=== PATIENT | male | born 1950 | race Caucasian/White ===

== ENCOUNTER 2018-09-20 08:58 | Outpatient (REF) | payer MEDICARE, MEDICAID, SELFPAY ==
[2018-09-20 11:01] LABS: BUN 17 mg/dL (7-18); CREATININE 0.85 mg/dL (0.70-1.30); Calcium 9.3 mg/dL (8.5-10.1); Chloride 100 mmol/L (98-107); Glucose 104 mg/dL (70-100); Potassium 3.5 mmol/L (3.5-5.1); Sodium 137 mmol/L (136-145)
== END 2018-09-20 09:18 ==
LOC: NCHCN 08:58
PROVIDERS: PCP Internal Medicine; Visit Provider Internal Medicine
DX: I10 Essential (primary) hypertension (principal); K42.9 Umbilical hernia without obstruction or gangrene
CPT/HCPCS: 80048

== ENCOUNTER 2019-09-10 10:01 | Outpatient (REF) | payer MEDICARE, MEDICAID, SELFPAY ==
[2019-09-10 21:39] LABS: BUN 13 mg/dL (7-18); CREATININE 0.89 mg/dL (0.70-1.30); Calcium 9.2 mg/dL (8.5-10.1); Calculated LDL 117 mg/dL (<100); Chloride 99 mmol/L (98-107); Cholesterol 202 mg/dL (<200); Glucose 122 mg/dL (74-106); HDL Cholesterol 74 mg/dL (40-60); Potassium 3.4 mmol/L (3.5-5.1); Sodium 137 mmol/L (136-145); Triglyceride 58 mg/dL (<150)
== END 2019-09-10 10:21 ==
LOC: NCHCN 10:01
PROVIDERS: PCP Internal Medicine; Visit Provider Internal Medicine
DX: E78.5 Hyperlipidemia, unspecified (principal); I10 Essential (primary) hypertension
CPT/HCPCS: 80048; 80061

== ENCOUNTER 2020-04-21 22:33 | Outpatient (REF) | payer MEDICARE, MEDICAID, SELFPAY ==
[2020-04-21 13:01] LABS: Potassium 3.3 mmol/L (3.5-5.1)
== END 2020-04-21 22:34 | disposition home or self-care (01) ==
LOC: NCHCN 22:33
PROVIDERS: PCP Internal Medicine; Visit Provider Internal Medicine
DX: I10 Essential (primary) hypertension (principal)
CPT/HCPCS: 84132

== ENCOUNTER 2020-05-12 08:37 | Outpatient (REF) | payer MEDICARE, MEDICAID, SELFPAY ==
[2020-05-12 12:11] LABS: Potassium 3.8 mmol/L (3.5-5.1)
== END 2020-05-12 08:38 | disposition home or self-care (01) ==
LOC: NCHCN 08:37
PROVIDERS: PCP Internal Medicine; Visit Provider Internal Medicine
DX: I10 Essential (primary) hypertension (principal)
CPT/HCPCS: 84132

== ENCOUNTER 2020-11-27 02:30 | Outpatient (CLI) | payer MEDICARE, MEDICAID, SELFPAY ==
--- NOTE | 2020-11-27 | DI.RAD_ITS ---
Exam(s) XR LUMBAR SPINE COMPLETE EXAM: XR LUMBAR SPINE COMPLETE CLINICAL HISTORY: RT SCIATICA, PAIN,M54.31. TECHNIQUE: 2D digital imaging was performed of the lumbar spine. Five images were obtained. AP, la teral, right oblique, left oblique and L5-S1 spot views were obtained. COMPARISON: No exams were available for comparison FINDINGS: There are 5 lumbar type vertebral bodies. There is L4 spondylolysis and grade 1 spondylolisthesis of L4 on L5. There is a mild S-type scoliotic curvature of the lower thoracic and lumbar spine. There is disc space narrowing at T12-L1 through L2-L3. Endplate hypertrophic changes are seen at multiple levels of the lumbar spine particularly at L1-L2 and L2-L3. Facet arthropathy is seen in the lower lumbar spine. No acute fracture or subluxation is seen. The bones appear osteopenic. IMPRESSION: Moderately severe degenerative changes in the lumbar spine. DATA REPOSITORY: RADIATION DOSE DELIVERED:
== END 2020-11-27 02:50 ==
PROVIDERS: PCP Family Medicine; Visit Provider Family Medicine
DX: M54.31 Sciatica, right side (principal); M47.816 Spondylosis without myelopathy or radiculopathy, lumbar region; M43.16 Spondylolisthesis, lumbar region
CPT/HCPCS: 72110

== ENCOUNTER 2021-01-08 01:13 | Outpatient (CLI) | payer MEDICARE, MEDICAID, SELFPAY ==
--- NOTE | 2021-01-08 | DI.RAD_ITS ---
Exam(s) XR HIP RT COMPLETE AP PELVIS EXAM: XR HIP RT COMPLETE AP PELVIS CLINICAL HISTORY: RT HIP PAIN, M25.551 TECHNIQUE: COMPARISON: No exams were available for comparison FINDINGS: Three views were obtained. There is moderate loss of the cartilaginous joint space of the right hip and moderate loss of the cartilaginous joint space of left hip is also noted. There are mild acetabu lar marginal osteophytes bilaterally. There is deformity of the superior cortex of the right femoral head with some flattening of the corti shahla surface. Mild subchondral sclerosis and cyst formation of femoral head also noted. IMPRESSION: Moderate DJD both hips. Femoral head deformity noted on the right, the degenerative changes are more severe in the right hip. RADIATION DOSE DELIVERED: Total DLP
== END 2021-01-08 01:33 ==
PROVIDERS: PCP Family Medicine; Visit Provider Nurse Practitioner Family
DX: M25.551 Pain in right hip (principal); M16.0 Bilateral primary osteoarthritis of hip; M21.851 Other specified acquired deformities of right thigh
CPT/HCPCS: 73502

== ENCOUNTER 2021-03-15 23:53 | Observation (INO) | payer OTHER, MEDICAID, SELFPAY ==
[2021-03-16] VITALS (10 sets, daily range): BP systolic 116–163; BP diastolic 54–87; PULSE 69–89; RESP 16–23; TEMP 36.6–37.3; O2SAT 90–97; BMI 26.4
--- NOTE | 2021-03-16 | DI.US_ITS ---
Exam(s) US ABDOMEN LIMITED EXAM: US ABDOMEN LIMITED CLINICAL HISTORY: RUQ pain TECHNIQUE: Ultrasound abdomen performed using standard protocol. COMPARISON: CT CT ABDOMEN PELVIS W from 03/16/2021 FINDINGS: LIVER: There are no hepatic lesions evident nor dilatation of intrahepatic ducts. GALLBLADDER/BILIARY: Gallstones are noted. Also intraluminal sludge. There is gallbladder wall anita a with a stripe sign, consistent with acute cholecystitis. The common hepatic duct isnot dilated, measuring 4mm at the level of ruba hepatis. PANCREAS: There is no evidence of obvious pancreatic mass nor dilatation of the pancreatic duct. Alvarez creatic head was not well seen due to overlying bowel gas. RIGHT KIDNEY:No evidence of solid mass, calculus, nor hydronephrosis. No cortical cysts evident. IMPRESSION: 1. Cholelithiasis and evidence of acute cholecystitis. This corresponds to the finding as seen on t he recent CT scan. 2. Pancreatic head not adequately seen due to overlying bowel gas. This should be restudy with repe at ultrasound when clinically feasible. DATA REPOSITORY:
--- NOTE | 2021-03-16 | RT.EKG_ITS ---
APPROVED REPORT Exam: Resting ECG Reason for Exam: epigastric pain Patient Location: E HR:70 bpm ECG Measurements Heart Rate 70 AXIS MS 178 P 52 QRSd 110 QRS 26 QT 426 T 28 QTc 462 Conclusion Sinus rhythm...normal P axis, V-rate 60- 99
--- NOTE | 2021-03-16 | DI.CT_ITS ---
Exam(s) CT ABDOMEN PELVIS W EXAM: CT ABDOMEN PELVIS W CLINICAL HISTORY: upper abdomen pain. TECHNIQUE: Imaging Protocol: Axial computed tomography images with coronal and sagittal reformatted images were created and reviewed CONTRAST MATERIAL: Intravenous: Omnipaque 100cc Oral: None COMPARISON: No exams were available for comparison FINDINGS: VISUALIZED LUNG BASES: Mild increased markings in the right lung base. No pleural effusions.. ABDOMEN: There is no evidence of generalized ascites. LIVER: There are no focal hepatic lesions evident. Mild dilatation of intrahepatic ducts is evident. GALLBLADDER/BILIARY: Large calculi noted in the gallbladder and the gallbladder wall is edematous con sistent with acute cholecystitis. CBD is not dilated. PANCREAS: Pancreatic head and uncinate process are partially hypodense, possibly related to inflammat ory change, given the other findings in the biliary tree. Pancreatic duct is not dilated. SPLEEN: Spleen is not enlarged. No obvious intrasplenic lesions. Splenic and portal veins are paten t. ADRENALS: There are no significant adrenal masses. KIDNEYS:Tiny cysts in the left kidney. No solid renal masses. No calculi nor hydronephrosis.. ABDOMINAL AORTA: Abdominal aorta is not enlarged. LYMPH NODES:There is no retroperitoneal nor paraaortic adenopathy. ABDOMINAL WALL: No evidence of significant anterior abdominal wall nor inguinal hernia. GI: There is no evidence of bowel obstruction, free air, nor abscess. PELVIS: GI: No evidence of appendicitis.There is diverticulosis of the colon at and below the splenic flexure . Also significant vulvar into the sigmoid. However, there is no evidence of acute diverticulitis. LYMPH NODES: There is no intrapelvic nor inguinal adenopathy. REPRODUCTIVE: Mild prostate enlargement. Seminal vesicles unremarkable. URINARY BLADDER: Not distended. No calculi. OSSEOUS: No lytic osseous lesions. However, there are bilateral pars defects at L4 level with javier listhesis L4 upon L5. There are degenerative changes in the right hip joint space narrowing and subarticular degenerative c ysts in the right femoral head. Similar finding not seen the-left femoral head and a lesser amount o f narrowing is noted in the left hip joint. IMPRESSION: 1. The main acute finding here is acute cholecystitis. There are large gallstones and gallbladder wa ll edema and pericholecystic fluid. The CBD itself is not dilated. 2. Pancreatic head is partially hypodense. This may be related to an element of associated pancreati tis. Cannot totally exclude mass at the level the pancreatic head. Pancreatic duct, however, is not dilated. 3. Left colon and sigmoid diverticulosis but no obvious acute diverticulitis. 4. Osseous findings as above. No lytic osseous lesions evident RADIATION DOSE DELIVERED: 1,229.04mGy.cm Total DLP DATA REPOSITORY: All CT scans at this facility are submitted to the National Radiology Data Registry (NRDR) Dose Index Registry (DIR) with the [employer] (ACR). RADIATION OPTIMIZATION: All CT scans at this facility use at least one of these dose optimization te chniques: automated exposure control; mA and/or kV adjustment per patient size (includes targeted exa ms where dose is matched to clinical indication); or iterative reconstruction.
--- NOTE | 2021-03-16 00:13 | ED.GENADUL_ITS ---
Discharge Plan Disposition Patient Disposition: [facility] INPATIENT Condition: Stable Discharge Details Chief Complaint: Abd Prob Clinical Impression: Acute cholecystitis Primary Care Provider: Ryley Holley ED Provider: Vj Moore Home Meds and New Rx's Prescriptions: No Action triamterene-hydrochlorothiazid 37.5-25 mg capsule 1 cap PO DAILY RF: 0 fluoride (sodium) [SF 5000 Plus] 1.1 % cream 1 applic dental DAILY RF: 0 amlodipine 5 mg tablet 5 mg PO DAILY RF: 0 losartan 25 mg tablet 100 mg PO QAM RF: 0 meloxicam 15 MG tablet 15 mg PO DAILY PRN PRNRF: 0 Medical Decision Making 71 yo male with hx of htn and states has a history of gallstones comes in with upper abdomen pain that is constant for a day. He is not sure if anything makes it consistently better or worse. Denies chest pain, dyspnea, fevers, n/v. Denies urinary symptoms. He is in no distress on exam. He has a nontender umbilical hernia on abdomen exam that he states is chronic and unchanged. He has no thurman's sign and is only tender in the epigastric area. I suspect either biliary colic vs gastritis, but will evaluate for more serious pathology such as cholecystitis and pancreatitis with labs and CT. No chest pain or pressure so doubt acs. labs show wbc of 13, sodium of 127 which is likely from being on hctz and also not eating that much the past day. CT shows acute cholecystitis, will discuss with general surgeon Differential Diagnosis Differential Diagnosis: ulcer, gastritis, cholecystitis Medical Records Medical records reviewed: Yes I reviewed the patient's medical records. Imaging Data Radiologic Study: Attestation: I personally reviewed and interpreted this imaging study as follows: Imaging: CT Scan Radiologist's impression: IMPRESSION: 1. CT findings of acute cholecystitis. 2. Normal appendix. 3. Avascular necrosis, right femoral head. Lab Data Lab results reviewed: Yes I reviewed the patient's lab results. ECG Data Attestation: I personally reviewed and interpreted this ECG (s) as follows: Prior ECG tracings: not available for review Interpretation: sinus rhythm, rate of 70, no acute st t wave ischemic findings HPI General Mode of arrival: ambulatory . Date/Time Provider Initiated Documentation: 03/15/21 23:55 . Limitations to Documentation: no limitations . Information obtained by: patient . History of Present Illness 71 year old M presents to the emergency department with the chief complaint of abdomen pain, described as moderate, Quality is described as stabbing and aching, and is localized to the abdomen. Patient reports no radiation. Patient started experiencing this day(s) (1) and it has been constant. No relieving factors improve symptom(s), No exacerbating factors reported . Patient notes no other symptoms.. Patient did receive the following treatments prior to arrival, none Related Data Home Medications Medication Instructions Recorded Confirmed meloxicam 15 mg PO DAILY PRN PRN 05/04/15 03/16/21 amlodipine 5 mg tablet 5 mg PO DAILY 10/19/20 03/16/21 fluoride (sodium) 1.1 % dental 1 applic DENTAL DAILY 10/19/20 03/16/21 cream losartan 25 mg tablet 100 mg PO QAM tab 10/19/20 03/16/21 triamterene 37.5 1 cap PO DAILY 10/19/20 03/16/21 mg-hydrochlorothiazide 25 mg capsule Allergies Allergy/AdvReac Type Severity Reaction Status Date / Time lisinopril AdvReac Unknown Unverified 02/03/16 15:31 General Stated Complaint: Abd Prob EBONIE: 3 Review of Systems All systems reviewed & are unremarkable except as noted in HPI and below Constitutional Constitutional: Denies chills, Denies fever(s) and Denies weakness Cardiovascular Cardiovascular: Denies chest pain and Denies dyspnea Respiratory Respiratory: Denies cough and Denies dyspnea Gastrointestinal Gastrointestinal: Denies nausea and Denies vomiting Genitourinary Genitourinary: Denies dysuria Musculoskeletal Musculoskeletal: Denies joint swelling Neurologic Neurologic: Denies weakness PFSH All Active Problems (Updated 03/16/21 @ 01:48 by Vj Moore MD) Acute cholecystitis (Acute) BPH (benign prostatic hyperplasia) (Chronic) SNHL (sensory-neural hearing loss), asymmetrical (Acute) Lumbar spondylosis (Acute) DDD (degenerative disc disease), lumbar (Acute) Medical History (Updated 03/16/21 @ 01:48 by Vj Moore MD) Hypertension Osteoarthritis Osteoarthritis involving joints of upper arms, bilateral Surgical History (Updated 10/19/20 @ 13:17 by Sarika Rodriguez RN) History of colonoscopy (~12/31/10) Social History Smoking/Tobacco Use Status: Never Smoking risk assessment performed?: Yes Drug use: Never Do you feel safe at home: Yes Do you feel safe in your relationship?: Yes Exam Const General: no acute distress Orientation: alert HENMT Head: normal to inspection Ears: external ears normal General nose exam: external nose normal Mouth: moist mucous membranes Eyes General: appearance normal, both eyes and all related structures Neck Neck: normal visual inspection Resp Effort & Inspection: normal respiratory effort and able to speak in complete sentences Cardio Rate: regular rate GI Palpation: soft and tender Skin General skin exam: no rashes or lesions noted Neuro General: patient alert and patient oriented x3 Extrem General: normal to inspection Psych Mental Status: mental status grossly normal Course Vital Signs Vital signs: Vital Signs Temperature 36.7 C 03/16/21 00:02 Pulse 84 03/16/21 00:02 Respiratory Rate 18 03/16/21 00:02 Blood Pressure 163/87 H 03/16/21 00:02 Pulse Oximetry 95 03/16/21 00:02 Temperature 36.7 C 03/16/21 00:02 Pulse 84 03/16/21 00:02 Respiratory Rate 18 03/16/21 00:02 Respiratory Effort Non-Labored 03/16/21 00:06 Blood Pressure 163/87 H 03/16/21 00:02 Pulse Oximetry 95 03/16/21 00:02 Pain Level 9 03/16/21 00:02
[2021-03-16 00:35] LABS: Source Nasal/Nares
[2021-03-16 00:37] LABS: Abs Immature Grans 0.04 10^3/uL (0.0-0.06); Absolute Basophil Count 0.04 10^3/uL (0.0-0.2); Absolute Eosinophil Count 0.01 10^3/uL (0.0-0.7); Absolute Lymphocyte Count 1.09 10^3/uL (1.2-3.4); Basophils % 0.3; Eosinophils % 0.1; HCT 41.2 % (40.0-50.0); HGB 13.7 g/dL (13.5-17.5); Immature Grans % 0.3; MCH 29.1 pg (27.0-33.0); MCHC 33.3 % (32.0-36.0); MCV 87.5 fL (80-95); MPV 9.8 fL (8.0-11.0); Neutrophils % 83.3; Nucleated RBC 0 %; Platelet Count 291 10^3/uL (130-400); RBC 4.71 10^6/uL (4.36-5.78); RDW 12.2 % (11.8-14.1); RDW-SD 39.4 fL; WBC 13.57 10^3/uL (4.4-10.8)
[2021-03-16 00:38] LABS: Absolute Monocyte Count 1.09 10^3/uL (0.1-0.8)
[2021-03-16] MEDS: Mylanta Suspension 30 ML CUP PO (00:40)
[2021-03-16 00:53] LABS: ALT 20 U/L (16-63); AST 17 U/L (15-37); Albumin 3.7 g/dL (3.4-5.0); Alkaline Phosphatase 85 U/L (46-116); Anion Gap 9.8 mmol/L (3-11); BUN 12 mg/dL (7-18); Bilirubin, Direct 0.2 mg/dL (0.0-0.2); Bilirubin, Total 0.7 mg/dL (0.2-1.0); CO2 25.2 mmol/L (21.0-32.0); CREATININE 0.9 mg/dL (0.70-1.30); Calcium 8.5 mg/dL (8.5-10.1); Chloride 92 mmol/L (98-107); Glucose 151 mg/dL (74-106); Lipase 50 U/L (73-393); Potassium 3.4 mmol/L (3.5-5.1); Sodium 127 mmol/L (136-145); Total Protein 7.3 g/dL (6.4-8.2); Troponin I < 50 ng/L (<or=60)
[2021-03-16] MEDS: Omnipaque 350 MG/ML 100 ML BTL IJ (01:11)
[2021-03-16 01:13] LABS: COVID-19 PCR Negative (Negative)
--- NOTE | 2021-03-16 01:32 | DI.VRAD_ITS ---
PROCEDURE INFORMATION: Exam: CT Abdomen And Pelvis With Contrast Exam date and time: 03/16/2021 12:13 AM Age: 71 years old Clinical indication: Other: Upper abd pain TECHNIQUE: Imaging protocol: Computed tomography of the abdomen and pelvis with contrast. Contrast material: OMNI 350; Contrast volume: 100 ml; Contrast route: INTRAVENOUS (IV); COMPARISON: CR XR HIP RT COMPLETE AP PELVIS 01/08/2021 8:15 AM FINDINGS: Lungs: Peripheral reticulation and ground-glass opacity are present, pleural-based. Liver: Unremarkable liver. Negative for suspicious mass. Gallbladder and bile ducts: Abnormal gallbladder. Moderate fat stranding is noted around the gallbladder. Calcified stones are observed, including a stone at the gallbladder neck. Mild fluid is observed around the gallbladder. Negative for biliary ductal dilatation. Pancreas: Normal. No ductal dilation. Spleen: Normal. No splenomegaly. Adrenal glands: Normal. No mass. Kidneys and ureters: Normal. No hydronephrosis. Stomach and bowel: Unremarkable stomach. Nondilated small bowel. Negative for inflammatory changes around the colon. Diverticula are present throughout the descending and sigmoid colon. Appendix: Normal appendix. Intraperitoneal space: Unremarkable. No free air. No significant fluid collection. Vasculature: Unremarkable. No abdominal aortic aneurysm. Lymph nodes: Unremarkable. No enlarged lymph nodes. Urinary bladder: Unremarkable as visualized. Reproductive: Unremarkable as visualized. Bones/joints: Bilateral pars defects noted at L4. Anterolisthesis L4 on L5 measures 9 mm. Multilevel degenerative disc disease and facet arthropathy present. Negative for compression fracture. Subchondral lucency and collapse noted at the right femoral head. Soft tissues: Periumbilical abdominal wall hernia contains fat. Hernia neck 1.0 cm. Hernia sac 4.1 cm. IMPRESSION: 1. CT findings of acute cholecystitis. 2. Normal appendix. 3. Avascular necrosis, right femoral head. Dictated and Authenticated by: Vj Bautista MD. Ordering:ANISHA Zabala MD
[2021-03-16] MEDS: HYDROmorphone 2 MG/ML VIAL 1 MG IVP ×2 (02:24→07:00)
[2021-03-16] MEDS: PIPERACILLIN/TAZO 4.5 GM in Normal Saline 100 ML IVPB (02:25)
[2021-03-16] MEDS: Normal Saline 1,000 ML 100 ML IV (02:25)
--- NOTE | 2021-03-16 08:53 | W.ANESPRE ---
General Info Date of Service Date Performed: 03/16/21 Height: 6 ft Weight: 88.451 kg Body Mass Index (BMI): 26.4 Surgical Procedure: Operation Date: 03/16/21 12:40 Proposed Procedures Side Surgeon p Cholecystectomy Laparoscopic Smiley Damon DO Meds Allergies and Home Medications Allergies Allergy/AdvReac Type Severity Reaction Status Date / Time lisinopril AdvReac Unknown Unverified 02/03/16 15:31 Home Medication Medication Instructions Recorded meloxicam 15 mg PO DAILY PRN PRN 05/04/15 amlodipine 5 mg tablet 5 mg PO DAILY 10/19/20 fluoride (sodium) 1.1 % dental 1 applic DENTAL DAILY 10/19/20 cream losartan 25 mg tablet 100 mg PO QAM tab 10/19/20 triamterene 37.5 1 cap PO DAILY 10/19/20 mg-hydrochlorothiazide 25 mg capsule Current Visit Medications: Current Medications Generic Name Dose Route Start Last Admin Trade Name Freq PRN Reason Stop Dose Admin Amlodipine Besylate 5 mg 03/16/21 08:30 Amlodipine 5 Mg Tab PO DAILY [facility] Hydromorphone HCl 1 mg 03/16/21 02:07 03/16/21 07:00 Hydromorphone 2 Mg/Ml Vial IVP 1 mg Q4H PRN PRN Administration Sodium Chloride 1,000 mls @ 100 mls/hr 03/16/21 01:45 03/16/21 02:25 Saline 1000ml Bag IV 100 mls/hr INFUSION TERRA Administration Acetaminophen 1,000 mg in 100 mls @ 400 mls/hr 03/16/21 08:00 Ofirmev IVPB Q8H [facility] Piperacillin Sod/Tazobactam 50 mls @ 100 mls/hr 03/16/21 08:00 Sod 3.375 gm/ Sodium Chloride IVPB Q6H [facility] Protocol IV Miscellaneous Supplies 1 each 03/16/21 02:15 Iv Access IV DIRECTED [facility] Losartan Potassium 100 mg 03/16/21 08:30 Losartan 25 Mg Tab PO DAILY [facility] Ondansetron HCl 4 mg 03/16/21 02:07 Ondansetron 4 Mg/2 Ml Vial IVP Q4H PRN PRN Pantoprazole Sodium 40 mg 03/16/21 08:30 Pantoprazole 40 Mg Vial IVP Q24H [facility] Sodium Chloride 0 ml 03/16/21 02:07 Normal Saline Flush 10 Ml Syr IVP PRN PRN Triamterene/Hydrochlorothiazide 1 cap 03/16/21 08:30 Triamterene 37.5/Hctz 25 Cap PO DAILY TERRA PFSH Active Problems Active Problems: Problem Status Onset Code Acute cholecystitis K81.0 BPH (benign prostatic hyperplasia) N40.0 SNHL (sensory-neural hearing loss), asymmetrical H90.3 Lumbar spondylosis M47.816 DDD (degenerative disc disease), lumbar M51.36 Medical History Medical History (Updated 03/16/21 @ 01:48 by Vj Moore MD) Hypertension Osteoarthritis Osteoarthritis involving joints of upper arms, bilateral Surgical History Surgical History (Updated 10/19/20 @ 13:17 by Sarika Rodriguez RN) History of colonoscopy (~12/31/10) Tobacco Smoking/Tobacco Use Status: Never Substance Use Substance use: Never Vital Signs and Lab Results Vital Signs Most Recent Vital Signs in EMR: Most Recent Vital Signs Temp Pulse Resp BP Pulse Ox 37.1 C 87 16 137/81 92 03/16/21 07:25 03/16/21 07:25 03/16/21 07:25 03/16/21 07:25 03/16/21 07:25 Lab Results Result Diagrams: 03/16/21 09:35 03/16/21 09:35 Blood Type / Crossmatch: No Data to Display Complete Blood Count: White Blood Count 15.45 10^3/uL (4.4-10.8) H 03/16/21 09:35 03/16/21 Red Blood Count 4.93 10^6/uL (4.36-5.78) 03/16/21 09:35 03/16/21 Hemoglobin 14.4 g/dL (13.5-17.5) 03/16/21 09:35 03/16/21 Hematocrit 43.4 % (40.0-50.0) 03/16/21 09:35 03/16/21 Platelet Count 270 10^3/uL (130-400) 03/16/21 09:35 03/16/21 Complete Metabolic Panel: Sodium Level 131 mmol/L (136-145) L 03/16/21 09:35 03/16/21 Potassium Level 3.1 mmol/L (3.5-5.1) L 03/16/21 09:35 03/16/21 Chloride Level 95 mmol/L (98-107) L 03/16/21 09:35 03/16/21 Carbon Dioxide Level 25.5 mmol/L (21.0-32.0) 03/16/21 09:35 03/16/21 Blood Urea Nitrogen 11 mg/dL (7-18) 03/16/21 09:35 03/16/21 Creatinine 0.9 mg/dL (0.70-1.30) 03/16/21 09:35 03/16/21 Estimated GFR/1.73 m2 >= 60.00 (mL/min/1.73m2) 03/16/21 09:35 03/16/21 Magnesium Level 2.3 mg/dL (1.8-2.4) 03/16/21 09:35 03/16/21 Calcium Level 8.5 mg/dL (8.5-10.1) 03/16/21 09:35 03/16/21 Albumin 3.6 g/dL (3.4-5.0) 03/16/21 09:35 03/16/21 Glucose Level 121 mg/dL (74-106) H 03/16/21 09:35 03/16/21 Liver Function Panel: Alanine Aminotransferase (ALT/SGPT) 25 U/L (16-63) 03/16/21 09:35 03/16/21 Aspartate Amino Transf (AST/SGOT) 18 U/L (15-37) 03/16/21 09:35 03/16/21 Coagulation Panel: No Data to Display Cardiac Panel: Troponin I < 50 ng/L (<or=60) 03/16/21 Arterial Blood Gas: No Data to Display Venous Blood Gas: No Data to Display Pancreas Panel: Lipase 59 U/L (73-393) 03/16/21 09:35 03/16/21 Thyroid Panel: No Data to Display Infectious Disease: Coronavirus (COVID-19)(PCR) Negative (Negative) 03/16/21 00:30 03/16/21 Coronavirus 2019 Source Nasal/Nares 03/16/21 00:30 03/16/21 Blood Cultures: No Data to Display Toxicology Panel: No Data to Display Imaging and Studies Imaging and Studies Study information below may be from another EMR and interpreted by another provider. Please see original notes in EMR for more complete details. EKG Summary: DATE/TIME OF SERVICE: 03/16/21 0039 Exam: Resting ECG Reason for Exam: epigastric pain HR:70 bpm ECG Measurements Heart Rate 70 AXIS NV 178 P 52 QRSd 110 QRS 26 QT 426 T28 QTc 462 Conclusion Sinus rhythm...normal P axis, V-rate 60- 99 Anesthesia Assessment and Plan Anesthesia History Personal History: No History of Anesthesia Complications Family History: No Family History of Anesthesia Complications Exercise Tolerance Exercise Tolerance: Metabolic Equivalents>4 Pertinent Negatives Pertinent Negatives: No Symptoms of GERD, No Major Cardiovascular Symptoms or Complaints, No Major Pulmonary Symptoms or Complaints and No History of CVA/TIA Cardiac & Pulmonary Exam Cardiac Exam: Normal S1/S2 Heart Sounds Pulmonary Exam: Clear Bilateral Breath Sounds Implantable Cardiac Device Does patient have a Pacemaker or an ICD?: No Airway Exam Known Difficult Airway: No Mallampati Class: 1 Mouth Opening: Normal (> 3cm) Thyromental Distance: Greater than 3 cm Neck Range of Motion: Full ROM Neck Circumference: Thick Teeth Condition: Normal Dentition ASA Classification ASA Score: ASA 2 Emergency Case?: No NPO Status NPO Status: NPO Clears >2 hours, Solids >8 hours Anesthesia Plan Resuscitation Status: Full Code Anesthesia Technique: General Anesthesia Airway Planned: Endotracheal Tube Monitors Used: Standard Monitors
[2021-03-16 09:41] LABS: HCT 43.4 % (40.0-50.0); HGB 14.4 g/dL (13.5-17.5); MCH 29.2 pg (27.0-33.0); MCHC 33.2 % (32.0-36.0); MPV 9.6 fL (8.0-11.0); Nucleated RBC 0 %; Platelet Count 270 10^3/uL (130-400); RBC 4.93 10^6/uL (4.36-5.78); RDW 12.4 % (11.8-14.1); WBC 15.45 10^3/uL (4.4-10.8)
[2021-03-16] MEDS: ACETAMINOPHEN 1,000 MG/100 ML BTL 400 MG IVPB ×2 (09:46→23:54)
[2021-03-16] MEDS: PIPERACILLIN/TAZO 3.375 GM in Normal Saline 50 ML IVPB ×3 (09:47→22:27)
[2021-03-16 09:48] LABS: Lipase 59 U/L (73-393)
[2021-03-16] MEDS: Normal Saline Flush 10 ML SYR IVP ×3 (09:48→22:32)
[2021-03-16] MEDS: Pantoprazole 40 MG VIAL IVP (09:49)
[2021-03-16 10:00] LABS: Absolute Lymphocyte Count 0.77 10^3/uL (1.2-3.4); Absolute Monocyte Count 1.08 10^3/uL (0.1-0.8); Atypical Lymphocytes % 4; Diff Comment Manual Differential; RBC Morphology Normal
[2021-03-16 10:02] LABS: ALT 25 U/L (16-63); AST 18 U/L (15-37); Albumin 3.6 g/dL (3.4-5.0); Alkaline Phosphatase 84 U/L (46-116); Anion Gap 10.5 mmol/L (3-11); BUN 11 mg/dL (7-18); Bilirubin, Total 0.9 mg/dL (0.2-1.0); CO2 25.5 mmol/L (21.0-32.0); CREATININE 0.9 mg/dL (0.70-1.30); Calcium 8.5 mg/dL (8.5-10.1); Chloride 95 mmol/L (98-107); Glucose 121 mg/dL (74-106); Potassium 3.1 mmol/L (3.5-5.1); Sodium 131 mmol/L (136-145); Total Protein 7.4 g/dL (6.4-8.2)
[2021-03-16 10:36] LABS: Magnesium 2.3 mg/dL (1.8-2.4)
[2021-03-16] MEDS: amLODIPine 5 MG TAB PO (10:44)
[2021-03-16] MEDS: Triamterene 37.5/HCTZ 25 CAP PO (10:44)
--- NOTE | 2021-03-16 12:15 | HPE_ITS ---
Date of service: 03/16/21 Time of Service: 12:15 Assessment and Plan Assessment and plan (1) Acute cholecystitis: Status: Acute Assessment and plan: lap brando and hernia repair w/ out mesh today. possi ble open zosyn pt will need to be admitted postOp for abx pain management pulm toilet/DVT proph no signif PMHx (2) BPH (benign prostatic hyperplasia): Status: Chronic (3) SNHL (sensory-neural hearing loss), asymmetrical: Status: Acute (4) Lumbar spondylosis: Status: Acute (5) DDD (degenerative disc disease), lumbar: Status: Acute History of Present Illness Narrative: Patient has a longstanding history of gallstones and gallbladder problems. Yesterday the pain became severe and he could not tolerate he came into the ER. He does have a low-grade low-grade white count and fever. He continues to clinically. He has a large stone in the neck on ultrasound and edema of the wall of the gallbladder and fluid around the gallbladder. He does need to have his gallbladder out. We did discuss we could expect during surgery, recovery time and risks and benefits. Patient is agreeable to. The only surgery he has ever had colonoscopies. He has no problems with anesthesia for this procedure. He is intolerant to lisinopril he has never had a heart attack or stroke. He does not have seizures, asthma, diabetes. He is not on any blood thinners. He does not take meloxicam daily. . The alternatives to surgery, risks, complications, and the possible need to convert to open cholecystectomy were discussed. Also bleeding, infection, pneumonia, blood clots, complications of anesthesia, damage to bowel, bladder, blood vessels, or bile ducts, liver, need for blood transfusions. Also: chronic pain, chronic diarrhea, reoccurrence of signs and symptoms, port site hernias, adhesions. All questions were answered and the patient elected to proceed with surgery. CT: GALLBLADDER/BILIARY: Large calculi noted in the gallbladder and the gallbla dder wall is edematous consistent with acute cholecystitis. CBD is not dilated. labs reviewed Review of Systems All systems reviewed & are unremarkable except as noted in HPI and below PFSH All Active Problems (Updated 03/16/21 @ 01:48 by Vj Moore MD) Acute cholecystitis (Acute) BPH (benign prostatic hyperplasia) (Chronic) SNHL (sensory-neural hearing loss), asymmetrical (Acute) Lumbar spondylosis (Acute) DDD (degenerative disc disease), lumbar (Acute) Medical History (Updated 03/16/21 @ 01:48 by Vj Moore MD) Hypertension Osteoarthritis Osteoarthritis involving joints of upper arms, bilateral Surgical History (Updated 10/19/20 @ 13:17 by Sarika Rodriguez RN) History of colonoscopy (~12/31/10) Social History Smoking/Tobacco Use Status: Never Smoking risk assessment performed?: Yes Drug use: Never Do you feel safe at home: Yes Do you feel safe in your relationship?: Yes Meds Allergies and Home Medications Allergies Allergy/AdvReac Type Severity Reaction Status Date / Time lisinopril AdvReac Unknown Unverified 02/03/16 15:31 Home Medications Medication Instructions Recorded Confirmed Type meloxicam 15 mg PO DAILY PRN PRN 05/04/15 03/16/21 History amlodipine 5 mg tablet 5 mg PO DAILY 10/19/20 03/16/21 History fluoride (sodium) 1.1 % dental 1 applic DENTAL DAILY 10/19/20 03/16/21 History cream losartan 25 mg tablet 100 mg PO QAM tab 10/19/20 03/16/21 History triamterene 37.5 1 cap PO DAILY 10/19/20 03/16/21 History mg-hydrochlorothiazide 25 mg capsule Exam Const General: cooperative, healthy appearing, comfortable, no acute distress, well developed and well groomed Nutritional Appearance: average body habitus and well nourished Orientation: alert, awake and oriented x3 HENMT Head: normal to inspection, normocephalic and atraumatic Ears: hearing grossly normal bilaterally and external ears normal General nose exam: external nose normal Face and sinus: normal facial exam and sinuses nontender Mouth: oral mucosae normal, lip normal, tongue normal and moist mucous membranes Teeth and gingiva: dentition normal Other: + glasses Eyes General: appearance normal, both eyes and all related structures Conjunctivae: conjunctivae normal Sclera: sclerae normal Pupils: PERRL Neck Neck: normal visual inspection and full ROM Chest Chest: normal inspection of the chest Resp Effort & Inspection: normal respiratory effort, able to speak in complete sentences, no cough, no nasal flaring, not tachypneic and no use of accessory muscles Auscultation: clear to auscultation bilaterally, no rales, no rhonchi and no wheezes Cardio Jugular venous pressure: no JVD Rate: regular rate Rhythm: regular rhythm GI Inspection: no edema and non-distended Palpation: soft, no masses, tender and No ascites Auscultation: normal bowel sounds Other: Right quadrant rebound and guarding. Large umbilical hernia. Skin General skin exam: no rashes or lesions noted Trauma: no lacerations or abrasions Neuro General: patient alert, patient oriented x3, oriented, gait normal, moves all extremities, no focal motor deficits and CN's II-XI intact bilaterally Cognition: normal cognition Speech: speech normal Gait: normal gait Motor: muscle tone normal throughout Extrem General: no clubbing, cyanosis or edema Other: He does have changes in his joint with mild osteoarthritis. Psych Appearance: grossly normal and well kempt Mental Status: mental status grossly normal Speech and Movement: speech and movement normal Affect: normal affect Results Labs Result diagrams: 03/16/21 09:35 03/16/21 09:35 Labs: Laboratory Results - last 24 hr 03/16/21 03/16/21 03/16/21 00:25 00:25 00:30 WBC 13.57 H RBC 4.71 Hgb 13.7 Hct 41.2 MCV 87.5 MCH 29.1 MCHC 33.3 RDW 12.2 Plt Count 291 MPV 9.8 Immature Gran % 0.3 Neutrophils % 83.3 Lymphocytes % 8.0 Atypical Lymphs % Monocytes % 8.0 Eosinophils % 0.1 Basophils % 0.3 Nucleated RBC % 0 Absolute Neutrophils 11.30 H Absolute Lymphocytes 1.09 L Absolute Monocytes 1.09 H Absolute Eosinophils 0.01 Absolute Basophils 0.04 RBC Morphology Sodium 127 L Potassium 3.4 L Chloride 92 L Carbon Dioxide 25.2 Anion Gap 9.8 BUN 12 Creatinine 0.9 Estimated GFR/1.73 m2 >= 60.00 Glucose 151 H Calcium 8.5 Magnesium Total Bilirubin 0.7 Conjugated Bilirubin 0.2 AST 17 ALT 20 Alkaline Phosphatase 85 Troponin I < 50 Total Protein 7.3 Albumin 3.7 Lipase 50 COVID-19 Source Nasal/Nares SARS-CoV-2 (PCR) Negative 03/16/21 03/16/21 03/16/21 09:35 09:35 09:35 WBC 15.45 H RBC 4.93 Hgb 14.4 Hct 43.4 MCV 88.0 MCH 29.2 MCHC 33.2 RDW 12.4 Plt Count 270 MPV 9.6 Immature Gran % 0.0 Neutrophils % 88.0 Lymphocytes % 1.0 Atypical Lymphs % 4 Monocytes % 7.0 Eosinophils % 0.0 Basophils % 0.0 Nucleated RBC % 0 Absolute Neutrophils 13.60 H Absolute Lymphocytes 0.77 L Absolute Monocytes 1.08 H Absolute Eosinophils 0.00 Absolute Basophils 0.00 RBC Morphology Normal Sodium 131 L Potassium 3.1 L Chloride 95 L Carbon Dioxide 25.5 Anion Gap 10.5 BUN 11 Creatinine 0.9 Estimated GFR/1.73 m2 >= 60.00 Glucose 121 H Calcium 8.5 Magnesium 2.3 Total Bilirubin 0.9 Conjugated Bilirubin AST 18 ALT 25 Alkaline Phosphatase 84 Troponin I Total Protein 7.4 Albumin 3.6 Lipase COVID-19 Source SARS-CoV-2 (PCR) 03/16/21 09:35 WBC RBC Hgb Hct MCV MCH MCHC RDW Plt Count MPV Immature Gran % Neutrophils % Lymphocytes % Atypical Lymphs % Monocytes % Eosinophils % Basophils % Nucleated RBC % Absolute Neutrophils Absolute Lymphocytes Absolute Monocytes Absolute Eosinophils Absolute Basophils RBC Morphology Sodium Potassium Chloride Carbon Dioxide Anion Gap BUN Creatinine Estimated GFR/1.73 m2 Glucose Calcium Magnesium Total Bilirubin Conjugated Bilirubin AST ALT Alkaline Phosphatase Troponin I Total Protein Albumin Lipase 59 COVID-19 Source SARS-CoV-2 (PCR) Last Vital Signs Temp 37.1 C 03/16/21 07:25 Pulse 87 03/16/21 07:25 Resp 16 03/16/21 07:25 BP 137/81 03/16/21 07:25 Pulse Ox 92 03/16/21 07:25
[2021-03-16] MEDS: Lactated Ringers 1,000 ML 80 ML IV (13:09)
--- NOTE | 2021-03-16 13:15 | INITIAL_ITS ---
- If Service Date Differs Date of service: 03/16/21 Time of Service: 13:15 Care Management Initial Assess REASON FOR HOSPITALIZATION:: acute cholecystitis PAST MEDICAL HISTORY/PAST SURGICAL HISTORY:: All Active Problems. Acute cholecystitis (Acute). BPH (benign prostatic hyperplasia) (Chronic). SNHL (sensory-neural hearing loss), asymmetrical (Acute). Lumbar spondylosis (Acute). DDD (degenerative disc disease), lumbar (Acute). Medical History. Hypertension. Osteoarthritis. Osteoarthritis involving joints of upper arms, bilateral. Surgical History. History of colonoscopy (~12/31/10) PREVIOUS FUNCTIONAL STATUS/SOCIAL/FAMILY SUPPORTS:: Navneet lives in an apartment in [place]. He has a female partner, Shalini, who also lives in [place]. He is independent at baseline. CURRENT FUNCTIONAL STATUS:: Navneet was in the OR when CM attempted to visit with him today. Per report, he has a long standing history of gallstones and gallbladder problems. He will be admitted post operatively for antibiotics and pain management. CM will continue to follow. ADVANCE DIRECTIVES:: None on file. Has patient been provided with info about the portal/API?: No Did the patient sign up for the portal?: No CODE STATUS:: Full Code INSURANCE COVERAGE / FINANCIAL ISSUES:: [employer]; MCR; [facility] CURRENT HOME/COMMUNITY SERVICES/EQUIPMENT:: No known services or equipment. PRIMARY CARE PHYSICIAN:: Dr. Holley, [facility] POTENTIAL DISCHARGE NEEDS:: Evaluations for further needs, follow up appointments. PATIENT/FAMILY EDUCATION NEEDS:: Review discharge instructions and limitations, discussion of self care needs including ask me three. ANTICIPATED BARRIERS TO DISCHARGE:: None identified at this time. TRANSPORTATION:: Via private vehicle with family. PLAN:: Anticipate Navneet will return home once medically cleared by MD. He will transport via private vehicle by family, and will follow up with his PCP and discharge plan of care. CM will continue to follow.
[2021-03-16] MEDS: Cellulose,Oxidized 4X8 1 PACKET MC (14:16)
--- NOTE | 2021-03-16 14:38 | GB_PTH ---
PATIENT: Navneet Padlila LOC: U#:[id number] AGE/SX: 71/M ROOM: 231 RE03/16/[address]: Miriam Savage MD : [id number] BED: A DIS: 03/18/2021 SPEC #: [id number] RECD: 03/16/21 17:34 STATUS: ODALYS REQ #: [id number] HARJEET: 03/16/21 14:[address]: Miriam Savage DEPT: Surgical Specimen RECD BY: Renata Ruiz ENTERED: 03/16/21 17:35 SP TYPE: GB OTHR DR: Ryley Holley Tissues: 1 - GALLBLADDER Procedures: GROSS AND MICRO LEVEL 3 Comments: [id number]
[2021-03-16] MEDS: Bupivacaine 0.25% Pres-Free 30 ML VIAL (14:57)
--- NOTE | 2021-03-16 15:25 | ROE_ITS ---
Date of service: 03/16/21 Time of Service: 15:25 Operative Note Operative Note DATE OF PROCEDURE: 03/16/21 PRE-OP DIAGNOSIS: acute brando w/ stones POST-OP DIAGNOSIS: same PROCEDURE: rj brando incidental umbilical hernia repair SURGEON: Santa Sheridan FORENSIC SERGEANT: Andria Gleason ANESTHESIA TYPE: Local By Surgeon and General LMA/ETT Refer to Anesthesia Record ESTIMATED BLOOD LOSS: 100 PATHOLOGY: other COMPLICATIONS: None Patient was transported to: PACU Patient's condition: stable Procedure Description: The patient agrees and is brought to the operative room suite and placed in supine position. Anesthesia was administered per the Department of Anesthesia. The patient did receive IV antibiotics. NG tube and Beckford catheter are placed. The patient was prepped and draped in the usual sterile fashion using DuraPrep scrub solution. Pause for the cause was done. 20 mL of 1% buffered lidocaine was used for local anesthetization. A stab incision was made in the umbilicus, and a cutdown is done in the standard fashion. He has a large umbilical hernia. The camera was inserted through the port and shows no damage to underlying structures. A 10 mm port was then placed in the epigastric position under direct visualization following creation of local field blocks as well as two 5 mm ports in the right upper quadrant. The omentum is adhered up to the gallbaldder. This is taken down w/ blunt dissecton. There is significant edema/inflammation around the gallbladder and hepatoduodenal ligament. The GB is very distended and the wall thickened. The GB is drained. The gallbladder fundus was grasped and retracted towards the right shoulder. Infundibulum was grasped and retracted laterally. The hepat-duodenal ligament is entered. The cystic duct and artery are dissected out and the most inferior portion of the gallbladder plate is removed from the liver and the critical view of safety was obtained after clearing away all fatty material. Endo Clips were placed across the duct and artery and these structures are divided. The remainder of the gallbladder was excised from the liver bed. The liver bed is quite friable and bleeds readily. the gallbladder was placed in a bag and brought out. The umbilical hernia is incision is enlarged to facilitate removal of the gallbladder as well as repair of the umbilical hernia. Surgicel and Floseal are used to aid in hemostasis of the liver bed examination of the gallbladder shows indeed the cystic duct and artery to have been divided. The remainder of the abdomen was copiously irrigated with a liter of saline. All saline is removed. There is no bleeding or bile leakage from the liver bed or the clips sites. An EndoClose needle was used to close the 10 mm port site with an 0 Vicryl. All ports and instruments are removed. SPonge and needle counts are correct. Pneumoperitoneum is evacuated and the port sites are monitored to make sure there is no bleeding at the time of desufflation. The epigastric port site is instilled w/ 10cc Experel at the time of closure. The umbilicus is dissected off of the hernia sac. The sac is excised. The sac contains omentum. This is returned to the abdominal cavity. I did have to extend the size of the hernia in order to facilitate removal of the gallbladder. This is closed with 0 Vicryl in interrupted fashion. Mesh was not placed because of the gross infection of the gallbladder. Port sites are irrigated and the skin is closed with 4-0 Monocryl in a running subcuticular fashion. Skin glue sterile dressings are applied. The patient tolerated the procedure well without complications, transferred to the recovery room in stable condition. SANTA SHERIDAN, DO
--- NOTE | 2021-03-16 15:46 | W.ANESPOSTOP ---
Postoperative Evaluation Date, Time and Location Date Performed: 03/16/21 Time Performed: 15:46 Patient Location: PACU Vital Signs Most Recent Imported Vital Signs: Most Recent Vital Signs Temp Pulse Resp BP Pulse Ox 36.6 C 70 22 137/83 97 03/16/21 15:35 03/16/21 15:35 03/16/21 15:35 03/16/21 15:35 03/16/21 15:35 Pain Score Most Recent Pain Score: Most Recent Pain Score Pain Level 0 03/16/21 15:35 Assessment Mental Status: Arousable with meaningful communication Airway and Respiratory Function: Patent airway with normal (patient baseline) respiratory exam Cardiovascular Function: Hemodynamically Stable Hydration Status: Adequately Hydrated Nausea & Vomiting: No Nausea or Vomiting Pain: Pt. Denies Any Pain Peripheral Nerve Block: Patient did not receive a nerve block
[2021-03-16] MEDS: Ketorolac 15 MG/ML VIAL IVP ×2 (16:38→22:31)
[2021-03-16] MEDS: Lactated Ringers 1,000 ML 120 ML IV (16:39)
--- NOTE | 2021-03-16 18:52 | W.PM.PROGNOT ---
Date of Service Date of service: 03/16/21 Time of Service: 18:53 Assessment and Plan Assessment and plan (1) Acute cholecystitis: Status: Acute Assessment and plan: The patient is doing well post-op. Their pain is well controlled. They are having no nausea or vomiting. The pt is not having any chest pain or SOB, productive cough; no calf pain or swelling. The pt is making good urine. The pt pain is adequately controlled. The case was discussed with nursing and patient?s progress reviewed. All of the pt's home medications were addressed and adjusted accordingly for their oral intact status. HEENT: no jaundice. no eye pain/drainage/redness/swelling. Mild sore throat Cardio- NSR no chest pain, BP stable. Pulm: no sob or productive cough. no hemoptysis Incision- clean/dry. Dressing intact no excessive bleeding or drainage I discussed with the patient and/or there family about the findings in surgery and the pt's progress. We reviewed expectations for progress in the hospital; what the pt could expect for recovery time and length of stay. We discussed the importance of walking and pulmonary toilet to avoid blood clots and pneumonia. Continue current plans for pulmonary toilet, GI and DVT prophylaxis. We shall continue the current plan for pain management as it is at an appropriate level, and working well for the pt. Appropriate measures will be taken for constipation prevention, and this was also reviewed with the pt. The wound care plan was reviewed with nursing as well. see orders (2) BPH (benign prostatic hyperplasia): Status: Chronic (3) SNHL (sensory-neural hearing loss), asymmetrical: Status: Acute (4) Lumbar spondylosis: Status: Acute (5) DDD (degenerative disc disease), lumbar: Status: Acute (6) Hypertension: (7) Osteoarthritis: Objective Last Vital Signs Temp 36.9 C 03/16/21 16:13 Pulse 79 03/16/21 16:13 Resp 16 03/16/21 16:13 BP 123/69 03/16/21 16:13 Pulse Ox 92 03/16/21 16:13 Laboratory Results - last 24 hr 03/16/21 03/16/21 03/16/21 00:25 00:25 00:30 WBC 13.57 H RBC 4.71 Hgb 13.7 Hct 41.2 MCV 87.5 MCH 29.1 MCHC 33.3 RDW 12.2 Plt Count 291 MPV 9.8 Immature Gran % 0.3 Neutrophils % 83.3 Lymphocytes % 8.0 Atypical Lymphs % Monocytes % 8.0 Eosinophils % 0.1 Basophils % 0.3 Nucleated RBC % 0 Absolute Neutrophils 11.30 H Absolute Lymphocytes 1.09 L Absolute Monocytes 1.09 H Absolute Eosinophils 0.01 Absolute Basophils 0.04 RBC Morphology Sodium 127 L Potassium 3.4 L Chloride 92 L Carbon Dioxide 25.2 Anion Gap 9.8 BUN 12 Creatinine 0.9 Estimated GFR/1.73 m2 >= 60.00 Glucose 151 H Calcium 8.5 Magnesium Total Bilirubin 0.7 Conjugated Bilirubin 0.2 AST 17 ALT 20 Alkaline Phosphatase 85 Troponin I < 50 Total Protein 7.3 Albumin 3.7 Lipase 50 COVID-19 Source Nasal/Nares SARS-CoV-2 (PCR) Negative 03/16/21 03/16/21 03/16/21 09:35 09:35 09:35 WBC 15.45 H RBC 4.93 Hgb 14.4 Hct 43.4 MCV 88.0 MCH 29.2 MCHC 33.2 RDW 12.4 Plt Count 270 MPV 9.6 Immature Gran % 0.0 Neutrophils % 88.0 Lymphocytes % 1.0 Atypical Lymphs % 4 Monocytes % 7.0 Eosinophils % 0.0 Basophils % 0.0 Nucleated RBC % 0 Absolute Neutrophils 13.60 H Absolute Lymphocytes 0.77 L Absolute Monocytes 1.08 H Absolute Eosinophils 0.00 Absolute Basophils 0.00 RBC Morphology Normal Sodium 131 L Potassium 3.1 L Chloride 95 L Carbon Dioxide 25.5 Anion Gap 10.5 BUN 11 Creatinine 0.9 Estimated GFR/1.73 m2 >= 60.00 Glucose 121 H Calcium 8.5 Magnesium 2.3 Total Bilirubin 0.9 Conjugated Bilirubin AST 18 ALT 25 Alkaline Phosphatase 84 Troponin I Total Protein 7.4 Albumin 3.6 Lipase COVID-19 Source SARS-CoV-2 (PCR) 03/16/21 09:35 WBC RBC Hgb Hct MCV MCH MCHC RDW Plt Count MPV Immature Gran % Neutrophils % Lymphocytes % Atypical Lymphs % Monocytes % Eosinophils % Basophils % Nucleated RBC % Absolute Neutrophils Absolute Lymphocytes Absolute Monocytes Absolute Eosinophils Absolute Basophils RBC Morphology Sodium Potassium Chloride Carbon Dioxide Anion Gap BUN Creatinine Estimated GFR/1.73 m2 Glucose Calcium Magnesium Total Bilirubin Conjugated Bilirubin AST ALT Alkaline Phosphatase Troponin I Total Protein Albumin Lipase 59 COVID-19 Source SARS-CoV-2 (PCR)
[2021-03-17] MEDS: Lactated Ringers 1,000 ML 120 ML IV (01:00)
[2021-03-17 03:22] VITALS: BP 107/52; PULSE 71; RESP 16; TEMP 36.1; O2SAT 92
[2021-03-17] MEDS: PIPERACILLIN/TAZO 3.375 GM in Normal Saline 50 ML IVPB ×4 (04:07→22:34)
[2021-03-17] MEDS: Ketorolac 15 MG/ML VIAL IVP ×4 (04:19→22:35)
[2021-03-17] MEDS: Normal Saline Flush 10 ML SYR IVP ×2 (04:20→22:35)
[2021-03-17 07:39] LABS: Abs Immature Grans 0.06 10^3/uL (0.0-0.06); Absolute Lymphocyte Count 1.15 10^3/uL (1.2-3.4); Absolute Monocyte Count 1.26 10^3/uL (0.1-0.8); Basophils % 0.2; HCT 36.1 % (40.0-50.0); HGB 11.9 g/dL (13.5-17.5); Immature Grans % 0.5; Lymphocytes % 8.7; MPV 9.6 fL (8.0-11.0); Monocytes % 9.5; Neutrophils % 81.1; Nucleated RBC 0 %; Platelet Count 253 10^3/uL (130-400); RDW 12.3 % (11.8-14.1); RDW-SD 39.8 fL; WBC 13.27 10^3/uL (4.4-10.8)
[2021-03-17 07:44] LABS: Absolute Basophil Count 0.03 10^3/uL (0.0-0.2); Absolute Neutrophil Count 10.76 10^3/uL (1.2-6.7)
[2021-03-17 08:21] VITALS: BP 135/71; PULSE 63; RESP 18; TEMP 36.4; O2SAT 95
--- NOTE | 2021-03-17 08:28 | W.PM.PROGNOT ---
Date of Service Date of service: 03/17/21 Time of Service: 08:29 Assessment and Plan Assessment and plan (1) Acute cholecystitis: Status: Acute Assessment and plan: POD #1 s/p laproscopic Cholecyestectomy and umbilical hernia repair. Pain is well controlled. Advance low fat diet as tolerated. Strongly encouraged ambulation and activity OOB AM labs pending (2) BPH (benign prostatic hyperplasia): Status: Chronic (3) SNHL (sensory-neural hearing loss), asymmetrical: Status: Acute (4) Lumbar spondylosis: Status: Acute (5) DDD (degenerative disc disease), lumbar: Status: Acute (6) Hypertension: (7) Osteoarthritis: Subjective Subjective Interval history since last seen: Patient reports that he is feeling very well this morning. Denies having any pain, nausea or vomiting. He also denies having any fevers or chills. Exam Const General: cooperative, healthy appearing and comfortable Orientation: alert and oriented x3 Resp Effort & Inspection: normal respiratory effort, no audible wheezes and no cough GI Palpation: soft, no guarding and nontender Auscultation: normal bowel sounds Other: Skin a fix on all incision sites. No erythema, swelling or induration noted. Objective Last Vital Signs Temp 36.4 C L 03/17/21 08:21 Pulse 63 03/17/21 08:21 Resp 18 03/17/21 08:21 BP 135/71 03/17/21 08:21 Pulse Ox 95 03/17/21 08:21 Laboratory Results - last 24 hr 03/16/21 03/16/21 03/16/21 09:35 09:35 09:35 WBC 15.45 H RBC 4.93 Hgb 14.4 Hct 43.4 MCV 88.0 MCH 29.2 MCHC 33.2 RDW 12.4 Plt Count 270 MPV 9.6 Immature Gran % 0.0 Neutrophils % 88.0 Lymphocytes % 1.0 Atypical Lymphs % 4 Monocytes % 7.0 Eosinophils % 0.0 Basophils % 0.0 Nucleated RBC % 0 Absolute Neutrophils 13.60 H Absolute Lymphocytes 0.77 L Absolute Monocytes 1.08 H Absolute Eosinophils 0.00 Absolute Basophils 0.00 RBC Morphology Normal Sodium 131 L Potassium 3.1 L Chloride 95 L Carbon Dioxide 25.5 Anion Gap 10.5 BUN 11 Creatinine 0.9 Estimated GFR/1.73 m2 >= 60.00 Glucose 121 H Calcium 8.5 Magnesium 2.3 Total Bilirubin 0.9 AST 18 ALT 25 Alkaline Phosphatase 84 Total Protein 7.4 Albumin 3.6 Lipase 03/16/21 03/17/21 09:35 07:30 WBC 13.27 H RBC 4.10 L Hgb 11.9 L D Hct 36.1 L MCV 88.0 MCH 29.0 MCHC 33.0 RDW 12.3 Plt Count 253 MPV 9.6 Immature Gran % 0.5 Neutrophils % 81.1 Lymphocytes % 8.7 Atypical Lymphs % Monocytes % 9.5 Eosinophils % 0.0 Basophils % 0.2 Nucleated RBC % 0 Absolute Neutrophils 10.76 H Absolute Lymphocytes 1.15 L Absolute Monocytes 1.26 H Absolute Eosinophils 0.00 Absolute Basophils 0.03 RBC Morphology Sodium Potassium Chloride Carbon Dioxide Anion Gap BUN Creatinine Estimated GFR/1.73 m2 Glucose Calcium Magnesium Total Bilirubin AST ALT Alkaline Phosphatase Total Protein Albumin Lipase 59
[2021-03-17] MEDS: ACETAMINOPHEN 1,000 MG/100 ML BTL 400 MG IVPB (09:24)
[2021-03-17] MEDS: Enoxaparin 30 MG/0.3 ML SYR SC (09:35)
[2021-03-17] MEDS: Pantoprazole 40 MG VIAL IVP (09:35)
[2021-03-17] MEDS: amLODIPine 5 MG TAB PO (09:35)
[2021-03-17] MEDS: Triamterene 37.5/HCTZ 25 CAP PO (09:35)
[2021-03-17] MEDS: Losartan 50 MG TAB 100 MG PO (11:46)
[2021-03-17 15:30] VITALS: BP 147/68; PULSE 61; RESP 19; TEMP 36.4; O2SAT 95
--- NOTE | 2021-03-17 16:19 | PDOC.CMPRO ---
- If Service Date Differs Date of service: 03/17/21 Time of Service: 16:19 Care Management Progress Note S/O: Navneet was sitting up in bed when CM met with him. He reported that he is feeling great today, and he is relieved that the surgery is behind him. He stated that he has been walking around, and is happy that his diet was advanced so he will have food for lunch instead of clear liquids. Per MD, he will be observed overnight. MARIA E wasn't able to talk to Navneet yesterday, as he was in surgery, so MARIA E discussed his needs today. He reported that he recently sold his home and moved into an apartment with his s/o, Juliette. He is retired from working for [employer], and before that he worked for the [employer]. He is enjoying his penitentiary overall. He is very independent and does not anticipate needing any services. CM will continue to follow. A: Navneet is a 71 year old male admitted to [facility] on 03/16/21 for acute cholecystitis. P: Anticipate Navneet will return home once medically cleared by . He will transport via private vehicle by family, and will follow up with his PCP and discharge plan of care. CM will continue to follow.
[2021-03-17 23:00] VITALS: BP 105/64; PULSE 69; RESP 18; TEMP 36.9; O2SAT 93
[2021-03-18] MEDS: Ketorolac 15 MG/ML VIAL IVP ×2 (04:14→10:22)
[2021-03-18] MEDS: PIPERACILLIN/TAZO 3.375 GM in Normal Saline 50 ML IVPB ×2 (04:14→10:22)
[2021-03-18 06:55] LABS: Abs Immature Grans 0.03 10^3/uL (0.0-0.06); Absolute Basophil Count 0.09 10^3/uL (0.0-0.2); Absolute Lymphocyte Count 2.35 10^3/uL (1.2-3.4); Absolute Monocyte Count 1.12 10^3/uL (0.1-0.8); Absolute Neutrophil Count 5.75 10^3/uL (1.2-6.7); Eosinophils % 1.1; HCT 36.2 % (40.0-50.0); HGB 11.9 g/dL (13.5-17.5); Immature Grans % 0.3; Lymphocytes % 24.9; MCH 29.2 pg (27.0-33.0); MCHC 32.9 % (32.0-36.0); MCV 88.7 fL (80-95); MPV 9.8 fL (8.0-11.0); Monocytes % 11.9; Neutrophils % 60.8; Nucleated RBC 0 %; Platelet Count 256 10^3/uL (130-400); RBC 4.08 10^6/uL (4.36-5.78); RDW 12.6 % (11.8-14.1); RDW-SD 41.2 fL; WBC 9.44 10^3/uL (4.4-10.8)
[2021-03-18] MEDS: amLODIPine 5 MG TAB PO (07:45)
[2021-03-18] MEDS: Triamterene 37.5/HCTZ 25 CAP PO (07:45)
[2021-03-18] MEDS: Losartan 50 MG TAB 100 MG PO (07:45)
[2021-03-18] MEDS: Pantoprazole 40 MG VIAL IVP (07:45)
[2021-03-18] MEDS: Normal Saline Flush 10 ML SYR IVP ×2 (07:45→10:23)
[2021-03-18] MEDS: Enoxaparin 30 MG/0.3 ML SYR SC (07:46)
[2021-03-18 07:54] VITALS: BP 154/77; PULSE 73; RESP 18; TEMP 36.8; O2SAT 93
--- NOTE | 2021-03-18 08:42 | W.PM.PROGNOT ---
Documented by User: JENNIFER Tee 03/18/21 08:44 Date of Service Date of service: 03/18/21 Time of Service: 08:42 Assessment and Plan Assessment and plan (1) Acute cholecystitis: Status: Acute Assessment and plan: POD #2 s/p laproscopic Cholecyestectomy and umbilical hernia repair. Pain is well controlled. Advance low fat diet as tolerated. Strongly encouraged ambulation and activity OOB WBC count has returned to nml Possible d/c home later today. (2) BPH (benign prostatic hyperplasia): Status: Chronic (3) SNHL (sensory-neural hearing loss), asymmetrical: Status: Acute (4) Lumbar spondylosis: Status: Acute (5) DDD (degenerative disc disease), lumbar: Status: Acute (6) Hypertension: (7) Osteoarthritis: Subjective Subjective Interval history since last seen: Patient reports he continues to feel well. No Pain. He states he has been ambulating frequently. Exam Const General: cooperative, healthy appearing and comfortable Orientation: alert and oriented x3 Resp Effort & Inspection: normal respiratory effort, no audible wheezes and no cough GI Palpation: soft, no guarding and nontender Objective Last Vital Signs Temp 36.8 C 03/18/21 07:54 Pulse 73 03/18/21 07:54 Resp 18 03/18/21 07:54 BP 154/77 H 03/18/21 07:54 Pulse Ox 93 03/18/21 07:54 Laboratory Results - last 24 hr 03/18/21 06:40 WBC 9.44 RBC 4.08 L Hgb 11.9 L Hct 36.2 L MCV 88.7 MCH 29.2 MCHC 32.9 RDW 12.6 Plt Count 256 MPV 9.8 Immature Gran % 0.3 Neutrophils % 60.8 Lymphocytes % 24.9 Monocytes % 11.9 Eosinophils % 1.1 Basophils % 1.0 Nucleated RBC % 0 Absolute Neutrophils 5.75 Absolute Lymphocytes 2.35 Absolute Monocytes 1.12 H Absolute Eosinophils 0.10 Absolute Basophils 0.09 Documented by User: Smiley Damon DO 03/18/21 10:24 Assessment and Plan Assessment and plan (1) Acute cholecystitis: Status: Acute Assessment and plan: Patient seen and examined. Agree with above. Discharge today Rx Augmentin and Ultram
--- NOTE | 2021-03-18 10:07 | DSE_ITS ---
Date of service: 03/18/21 Time of Service: 10:07 DS: Diagnosis Discharge Diagnosis (1) Acute cholecystitis: Status: Acute (2) BPH (benign prostatic hyperplasia): Status: Chronic (3) SNHL (sensory-neural hearing loss), asymmetrical: Status: Acute (4) Lumbar spondylosis: Status: Acute (5) DDD (degenerative disc disease), lumbar: Status: Acute (6) Hypertension: (7) Osteoarthritis: Discharge Plan Disposition Patient Disposition: HOME Condition: Improving Discharge Details Reason For Visit: Acute Cholecystitis Admit Date/Time: 03/16/21 02:07 Admit Provider: Miriam Savage Attending Provider: Miriam Savage Primary Care Provider: Ryley Holley Hospital Course Hospital Course: Patient was admitted through the ER on 03/16/2021 with acute cholecystitis. Watson gabriel see H&P for medical details. He underwent cholecystectomy and umbilical hernia repair on 03/16/2021. Please see report for surgical details. His recovery has been uneventful. He was kept in the hospital on IV antibiotics because of the severity of the infection. He had known pneumonias/DVT/urinary tract infections/decubitus ulcers. He has done well with surgery. He is being discharged to home in stable and satisfactory condition. Patient expressed verbal understanding of all instructions. Please see the discharge orders for complete details. Patient was given a follow appointment in surgery clinic. Home Meds and New Rx's Prescriptions: No Action triamterene-hydrochlorothiazid 37.5-25 mg capsule 1 cap PO DAILY RF: 0 fluoride (sodium) [SF 5000 Plus] 1.1 % cream 1 applic dental DAILY RF: 0 amlodipine 5 mg tablet 5 mg PO DAILY RF: 0 losartan 25 mg tablet 100 mg PO QAM RF: 0 meloxicam 15 MG tablet 15 mg PO DAILY PRN PRNRF: 0 Discharge Instructions Additional Instructions: Care after Gallbladder Surgery -Pain control: For the first 72 hours after surgery, take you pain meds co ntinuously and not just when you have pain. Alternate Tylenol 1000mg by mouth every 8 hours, and Ibuprofen 600mg every 6 hours. OR use your meloxicam. Do not take ibuprofen and meloxicam together! Make sure you take ibuprofen with food and not on an empty stomach. Use the tramadol for breakthrough pain- pain that is greater than a 7. - Use ICE! Ice really helps to keep the swelling down, and swelling causes pain. Twenty minutes on, and then off, continuously for the first 72hours. After the first 72hrs, you can just use the Tylenol, ibuprofen or meloxicam and ice, when you have pain. If you are taking narcotic pain medication, follow the instructions on the label and do not drive. Pain medications can make you very constipated. Make sure you are moving your bowels daily. If not, take Miralax, milk of magnesia or magnesium citrate. ? Use an ice bag for the first 72 hours. This helps to decrease swelling, which causes pain. It is normal to be more sore/painful and swollen towards the end of the day and first thing in the morning. ? Use milk of magnesia or prune juice to prevent constipation (this is a particular side effect of pain medication and anesthesia). Do not allow yourself to become constipated. ? Avoid fatty or greasy foods; introduce these slowly, with care, after about 1 month. High-fat foods include: ? Foods that are fried, like [place] fries and potato chips ? High-fat meats, such as philip, bologna, sausage, ground beef, and ribs, pork products ? High-fat dairy products, such as cheese, ice cream, cream, whole milk, and sour cream ? Pizza ? Foods made with lard or butter ? Creamy soups or sauces ? Meat gravies ? Chocolate ? Oils, such as palm and coconut oil ? Skin of chicken or turkey Nuts and nut butters Avacadoes ? Start out eating very small, bland amounts of food. Do not take pain pills on an empty stomach. - You will notice purple discoloration around the incisions. This is the ?skin glue?. This will wear off on its own. It is OK to shower after 24hrs. You do not need to cover the incisions. - -You should walk frequently, gradually, increasing the distance. You may climb stairs, just go slowly. ? Do not go swimming or sit in a hot tub for two weeks. ? There are no stitches to remove. ? Do not drive your car x72hrs and then only if you have no pain and can move freely. Do not drive if you are taking pain narcotic pain medications. ? You may resume sexual activity whenever pain and soreness subside, usually in 2 weeks. ? Do no lift anything over 5 lbs. for two weeks. ? You may return to work in one week, or when you feel able, provided you do not have to do any heavy lifting or prolonged standing. ? You should return to Dr. Damon?s office for a post-op appointment about one week after surgery. Please call the Surgical Clinic at: [phone] to schedule an appointment. My Medications for pain and nausea are: tylenol and ibuprofen OR meloxicam When to Call the Office: ? If the incision becomes red or swollen, or there is more than a little drainage from it. ? If you develop a temperature higher than 100.5 F. ? If your eyes turn yellow ? Vomiting and can?t keep fluids down Stand Alone Forms: Nursing Discharge Form Activity:: see above Equipment/Supplies:: No Equipment Needed Diet:: see above DS: Summary Time Spent with Patient providing and/or coordinating discharge services: Less than 30 minutes Status at Discharge Functional status at discharge: independent ambulation Overall status at discharge: patient is progressing back to baseline Mental Status: mental status grossly normal Speech and Movement: speech and movement normal Mood: congruent mood Affect: normal affect Exam Psych Mental Status: mental status grossly normal Speech and Movement: speech and movement normal Mood: congruent mood Affect: normal affect DS: Data Vitals/I&O Vitals and I&O: Vital Signs Temperature 36.8 C 03/18/21 07:54 Temperature Source Tympanic 03/18/21 07:54 Pulse 73 03/18/21 07:54 Pulse Rhythm Regular 03/18/21 07:30 Respiratory Rate 18 03/18/21 07:54 Respiratory Effort Non-Labored 03/18/21 07:30 Respiratory Depth Normal 03/18/21 07:30 Respiratory Pattern Normal 03/18/21 07:30 Blood Pressure 154/77 H 03/18/21 07:54 Pulse Oximetry 93 03/18/21 07:54 Respiratory End-tidal CO2 31 03/16/21 15:45 Oxygen Delivery Method Room Air 03/18/21 07:54 Oxygen Flow Rate 0 03/18/21 07:54 Pain Level 0 03/18/21 07:54 Intake & Output 03/17/21 03/17/21 03/18/21 11:59 23:59 11:59 Intake Total 2680 / 3670 990 / 3670 340 / 340 Output Total 650 / 650 1150 / 1150 Balance 2030 / 0 990 / 3020 -810 / -810 Weight 95.4 kg 94.12 kg Intake: IV 2310 / 2360 50 / 2360 100 / 100 Oral 370 / 1310 940 / 1310 240 / 240 Output: Urine 650 / 650 1150 / 1150 Other: Urine Color Yellow Yellow Urine Appearance Cloudy Clear Urine Odor Normal Normal Comment pT said he had voided serveral times today. Voiding Methods Urinal Toilet Urinal Data Completed and Pending Labs on day of discharge: Labs from last 24 hours 03/18/21 06:40 WBC 9.44 RBC 4.08 L Hgb 11.9 L Hct 36.2 L MCV 88.7 MCH 29.2 MCHC 32.9 RDW 12.6 Plt Count 256 MPV 9.8 Immature Gran % 0.3 Neutrophils % 60.8 Lymphocytes % 24.9 Monocytes % 11.9 Eosinophils % 1.1 Basophils % 1.0 Nucleated RBC % 0 Absolute Neutrophils 5.75 Absolute Lymphocytes 2.35 Absolute Monocytes 1.12 H Absolute Eosinophils 0.10 Absolute Basophils 0.09 PFSH All Active Problems (Updated 03/16/21 @ 01:48 by Vj Moore MD) Acute cholecystitis (Acute) BPH (benign prostatic hyperplasia) (Chronic) SNHL (sensory-neural hearing loss), asymmetrical (Acute) Lumbar spondylosis (Acute) DDD (degenerative disc disease), lumbar (Acute) Medical History (Updated 03/16/21 @ 01:48 by Vj Moore MD) Hypertension Osteoarthritis Osteoarthritis involving joints of upper arms, bilateral Surgical History (Updated 10/19/20 @ 13:17 by Sarika Rodriguez RN) History of colonoscopy (~12/31/10) Social History Smoking/Tobacco Use Status: Never Smoking risk assessment performed?: Yes Drug use: Never Do you feel safe at home: Yes Do you feel safe in your relationship?: Yes
--- NOTE | 2021-03-18 10:56 | W.PM.DS.N ---
DS: Diagnosis Discharge Diagnosis (1) Acute cholecystitis: Status: Acute Discharge Plan Disposition Patient Disposition: HOME Condition: Improving Discharge Details Reason For Visit: Acute Cholecystitis Admit Date/Time: 03/16/21 02:07 Admit Provider: Miriam Savage Attending Provider: Miriam Savage Primary Care Provider: Ryley Holley Hospital Course Hospital Course: Patient was admitted through the ER on 03/16/2021 with acute cholecystitis. Please see H&P for medical details. He underwent cholecystectomy and umbilical hernia repair on 03/16/2021. Please see report for surgical details. His recovery has been uneventful. He was kept in the hospital on IV antibiotics because of the severity of the infection. He had known pneumonias/DVT/urinary tract infections/decubitus ulcers. He has done well with surgery. He is being discharged to home in stable and satisfactory condition. Patient expressed verbal understanding of all instructions. Please see the discharge orders for complete details. Patient was given a follow appointment in surgery clinic. Home Meds and New Rx's Prescriptions: New amoxicillin-pot clavulanate [Augmentin] 875-125 mg tablet 1 tab PO Q12H 5 Days Qty: 10 RF: 0 Bio-K plus 50 billion cell capsule,delayed release(DR/EC) 1 cap PO DAILY Qty: 30 RF: 0 tramadol [Ultram] 50 mg tablet 50 mg PO Q6H PRNQty: 7 RF: 0 Continued triamterene-hydrochlorothiazid 37.5-25 mg capsule 1 cap PO DAILY RF: 0 fluoride (sodium) [SF 5000 Plus] 1.1 % cream 1 applic dental DAILY RF: 0 amlodipine 5 mg tablet 5 mg PO DAILY RF: 0 losartan 25 mg tablet 100 mg PO QAM RF: 0 meloxicam 15 MG tablet 15 mg PO DAILY PRN PRNRF: 0 Discharge Instructions Instructions: Low Fat Diet (DC) Additional Instructions: Care after Gallbladder Surgery -Pain control: For the first 72 hours after surgery, take you pain meds continuously and not just when you have pain. Alternate Tylenol 1000mg by mouth every 8 hours, and Ibuprofen 600mg every 6 hours. OR use your meloxicam. Do not take ibuprofen and meloxicam together! Make sure you take ibuprofen with food and not on an empty stomach. Use the tramadol for breakthrough pain- pain that is greater than a 7. - Use ICE! Ice really helps to keep the swelling down, and swelling causes pain. Twenty minutes on, and then off, continuously for the first 72hours. After the first 72hrs, you can just use the Tylenol, ibuprofen or meloxicam and ice, when you have pain. If you are taking narcotic pain medication, follow the instructions on the label and do not drive. Pain medications can make you very constipated. Make sure you are moving your bowels daily. If not, take Miralax, milk of magnesia or magnesium citrate. ? Use an ice bag for the first 72 hours. This helps to decrease swelling, which causes pain. It is normal to be more sore/painful and swollen towards the end of the day and first thing in the morning. ? Use milk of magnesia or prune juice to prevent constipation (this is a particular side effect of pain medication and anesthesia). Do not allow yourself to become constipated. ? Avoid fatty or greasy foods; introduce these slowly, with care, after about 1 month. High-fat foods include: ? Foods that are fried, like [place] fries and potato chips ? High-fat meats, such as philip, bologna, sausage, ground beef, and ribs, pork products ? High-fat dairy products, such as cheese, ice cream, cream, whole milk, and sour cream ? Pizza ? Foods made with lard or butter ? Creamy soups or sauces ? Meat gravies ? Chocolate ? Oils, such as palm and coconut oil ? Skin of chicken or turkey Nuts and nut butters [place]adoes ? Start out eating very small, bland amounts of food. Do not take pain pills on an empty stomach. - You will notice purple discoloration around the incisions. This is the ?skin glue?. This will wear off on its own. It is OK to shower after 24hrs. You do not need to cover the incisions. - -You should walk frequently, gradually, increasing the distance. You may climb stairs, just go slowly. ? Do not go swimming or sit in a hot tub for two weeks. ? There are no stitches to remove. ? Do not drive your car x72hrs and then only if you have no pain and can move freely. Do not drive if you are taking pain narcotic pain medications. ? You may resume sexual activity whenever pain and soreness subside, usually in 2 weeks. ? Do no lift anything over 5 lbs. for two weeks. ? You may return to work in one week, or when you feel able, provided you do not have to do any heavy lifting or prolonged standing. ? You should return to Dr. Damon?s office for a post-op appointment about one week after surgery. Please call the Surgical Clinic at: [phone] to schedule an appointment. My Medications for pain and nausea are: tylenol and ibuprofen OR meloxicam When to Call the Office: ? If the incision becomes red or swollen, or there is more than a little drainage from it. ? If you develop a temperature higher than 100.5 F. ? If your eyes turn yellow ? Vomiting and can?t keep fluids down Stand Alone Forms: Nursing Discharge Form Referrals: Simley Damon DO [OSTEOPATHIC DOCTOR] - 03/25/21 1:30 pm Activity:: see above Equipment/Supplies:: No Equipment Needed Diet:: see above DS: Summary Time Spent with Patient providing and/or coordinating discharge services: Less than 30 minutes Status at Discharge Functional status at discharge: independent ambulation Overall status at discharge: patient is progressing back to baseline Mental Status: mental status grossly normal Speech and Movement: speech and movement normal Mood: congruent mood Affect: normal affect Exam Psych Mental Status: mental status grossly normal Speech and Movement: speech and movement normal Mood: congruent mood Affect: normal affect DS: Data Vitals/I&O Vitals and I&O: Vital Signs Temperature 36.8 C 03/18/21 07:54 Temperature Source Tympanic 03/18/21 07:54 Pulse 73 03/18/21 07:54 Pulse Rhythm Regular 03/18/21 07:30 Respiratory Rate 18 03/18/21 07:54 Respiratory Effort Non-Labored 03/18/21 07:30 Respiratory Depth Normal 03/18/21 07:30 Respiratory Pattern Normal 03/18/21 07:30 Blood Pressure 154/77 H 03/18/21 07:54 Pulse Oximetry 93 03/18/21 07:54 Respiratory End-tidal CO2 31 03/16/21 15:45 Oxygen Delivery Method Room Air 03/18/21 07:54 Oxygen Flow Rate 0 03/18/21 07:54 Pain Level 0 03/18/21 10:22 Intake & Output 03/17/21 03/17/21 03/18/21 11:59 23:59 11:59 Intake Total 2680 / 3670 990 / 3670 340 / 340 Output Total 650 / 650 1150 / 1150 Balance 2030 / 3020 990 / 3020 -810 / -810 Weight 95.4 kg 94.12 kg Intake: IV 2310 / 2360 50 / 2360 100 / 100 Oral 370 / 1310 940 / 1310 240 / 240 Output: Urine 650 / 650 1150 / 1150 Other: Urine Color Yellow Yellow Urine Appearance Cloudy Clear Urine Odor Normal Normal Comment pT said he had voided serveral times today. Voiding Methods Urinal Toilet Urinal Data Completed and Pending Labs on day of discharge: Labs from last 24 hours 03/18/21 06:40 WBC 9.44 RBC 4.08 L Hgb 11.9 L Hct 36.2 L MCV 88.7 MCH 29.2 MCHC 32.9 RDW 12.6 Plt Count 256 MPV 9.8 Immature Gran % 0.3 Neutrophils % 60.8 Lymphocytes % 24.9 Monocytes % 11.9 Eosinophils % 1.1 Basophils % 1.0 Nucleated RBC % 0 Absolute Neutrophils 5.75 Absolute Lymphocytes 2.35 Absolute Monocytes 1.12 H Absolute Eosinophils 0.10 Absolute Basophils 0.09 PFSH All Active Problems (Updated 03/16/21 @ 01:48 by Vj Moore MD) Acute cholecystitis (Acute) BPH (benign prostatic hyperplasia) (Chronic) SNHL (sensory-neural hearing loss), asymmetrical (Acute) Lumbar spondylosis (Acute) DDD (degenerative disc disease), lumbar (Acute) Medical History (Updated 03/16/21 @ 01:48 by Vj Moore MD) Hypertension Osteoarthritis Osteoarthritis involving joints of upper arms, bilateral Surgical History (Updated 10/19/20 @ 13:17 by Sarika Rodriguez RN) History of colonoscopy (~12/31/10) Social History Smoking/Tobacco Use Status: Never Smoking risk assessment performed?: Yes Drug use: Never Do you feel safe at home: Yes Do you feel safe in your relationship?: Yes
--- NOTE | 2021-03-18 15:32 | PDOC.CMDIS ---
- If Service Date Differs Date of service: 03/18/21 Time of Service: 15:32 LACE Index Scoring Tool - Questions: Length of Stay (in days): 2 Acuity (Admit via E.D.?): Yes E.D. Visits: 1 - Answers: Total Score: 6 Risk of Readmission: Low Risk Care Management Discharge Reason for Hospitalization: acute cholecystitis Discharge Plan: Navneet returned home today with no new services. His s/o, Juliette drove him home via private vehicle. He will follow up with his PCP and discharge plan of care. He was happy to be going home. Patient/Family Education Needs: Review discharge instructions and limitations, discussion of self care needs including ask me three.
== END 2021-03-18 13:26 | disposition home or self-care (01) ==
LOC: ER 03-16 07:06 → MS 03-16 07:19
PROVIDERS: Surgery; Admitting Provider Surgery; Emergency Provider Emergency Medicine; PCP Family Medicine; Visit Provider Surgery
PROC: 0FT44ZZ Resection of Gallbladder, Percutaneous Endoscopic Approach (ICD-10-PCS; CPT 47562; principal; 2021-03-16 12:30)
DX: K80.00 Calculus of gallbladder with acute cholecystitis without obstruction (principal); K82.A1 Gangrene of gallbladder in cholecystitis; K42.9 Umbilical hernia without obstruction or gangrene; N40.0 Benign prostatic hyperplasia without lower urinary tract symptoms; M51.36 Other intervertebral disc degeneration, lumbar region; M47.816 Spondylosis without myelopathy or radiculopathy, lumbar region; Z20.822 Contact with and (suspected) exposure to COVID-19; I10 Essential (primary) hypertension
CPT/HCPCS: 47562; 49652; 36415; 80053; 83690; 87635; 93005; 96361; 96365; 96375; 96376; 99219; 99285; 74177; 76705; 82248; 83735; 84484; 85025; 88304; 93010; G0378; J0131; J1100; J1650; J1885; J2001; J2250; J2405; J2543; J3490

== ENCOUNTER → 2021-03-22 09:27 | Outpatient (BNVA) | payer OTHER, MEDICAID, SELFPAY | PROVIDERS: PCP Family Medicine; Referring Provider Family Medicine; Visit Provider Student in an Organized Health Care Education/Training Program | DX: M16.11 Unilateral primary osteoarthritis, right hip (principal) | CPT/HCPCS: 99214 ==

== ENCOUNTER → 2021-03-25 13:17 | Outpatient (BNVA) | payer OTHER, MEDICAID, SELFPAY | PROVIDERS: PCP Family Medicine; Referring Provider Family Medicine; Visit Provider Surgery | DX: Z48.815 Encounter for surgical aftercare following surgery on the digestive system (principal); Z90.49 Acquired absence of other specified parts of digestive tract ==

== ENCOUNTER 2021-04-29 11:06 | Outpatient (CLI) | payer OTHER, MEDICAID, SELFPAY ==
--- NOTE | 2021-04-29 11:00 | DI.RAD_ITS ---
Exam(s) XR PELVIS AP EXAM: XR PELVIS AP CLINICAL HISTORY: preop. TECHNIQUE: 2D digital imaging was performed. COMPARISON: CR XR HIP RT COMPLETE AP PELVIS from 01/08/[address] ABDOMEN PELVIS W from 03/16/2021 FINDINGS: There is moderate to severe narrowing of the right superior hip joint space, worsening when compared the previous exam. There has been interval worsening of the flattening of the superior right femoral head and increasing lucency at the femoral head. The left hip shows stable mild degenerative change s. IMPRESSION: Worsening of degenerative changes and flattening of the right femoral head when compared with the pre vious exam. DATA REPOSITORY: RADIATION DOSE DELIVERED:
== END 2021-04-29 11:07 | disposition home or self-care (01) ==
LOC: DIORS 11:06
PROVIDERS: PCP Family Medicine; Referring Provider Family Medicine; Visit Provider Physician Assistant Surgical
DX: M16.11 Unilateral primary osteoarthritis, right hip (principal); Z01.818 Encounter for other preprocedural examination
CPT/HCPCS: 72170

== ENCOUNTER 2021-05-10 01:12 | Outpatient (CLI) | payer OTHER, MEDICAID, SELFPAY ==
[2021-05-10 10:02] LABS: HCT 43.7 % (40.0-50.0); HGB 14.2 g/dL (13.5-17.5); MCH 28.7 pg (27.0-33.0); MCHC 32.5 % (32.0-36.0); MCV 88.5 fL (80-95); MPV 9.3 fL (8.0-11.0); Platelet Count 331 10^3/uL (130-400); RBC 4.94 10^6/uL (4.36-5.78); RDW 12.8 % (11.8-14.1); WBC 9.34 10^3/uL (4.4-10.8)
[2021-05-10 10:54] LABS: Anion Gap 9.5 mmol/L (3-11); BUN 19 mg/dL (7-18); CO2 26.5 mmol/L (21.0-32.0); CREATININE 0.8 mg/dL (0.70-1.30); Calcium 9.3 mg/dL (8.5-10.1); Chloride 99 mmol/L (98-107); Glucose 101 mg/dL (74-106); Potassium 4.1 mmol/L (3.5-5.1); Sodium 135 mmol/L (136-145)
== END 2021-05-10 01:13 | disposition home or self-care (01) ==
LOC: LBO 01:12
PROVIDERS: PCP Family Medicine; Visit Provider Student in an Organized Health Care Education/Training Program
DX: M25.551 Pain in right hip (principal); M16.11 Unilateral primary osteoarthritis, right hip; Z01.818 Encounter for other preprocedural examination; Z01.812 Encounter for preprocedural laboratory examination
CPT/HCPCS: 36415; 80048; 85027; 86850; 86900; 86901

== ENCOUNTER 2021-05-10 01:29 | Outpatient (CLI) | payer OTHER, MEDICAID, SELFPAY ==
[2021-05-10 12:43] LABS: Source Nasal/Nares
[2021-05-10 22:31] LABS: COVID-19 PCR Negative (Negative)
== END 2021-05-10 01:30 | disposition home or self-care (01) ==
LOC: LBO 01:29
PROVIDERS: PCP Family Medicine; Visit Provider Student in an Organized Health Care Education/Training Program
DX: Z20.822 Contact with and (suspected) exposure to COVID-19 (principal); Z01.818 Encounter for other preprocedural examination
CPT/HCPCS: 87635; U0005

== ENCOUNTER 2021-05-11 06:04 | Day surgery (SDC) | payer OTHER, MEDICAID, SELFPAY ==
[2021-05-11] VITALS (10 sets, daily range): BP systolic 54–154; BP diastolic 27–92; PULSE 43–82; RESP 14–23; TEMP 36.2–36.6; O2SAT 87–98; BMI 27.1
--- NOTE | 2021-05-11 06:43 | W.ANESPRE ---
General Info Date of Service Date Performed: 05/11/21 Height: 6 ft Weight: 90.6 kg Body Mass Index (BMI): 27.1 Surgical Procedure: Operation Date: 05/11/21 07:50 Proposed Procedure Side Surgeon p Hip Total Hip Anterior Right Wesly Hooks MD Meds Allergies and Home Medications Allergies Allergy/AdvReac Type Severity Reaction Status Date / Time lisinopril AdvReac Unknown Verified 05/11/21 06:19 Home Medication Medication Instructions Recorded fluoride (sodium) 1.1 % dental 1 applic DENTAL DAILY 10/19/20 cream (SF 5000 Plus) losartan 25 mg tablet 100 mg PO HS tab 10/19/20 triamterene 37.5 1 cap PO DAILY 10/19/20 mg-hydrochlorothiazide 25 mg capsule amlodipine 5 mg tablet 5 mg PO HS 03/22/21 acetaminophen 500 mg tablet 500 mg PO Q6H PRN PRN #90 tab 05/11/21 aspirin 81 mg tablet,delayed 81 mg PO BID #60 tab 05/11/21 release celecoxib 200 mg capsule 200 mg PO BID PRN #60 cap 05/11/21 diphenhydramine 25 2 tab PO QHS PRN 05/11/21 mg-acetaminophen 500 mg tablet (Tylenol PM Extra Strength) docusate sodium 100 mg capsule 100 mg PO BID PRN #6 cap 05/11/21 (Colace) oxycodone 5 mg tablet 5 mg PO Q4H #12 tab 05/11/21 pantoprazole 40 mg tablet,delayed 40 mg PO DAILY #30 tab 05/11/21 release Current Visit Medications: Current Medications Generic Name Dose Route Start Last Admin Trade Name Treva PRN Reason Stop Dose Admin Acetaminophen 1,000 mg 05/11/21 06:00 Acetaminophen 500 Mg Tab PO 05/11/21 16:00 PREOP TERRA Celecoxib 400 mg 05/11/21 06:00 Celecoxib 200 Mg Cap PO 05/11/21 16:00 PREOP TERRA Tranexamic Acid 1,000 mg/ 60 mls @ 360 mls/hr 05/11/21 06:00 Sodium Chloride IV 05/11/21 16:00 PREOP TERRA Ringer's Solution 1,000 mls @ 80 mls/hr 05/11/21 06:00 IV 06/09/21 23:59 [facility] Cefazolin Sodium/Dextrose 2 gm in 50 mls @ 100 mls/hr 05/11/21 06:00 Ancef Duplex IVPB 05/11/21 16:00 PREOP TERRA IV Miscellaneous Supplies 1 each 05/11/21 06:00 Iv Access IV 06/09/21 23:59 DIRECTED TERRA Sodium Chloride 0 ml 05/11/21 06:00 Normal Saline Flush 10 Ml Syr IV 06/09/21 23:59 PRN PRN Sodium Chloride 0 ml 05/11/21 06:00 Normal Saline 10 Ml Vial IJ 06/09/21 23:59 DIRECTED PRN Sterile Water 0 ml 05/11/21 06:00 Water,Injection,Sterile 10 Ml Vial IJ 06/09/21 23:59 DIRECTED PRN PFSH Active Problems Active Problems: Problem Status Onset Code DDD (degenerative disc disease), lumbar M51.36 Lumbar spondylosis M47.816 SNHL (sensory-neural hearing loss), asymmetrical H90.3 BPH (benign prostatic hyperplasia) N40.0 Osteoarthritis of right hip M16.11 Medical History Medical History Acute cholecystitis Hypertension Osteoarthritis Osteoarthritis involving joints of upper arms, bilateral Surgical History Surgical History History of colonoscopy (~12/31/10) Hx laparoscopic cholecystectomy Tobacco Smoking/Tobacco Use Status: Never Alcohol Alcohol Intake: current Alcohol intake frequency: a few times a week Substance Use Substance use: Never Substance use type: does not use Vital Signs and Lab Results Vital Signs Most Recent Vital Signs in EMR: Most Recent Vital Signs Temp Pulse Resp BP Pulse Ox 36.6 C 79 16 153/85 H 98 05/11/21 06:25 05/11/21 06:25 05/11/21 06:25 05/11/21 06:25 05/11/21 06:25 Lab Results Blood Type / Crossmatch: Patient ABO/Rh O Positive 05/10/21 Antibody Screen NEGATIVE 05/10/21 Complete Blood Count: White Blood Count 9.34 10^3/uL (4.4-10.8) 05/10/21 09:57 05/10/21 Red Blood Count 4.94 10^6/uL (4.36-5.78) 05/10/21 09:57 05/10/21 Hemoglobin 14.2 g/dL (13.5-17.5) 05/10/21 09:57 05/10/21 Hematocrit 43.7 % (40.0-50.0) 05/10/21 09:57 05/10/21 Platelet Count 331 10^3/uL (130-400) 05/10/21 09:57 05/10/21 Complete Metabolic Panel: Sodium Level 135 mmol/L (136-145) L 05/10/21 09:57 05/10/21 Potassium Level 4.1 mmol/L (3.5-5.1) 05/10/21 09:57 05/10/21 Chloride Level 99 mmol/L (98-107) 05/10/21 09:57 05/10/21 Carbon Dioxide Level 26.5 mmol/L (21.0-32.0) 05/10/21 09:57 05/10/21 Blood Urea Nitrogen 19 mg/dL (7-18) H 05/10/21 09:57 05/10/21 Creatinine 0.8 mg/dL (0.70-1.30) 05/10/21 09:57 05/10/21 Estimated GFR/1.73 m2 >= 60.00 (mL/min/1.73m2) 05/10/21 09:57 05/10/21 Calcium Level 9.3 mg/dL (8.5-10.1) 05/10/21 09:57 05/10/21 Glucose Level 101 mg/dL (74-106) 05/10/21 09:57 05/10/21 Liver Function Panel: No Data to Display Coagulation Panel: No Data to Display Cardiac Panel: No Data to Display Arterial Blood Gas: No Data to Display Venous Blood Gas: No Data to Display Pancreas Panel: No Data to Display Thyroid Panel: No Data to Display Infectious Disease: Coronavirus (COVID-19)(PCR) Negative (Negative) 05/10/21 10:02 05/10/21 Coronavirus 2019 Source Nasal/Nares 05/10/21 10:02 05/10/21 Blood Cultures: No Data to Display Toxicology Panel: No Data to Display Imaging and Studies Imaging and Studies Study information below may be from another EMR and interpreted by another provider. Please see original notes in EMR for more complete details. EKG Summary: DATE/TIME OF SERVICE: 03/16/21 0039 Exam: Resting ECG Reason for Exam: epigastric pain HR:70 bpm ECG Measurements Heart Rate [address] 178 P 52 QRSd 110 QRS 26 QT 426 T28 QTc 462 Conclusion Sinus rhythm...normal P axis, V-rate 60- 99 Anesthesia Assessment and Plan Anesthesia History Personal History: No History of Anesthesia Complications Family History: No Family History of Anesthesia Complications Exercise Tolerance Exercise Tolerance: Metabolic Equivalents>4 Pertinent Negatives Pertinent Negatives: No Symptoms of GERD, No Major Cardiovascular Symptoms or Complaints, No Major Pulmonary Symptoms or Complaints and No History of CVA/TIA Cardiac & Pulmonary Exam Cardiac Exam: Normal S1/S2 Heart Sounds Pulmonary Exam: Clear Bilateral Breath Sounds Implantable Cardiac Device Does patient have a Pacemaker or an ICD?: No Airway Exam Known Difficult Airway: No Mallampati Class: 1 Mouth Opening: Normal (> 3cm) Thyromental Distance: Greater than 3 cm Neck Range of Motion: Full ROM Neck Circumference: Thick Teeth Condition: Normal Dentition and Other (Patient reports several teeth having been pulled. Indicates posterior molars. ) ASA Classification ASA Score: ASA 2 Emergency Case?: No NPO Status NPO Status: NPO Clears >2 hours, Solids >8 hours Anesthesia Plan Resuscitation Status: Full Code Anesthesia Technique: Spinal Anesthesia Airway Planned: Natural Airway Monitors Used: Standard Monitors
[2021-05-11] MEDS: Lactated Ringers 1,000 ML 80 ML IV (06:56)
[2021-05-11] MEDS: Celecoxib 200 MG CAP 400 MG PO (06:56)
[2021-05-11] MEDS: Acetaminophen 500 MG TAB 1000 MG PO (06:56)
--- NOTE | 2021-05-11 06:57 | DI.RAD_ITS ---
Exam(s) XR HIP RT IN OR EXAM: XR HIP RT IN OR CLINICAL HISTORY: Osteoarthritis of right hip. TECHNIQUE: 2D and realtime digital imaging was performed. Two hard copy images COMPARISON: No exams were available for comparison FINDINGS: Hard copy images show placement of a right hip prosthesis. The alignment appears satisfactory. Please see procedure note for details. Fluoro time 38.8 seconds RADIATION DOSE DELIVERED: Ka,r=5.58 mGy
--- NOTE | 2021-05-11 07:07 | PDOC.DSDIS_ITS ---
Discharge Plan Disposition Patient Disposition: HOME Condition: Good Discharge Details Reason For Visit: Right Hip DJD Attending Provider: Wesly Hooks Primary Care Provider: Ryley Holley Home Meds and New Rx's Prescriptions: New acetaminophen 500 mg tablet 500 mg PO Q6H PRN PRN (Reason: pain) Qty: 90 3RF aspirin 81 mg tablet,delayed release (DR/EC) 81 mg PO BID Qty: 60 0RF celecoxib 200 mg capsule 200 mg PO BID PRN (Reason: pain) Qty: 60 1RF docusate sodium [Colace] 100 mg capsule 100 mg PO BID PRNQty: 6 0RF oxycodone 5 mg tablet 5 mg PO Q4H Qty: 12 0RF pantoprazole 40 mg tablet,delayed release (DR/EC) 40 mg PO DAILY Qty: 30 0RF Continued amlodipine 5 mg tablet 5 mg PO HS 0RF triamterene-hydrochlorothiazid 37.5-25 mg capsule 1 cap PO DAILY 0RF fluoride (sodium) [SF 5000 Plus] 1.1 % cream 1 applic dental DAILY 0RF losartan 25 mg tablet 100 mg PO HS 0RF diphenhydramine-acetaminophen [Tylenol PM Extra Strength] 25-500 mg Tablet 2 tab PO QHS PRN0RF Discontinued tramadol 50 mg tablet 50 - 100 mg PO QHS PRN (Reason: pain) Qty: 36 0RF meloxicam 15 MG tablet 15 mg PO DAILY PRN PRN0RF acetaminophen [Tylenol Arthritis] 650 mg Tablet Extended Release 650 mg PO Q8H PRN0RF Discharge Instructions Additional Instructions: Total Hip Discharge Instructions Activity: The most important activity is to walk. You should try to take short walks a few times a day. You have no restrictions on movement or positioning, but do not try to force what you do. You will find some stiffness and weakness with hip flexion (lifting your knee). Do not try to strengthen this too early, continue to practice walking and stairs and this will come. - Outpatient physical therapy can be helpful to help return you to a normal gait and improve your flexibility and strength. This can start around 2 weeks. For some patients, it?s not necessary. Usually this is determined at the time of discharge or at the first post-operative visit. - You should wear the YARA hose on both legs for 2 weeks. Dressing: Keep the surgical dressing in place for at least one week. After the first week it may be removed and replace with light gauze and tape or nothing. It may get wet after 3 days but avoid soaking the dressing. Most prefer to cover with some ClingWrap (SaranWrap). If the wound gets wet, just lightly pat dry. It is important to make sure the incision does not fold onto itself by keeping the dressing adherent to the skin or placing some gauze in the folds. Medications: - You should take Tylenol and an anti-inflammatory Celebrex as your primary pain control medications. If the Celebrex is too expensive or not covered, please call the office for another alternative (Advil/Ibuprofen or Naproxen/Aleve). - You have been prescribed a stronger pain medication Oxycodone for breakthrough pain, take as needed as prescribed. - You have also been prescribed a stomach acid reduction agent Pantoprozole to help reduce stomach acid and reflux. - You will be taking Aspirin 81mg twice a day for DVT prevention unless instructed otherwise. - If you have constipation you should take Colace or Miralax (both [id number]). It takes most people 3-4 days to have a bowel movement. Follow-up: 2 weeks If you have any acute concerns or questions, please do not hesitate to contact the office at [phone]. You may contact Dr. Hooks with any questions after hours through the hospital at [phone] or on his cell phone at [phone]. Referrals: Wesly Hooks MD [ [facility] STAFF PHYSICIAN] - Equipment/Supplies: Walker Activity:: Activity as Tolerated Shower/Bathe:: 72 hours Diet:: As Tolerated Discharge Orders Discharge Orders: Discharge Order (Routine); Ordered 05/11/21 Ordered By: Wesly Hooks DS: Diagnosis Discharge Diagnosis (1) Osteoarthritis of right hip: Status: Acute
[2021-05-11] MEDS: ceFAZolin 2 GM/50 ML BAG IVPB (07:34)
[2021-05-11] MEDS: Ketorolac 30 MG/ML VIAL (08:45)
[2021-05-11] MEDS: Bupivacaine 0.25% Pres-Free 30 ML VIAL (08:45)
--- NOTE | 2021-05-11 08:56 | ROE_ITS ---
Operative Note Operative Note DATE OF PROCEDURE: 05/11/21 PRE-OP DIAGNOSIS: Right Hip Osteoarthritis POST-OP DIAGNOSIS: same PROCEDURE: Right Anterior Total Hip Arthroplasty with Intraoperative Navigation SURGEON: Wesly Hooks SNOW REMOVAL SUPERVISOR: Soledad Ross ANESTHESIA TYPE: Spinal Refer to Anesthesia Record ESTIMATED BLOOD LOSS: 300 PATHOLOGY: none sent COMPLICATIONS: None Patient was transported to: PACU Patient's condition: stable Implants: 1. Depuy Wales Acetabular Component, 54mm 2. Depuy Acetabular Liner, 37t44ht 3. Depuy Corail Standard Collared Femoral Stem, Size 14 4. Depuy Altrx Ceramic Femoral Head, Size 36+1.5mm Indications: I have seen Alcon in clinic for symptoms of hip arthritis with collapse, confirmed with radiographic findings. He has exhausted nonoperative methods and was having significant limitations in daily function and desired better function and less pain. I discussed the technical details of a hip replacement. I explained the risks of the procedure to include, but not limited to, bleeding, infection, pain, stiffness, fracture, damage to nerves and vessels, damage to muscles and tendons, loosening, instability, leg length inequality, need for repeat procedure, blood clot and cardiopulmonary demise. Despite these risks, Alcon elected to proceed. Findings: There was significant signs of arthritis throughout the hip with a free flap of cartilage of the superior femoral head and a large area of soft subchondral bone. There were also a few loose bodies within the central acetabulum. Procedure Description: Alcon was greeted in the preoperative holding area where the correct side was identified and marked. The consent was reviewed with the patient and signed. The history and physical was updated. All questions were answered. He was taken back to the operating room. A spinal anesthestic was then administered. The feet were wrapped with cast padding and Coban and then placed into the boot liners and then into the boots. Care was taken to protect the skin and make sure the heels were fully down and the boots were stable. The patient was then positioned onto the HANA table. Both legs were held in a neutral position. SCDs were applied. The patient was then slid down onto a peroneal post. Prophylactic antibiotics in the form of Cefazolin were administered. 1g of Tranxemic Acid was given intravenously within 30 minutes of incision. The right leg was then prepped with Chloraprep and draped in a standard fashion. A second prep with Chloraprep was performed prior to placement of a shower-curtain type drape with Iodine impregnated skin protection. A timeout to confirm correct identity, side and site, procedure, allergies, anesthesia, and medical concerns was performed. An obliquely oriented incision was made starting lateral to the ASIS and running distal over the Tensor Fascia Amalia (TFL) muscle belly toward the fibular head, approximately 10cm. The skin and soft tissue was dissected sharply, through Lou?s fascia, and to the fascia of the TFL. With the fascia and superior border of the IT band identified, the fascia was incised with a new knife just above any perforators from the IT band. The TFL muscle belly was bluntly dissec nola away from the fascia and moved laterally. The fat between TFL and rectus was identified to ensure the dissection was not within the TFL. Blunt dissection created space between abductors and the capsule and retractor was placed over the lateral femoral neck. The fibers of the rectus femoris tendon were identified and these were freed from the anterior capsule. A second cobra retractor was placed around the medial femoral neck. The TFL was further retracted laterally to show the deep fascia. Careful dissection through this layer identified three main crossing vessels of the lateral femoral circumflex. These were cauterized in multiple locations and then cut without any noticeable bleeding. The TFL was further released bluntly from the deep fascia to expose anterior hip capsule and fat The Fox orthopaedic retractor was then placed beneath the TFL and against sartorius and medial soft tissues to protect and retract the soft tissues. A T-capsulotomy was then performed starting at the superior lateral acetabulum and moving distally to the intertrochanteric ridge. These capsular flaps were tagged with a No. 1 Ethibond and elevated from within. The capsular flaps were released to the shoulder of the lateral neck and to the lesser trochanter to give excellent visualization of the proximal femur. A neck osteotomy was performed using an oscillating saw based on preoperative templates. This cut started in the shoulder and of the lateral neck and exited medially. The saw was at all times directed medially to avoid injury to the greater trochanter. Gross traction was applied to the leg and the osteotomy opened. The femoral head was removed with a corkscrew, making sure to protect the TFL on its exit. There was a loose chondral flap superiorly on the head wi th soft and pathologic bone underlying it, likely from osteonecrosis. Traction was released after head removal. This was measured on the back table to determine the starting reamer size. Portions of the rectus obscuring visualization were minimally elevated off the superior acetabulum. An anterior retractor was placed over the anterior wall between capsule and labrum and attached to the Gripper retraction system. The femur was rotated to 90 degrees and medial capsule was fully released until the lesser trochanter was palpable and visible; the femur was returned to 30 degrees. A posterior retractor was placed similarly between capsule and labrum. This provided excellent visualization. The contents of the cotyloid fossa were removed with electrocautery and the labrum was removed with a knife. There was a notable floor osteophyte. Acetabular reaming began with a 50mm reamer. This first reaming was directed anterior to posterior and medial to get down to the true floor. This was inspected and reamed until the true floor was reached. The anterior retractor was then released and entry and exit was provided by traction on the capsular flaps. I then reamed sequentially up to a 54mm reamer where good fit was obtained. The larger reamers were oriented based on anatomical reference of the anterior and lateral teague to ensure proper abduction and anteversion. Positioning and size was confirmed with the fluoroscopy. A 54mm Depuy Wales acetabular component was selected. The deep tissues were irrigated. The acetabular component was then impacted in a position of about 40-45 degrees of abduction and 15-20 degrees of anteversion, using the patient?s anatomy as the ultimate landmark. Fluoroscopy was used to confirm this. There was excellent campus safety officer of the acetabular component and the inserting handle was removed. The acetabular liner, Depuy 30p16sm polyethylene liner, was inserted and lined up with the tines of the acetabular component. There was no soft tissue interposition. The liner was then impacted into position and confirmed to be well-seated. A portion of the juaquin-articular cocktail was then injected around the acetabulum into the capsule and periosteum. This cocktail consisted of 50cc of 0.25% Bupivicaine and 20cc of Exparel and 30mg of Ketorolac. The leg was rotated to 120 degrees. Any remaining medial capsule was released until the lesser trochanter was easily palpable. A retractor was placed medially. The lateral capsule was further released into the shoulder to allow access to the greater trochanter. A [place] retractor was placed over the greater trochanter which allowed the trochanter to flip in front of the capsule for excellent exposure. The leg was brought down into maximal extension and 20 degrees of adduction while ensuring there was no impingement on the acetabulum. Any remnant capsule within the trochanter was released. There was excellent access to the proximal femur. The lateral neck remnant was removed with a rongeur. A blunt canal probe was used to identify the canal and trajectory for later broaching. A box osteotome initiated the broach course. A small curved rasp and a curved curette were used to work laterally. Broaching then began with a size 8 Corail broach. This was inserted manually around the trochanter and into the canal before mallet blows. The broach was seated to a few millimeters below the cut level based on the neck cut and the preoperative template. Sequential broaching was continued with the Enel [id number]-[id number] pneumatic broaching device until a tight fit was obtained with good rotational control of the femur. A trial standard neck was inserted along with a +1.5 trial head. The leg was brought out of extension and adduction and then reduced with traction and internal rotation. The leg was stable anteriorly in a position of 30 degrees of extension and 90 degrees of external rotation. Fluoroscopy was used to ensure there was no fracture and the stem was seated well. Leg lengths were checked with an AP pelvis and pelvic reference points. [employer] navigation system was used to confirm appropriate positioning and leg length and offset. This accurately recreated offset but overlengthened by a few milimeters. Therefore, I planned to advance the broach 2-3 mm. Once content with the desired offset and leg lengths, the leg was brought back into extension , external rotation and adduction. The periosteum and surrounding tissue was injected with remaining portion of the juaquin-articular cocktail. The proximal femur was irrigated as well as the deep tissues. The Depuy Corail standard collared stem, size 14, was then manually inserted into the proximal femur making sure to control rotation. It was then malleted into position with light blows, giving breaks to allow bone expansion and decrease risk of fracture. The selected Depuy Altrx Ceramic Head, size 36+1.5mm, was then placed onto the clean and dry trunnion and secured with impaction onto the tapered fit. The leg was brought back out of extension and adduction and reduced with traction and internal rotation. Stability was confirmed with no shuck at 90 degrees of external rotation and 30 degrees of extension. No impingement through range of motion arc. Final x-ray images were obtained with fluoroscopy to confirm adequate positioning and no intraoperative fracture. The deep tissues were thoroughly irrigated with Surgiphor betadine solution. This was allowed to sit in the hip for 3 minutes and then it was irrigated and rinsed completely with saline. The capsule was then reapproximated with the previously placed Ethibond sutures. The TFL fascia was finally closed with a No. 2 Stratafix, barbed suture. Deep tissues were then reapproximated with 0 Vicryl and a running 2-0 Vicryl. The skin was closed with a running 4-0 Monocryl in a subcuticular fashion. This was reinforced with skin glue. A Mepilex silver dressing was applied. At the end of the case, all counts were correct. Alcon was transferred to the hospital bed without difficulty and suffering no apparent complication. Alcon has a good prognosis. Physical therapy will start today and without restri ctions, weight-bearing as tolerated. Aspirin 81mg BID will be used for DVT prophylaxis.
[2021-05-11] MEDS: fentaNYL 100 MCG/2 ML VIAL IVP ×2 (09:37→09:59)
--- NOTE | 2021-05-11 11:15 | IN_ITS ---
Date of service: 05/11/21 Time of Service: 11:15 PT Notes Visit Reasons: Right Hip DJD Physical Therapy Day Surgery Initial Evaluation Date: 05/11/2021 Referring Doctor: Wesly Hooks MD PT Orders: PT CONSULT: S/P Ortho Surgery. S/P R CRISTIANA. Precautions: WBAT on the R LE with AD. Patient Profile/Admitting Diagnosis: Alcon is a 71-year-old male with degenerative joint disease of the right hip and status post right anterior total hip arthroplasty on postoperative day 0. PMHX: Medical History?(Updated 03/22/21 @ 10:34 by JENNIFER Hollingsworth) Acute cholecystitis Hypertension Osteoarthritis Osteoarthritis involving joints of upper arms, bilateral Surgical History?(Updated 10/19/20 @ 13:17 by Sarika Rodriguez RN) History of colonoscopy (~12/31/10) Social History/Home Situation: Lives with significant other Juliette in a private home with 12 steps to enter and B rails. Independent with all aspects of ADLs priorto surgery. Did not use a FWW nor a cane. Mountain bikes and hikes. Equipment Owned/DME: None Subjective: Agreeable to PT consult. Reports of a mild ache on the R hip that radiatess down the thigh. Java better after walking. Denies headache, dizziness, and chest pain throughout. Objective: General Observation: Supine in bed. Mepilex Ag over surgical incision. Cold pack over surgical site. Nurses Orlin and Nurse White assisting for safety. Mental Status: Alert and oriented x 4 Pain: 3-4/10 on alondra R hip and thigh ROM: Right Lower Extremity: Hip flexion WFL. Hip abduction WFL. Knee flexion WFL. Ankle dorsiflexion WFL. Ankle plantarflexion WFL. Left Lower Extremity: Hip flexion WFL. Hip abduction WFL. Knee flexion WFL. Ankle dorsiflexion WFL. Ankle plantarflexion WFL. Strength: Right Lower Extremity: Hip flexors 4/5. Hip abductors 4/5. Knee flexors 5/5. Knee extensors 4/5. Ankle dorsiflexors 5/5. Ankle plantarflexors 5/5. Left Lower Extremity:Hip flexors 5/5. Hip abductors 5/5. Knee flexors 5/5. Knee extensors 5/5. Ankle dorsiflexors 5/5. Ankle plantarflexors 5/5. Sensation: Intact from the waist down B LE as to pain and light touch Bed Mobility/Transfers: Supine to sit Independent Sit to stand standby assist Stand to sit standby assist Bed to chair standby assist Gait: 150 feet of level surface with FWW, stand by assist with wheelchair follow of Nurse Ordaz for safety. Step-to gait pattern. NO reports of increased pain. Denies headache, dizziness, and chest pain throughout. Stairs: Up and down 6 x 4 steps and 4 x 6 steps while holding onto B rails with step to gait pattern with stand by assist, Nurses Orlin and Cindy on stand by assist for safety. Minimal cues provided for correct technique. Balance: Static Sitting: Normal Dynamic Sitting: Normal Static Standing: Fair Dynamic Standing: Fair Special Tests: Mobility Limitations Standardized Measure [facility] 6 clicks Basic Mobility Inpatient Short Form: Raw Score: 23 CMS Score: 11% deficit Informed Consent/Education: Patient instructed in purpose of PT consult. Education and training on initial set of exercises that can be done at home have been completed with patient with highlight of the free downloadable [place] bill. Assessment: Requires the use of a front wheeled walker for all mobility ADL performance to maximize independence and reduce fall risk. Alcon is a 71-year-old male with degenerative joint disease of the right hip and status post right anterior total hip arthroplasty on postoperative day 0. Patient presents with clinical signs and symptoms consistent with current/admitting diagnoses that have resulted to mobility limitations, gait instability, generalized weakness, and impairment of motor control as demonstrated by the following impairment level findings: 1. Decreased strength to right hip major muscle groups 2. Impaired standing balance Impairments are contributing to the following functional limitations: 1. Inability to safely ambulate without assistive device 2. Increase completion time for mobility ADL performance 3. Increased fall risk Patient is assessed as a 58996 moderatecomplexity based on the following: History: -71 year-old male with impairment level findings, functional limitatio ns, and past medical history as indicated above Examination: Demonstrable impairment in strength, balance, and mobility level with underlying impairments and functional limitations as documented above Presentation: Evolving Decision Makin moderate complexity Goals: N/A. PT evaluation and 1-2 treatment sessions only for functional mobility training using recommended AD and for HEP instruction. Plan of Care/Treatment Plan: N/A. PT evaluation and 1-2 treatment session only for functional mobility training using recommended AD and for HEP instruction. DISCHARGE RECOMMENDATIONS: [] Home with no services [] [] Home with services [specify] [X] Home with outpatient PT. Home when medically cleared by orthopedic surgeon. May benefit from outpatient PT services in order to facilitate return to independent community ambulation and to prior level of function without an assistive device. [] SNF for continued rehabilitation [] [] Operating Room Surgical Technician Care [] [] SNF versus LTC based on ability to participate and progress [] TREATMENT CODE/TIME: 81610 x 20 minutes, 9753 0 x 11 minutes beginning at 11:15 AM. Thank you for the opportunity to participate in the care of this patient. Ashlie Pham PT, DPT, CLT [facility] [place], [place]
[2021-05-11] MEDS: oxyCODONE 5 MG TAB PO (11:22)
--- NOTE | 2021-05-11 12:03 | W.ANESPOSTOP ---
Postoperative Evaluation Date, Time and Location Date Performed: 05/11/21 Time Performed: 12:04 Patient Location: Day Surgery Unit Vital Signs Most Recent Imported Vital Signs: Most Recent Vital Signs Temp Pulse Resp BP Pulse Ox 36.3 C L 80 16 146/92 H 97 05/11/21 10:56 05/11/21 10:56 05/11/21 10:56 05/11/21 10:56 05/11/21 10:56 Pain Score Most Recent Pain Score: Most Recent Pain Score Pain Level 3 05/11/21 10:56 Assessment Mental Status: Awake (Alert & Oriented to Patient Baseline) Airway and Respiratory Function: Patent airway with normal (patient baseline) respiratory exam Cardiovascular Function: Hemodynamically Stable Hydration Status: Adequately Hydrated Nausea & Vomiting: No Nausea or Vomiting Pain: Pt. Denies Any Pain Peripheral Nerve Block: Patient did not receive a nerve block
--- NOTE | 2021-05-11 12:19 | W.ANESPOSTOP ---
Postoperative Evaluation Date, Time and Location Date Performed: 05/11/21 Time Performed: 10:56 Patient Location: Day Surgery Unit Vital Signs Most Recent Imported Vital Signs: Most Recent Vital Signs Temp Pulse Resp BP Pulse Ox 36.3 C L 80 16 146/92 H 97 05/11/21 10:56 05/11/21 10:56 05/11/21 10:56 05/11/21 10:56 05/11/21 10:56 Most Recent Vital Signs Temp Pulse Resp BP Pulse Ox 36.3 C L 80 16 146/92 H 97 05/11/21 10:56 05/11/21 10:56 05/11/21 10:56 05/11/21 10:56 05/11/21 10:56 Pain Score Most Recent Pain Score: Most Recent Pain Score Pain Level 3 05/11/21 10:56 Assessment Mental Status: Awake (Alert & Oriented to Patient Baseline) Airway and Respiratory Function: Patent airway with normal (patient baseline) respiratory exam Cardiovascular Function: Hemodynamically Stable Hydration Status: Adequately Hydrated Nausea & Vomiting: No Nausea or Vomiting Pain: Pain is tolerable per patient Peripheral Nerve Block: Patient did not receive a nerve block
== END 2021-05-11 12:15 | disposition home or self-care (01) ==
PROVIDERS: PCP Family Medicine; Visit Provider Student in an Organized Health Care Education/Training Program
PROC: (CPT 27130; principal; 2021-05-11 07:30)
DX: M16.11 Unilateral primary osteoarthritis, right hip (principal); N40.0 Benign prostatic hyperplasia without lower urinary tract symptoms; M51.36 Other intervertebral disc degeneration, lumbar region; I10 Essential (primary) hypertension
CPT/HCPCS: 20985; 27130; C1776; 97162; 97530; 73501; J0690; J1100; J1885; J2001; J2370; J2405; J2704; J3010

== ENCOUNTER 2021-05-27 11:47 | Outpatient (CLI) | payer OTHER, MEDICAID, SELFPAY ==
--- NOTE | 2021-05-27 11:00 | DI.RAD_ITS ---
Exam(s) XR HIP RT COMPLETE AP PELVIS EXAM: XR HIP RT COMPLETE AP PELVIS INDICATION: 1ST POST OP R CRISTIANA. COMPARISON: CR XR PELVIS AP from 04/29/2021 XA XR HIP RT IN OR from 05/11/2021 TECHNIQUE: 2D digital imaging was performed. Two views FINDINGS: A right hip prosthesis is again noted. The alignment appears unchanged. No abnormal bony lucencies are seen. The left hip is unremarkable. DATA REPOSITORY: RADIATION DOSE DELIVERED:
== END 2021-05-27 11:48 | disposition home or self-care (01) ==
LOC: DIORS 11:47
PROVIDERS: PCP Family Medicine; Referring Provider Family Medicine; Visit Provider Student in an Organized Health Care Education/Training Program
DX: Z96.641 Presence of right artificial hip joint (principal)
CPT/HCPCS: 73502

== ENCOUNTER → 2021-07-01 10:56 | Outpatient (BNVA) | payer OTHER, MEDICAID, SELFPAY | PROVIDERS: PCP Family Medicine; Referring Provider Family Medicine; Visit Provider Student in an Organized Health Care Education/Training Program | DX: Z96.641 Presence of right artificial hip joint (principal) ==

== ENCOUNTER 2021-09-14 18:10 | Outpatient (REF) | payer OTHER, MEDICAID, SELFPAY ==
[2021-09-14 15:24] LABS: Abs Immature Grans 0.03 10^3/uL (0.0-0.06); Absolute Basophil Count 0.11 10^3/uL (0.0-0.2); Absolute Eosinophil Count 0.15 10^3/uL (0.0-0.7); Absolute Lymphocyte Count 2.31 10^3/uL (1.2-3.4); Absolute Monocyte Count 0.84 10^3/uL (0.1-0.8); Absolute Neutrophil Count 4.28 10^3/uL (1.2-6.7); Basophils % 1.4; Eosinophils % 1.9; HCT 45.4 % (40.0-50.0); HGB 15.3 g/dL (13.5-17.5); Immature Grans % 0.4; Lymphocytes % 29.9; MCH 29.4 pg (27.0-33.0); MCHC 33.7 % (32.0-36.0); MCV 87 fL (80-95); MPV 10.6 fL (8.0-11.0); Monocytes % 10.9; Neutrophils % 55.5; Platelet Count 300 10^3/uL (130-400); RBC 5.21 10^6/uL (4.36-5.78); RDW 13.2 % (11.8-14.1); WBC 7.72 10^3/uL (4.4-10.8)
[2021-09-14 15:41] LABS: BUN 15 mg/dL (7-18); Calcium 8.7 mg/dL (8.5-10.1); Calculated LDL 98 mg/dL (<100); Chloride 99 mmol/L (98-107); Cholesterol 194 mg/dL (<200); Glucose 110 mg/dL (74-106); HDL Cholesterol 65 mg/dL (40-60); Potassium 3.9 mmol/L (3.5-5.1); Sodium 137 mmol/L (136-145); Triglyceride 155 mg/dL (<150)
== END 2021-09-14 18:11 | disposition home or self-care (01) ==
LOC: NCHCN 18:10
PROVIDERS: PCP Family Medicine; Visit Provider Family Medicine
DX: I10 Essential (primary) hypertension (principal); E78.5 Hyperlipidemia, unspecified
CPT/HCPCS: 80048; 80061; 85025

== ENCOUNTER → 2022-01-27 09:38 | Outpatient (BNVA) | payer OTHER, MEDICAID, SELFPAY | PROVIDERS: PCP Family Medicine; Referring Provider Internal Medicine; Visit Provider Physical Therapy Assistant | DX: Z12.11 Encounter for screening for malignant neoplasm of colon (principal) ==

== ENCOUNTER 2022-05-12 11:21 | Outpatient (CLI) | payer OTHER, MEDICAID, SELFPAY ==
--- NOTE | 2022-05-12 10:00 | DI.RAD_ITS ---
Exam(s) XR HIP RT AP LAT ONLY EXAM: XR HIP RT AP LAT ONLY INDICATION: ANNUAL F/U R CRISTIANA. COMPARISON: CR XR HIP RT COMPLETE AP PELVIS from 05/27/2021 TECHNIQUE: 2D digital imaging was performed. Two views. FINDINGS: There has been no change in the alignment of the right hip prosthesis or appearance of the surroundin g bone. DATA REPOSITORY: RADIATION DOSE DELIVERED:
== END 2022-05-12 11:22 | disposition home or self-care (01) ==
LOC: DIORS 11:22
PROVIDERS: PCP Family Medicine; Referring Provider Family Medicine; Visit Provider Student in an Organized Health Care Education/Training Program
DX: Z96.641 Presence of right artificial hip joint (principal); Z47.1 Aftercare following joint replacement surgery
CPT/HCPCS: 99213; 73502

== ENCOUNTER → 2022-07-28 11:41 | Outpatient (BNVA) | payer OTHER, MEDICAID, SELFPAY | PROVIDERS: PCP Family Medicine; Referring Provider Family Medicine; Visit Provider Physical Therapy Assistant | DX: Z12.11 Encounter for screening for malignant neoplasm of colon (principal); K57.92 Diverticulitis of intestine, part unspecified, without perforation or abscess without bleeding ==

== ENCOUNTER 2022-09-06 09:18 | Day surgery (SDC) | payer OTHER, MEDICAID, SELFPAY ==
--- NOTE | 2022-09-05 22:33 | W.COLOREPORT ---
Date of service: 09/06/22 Time of Service: 09:30 Colonoscopy Report Date of procedure: 09/06/22 Pre-op diagnosis general: pérez-diverticulosis. Post-op diagnosis procedure note: other (Internal and external hemorrhoids and severe diverticular disease) Surgeon: Smiley Damon Anesthesia Type: General:No Airway Estimated blood loss (mL): 0 Pathology: none sent Complications: None Disposition: PACU Prep: Miralax/Dulcolax Retraction Time: 7 mins Procedure Description: After informed consent was obtained the patient was taken to the procedure room and placed in a left decubitous position. Monitors were applied and a time out was done. The patients name, date of , procedure, allergies to medications and metal in their body was reviewed. The patient was then sedated. Once sedated and comfortable a rectal exam was done. External exam was normal; except for external hemorrhoidal tags. Internal exam revealed a normal sphincter tone and no palpable masses. The scope was then introduced and retrofelexed. Grade 2 internal hemorrhoids, x2 columns, were identified. The scope was then advanced to the cecum without difficulty. The TI and appendiceal orifice were identified. The prep was BBPS 3 in all segments for total of 9. The scope was then slowly retracted over 7 minutes back into the rectum. There are no polyps or AVMs visualized. He does have severe diverticular disease that carries all the way over to the cecum. There are no signs of active bleeding or infection. The mucosa is pink and healthy with a normal vascular pattern. the scope was removed and the patient was woken up and taken back to Same day surgery in stable condition. The patient tolerated the procedure well and there were no immediate complications. Follow up: The patient does not require any further screening colonoscopies, unless they develop changes in bowel habits or other new gastrointestinal complaints.
--- NOTE | 2022-09-05 22:34 | PDOC.DSDIS_ITS ---
Date of service: 09/06/22 Time of Service: 11:01 Discharge Plan Disposition Patient Disposition: Home Condition: Good Discharge Details Attending Provider: Smiley Damon Primary Care Provider: Ryley Holley Home Meds and New Rx's Prescriptions: Continued meloxicam 15 mg tablet 15 mg PO DAILY Lumigan 0.01 % drops 1 drp ophthalmic (eye) DAILY amlodipine 5 mg tablet 5 mg PO HS triamterene-hydrochlorothiazid 37.5-25 mg capsule 1 cap PO DAILY fluoride (sodium) [SF 5000 Plus] 1.1 % cream 1 applic dental DAILY losartan 25 mg tablet 100 mg PO HS acetaminophen 500 mg tablet 500 mg PO Q6H PRN PRN (Reason: pain) Qty: 90 3RF Discontinued bisacodyl [Dulcolax (bisacodyl)] 5 mg tablet,delayed release (DR/EC) 5 mg PO ONCE Qty: 4 0RF Rx Instructions: Take per colonoscopy instructions provided by ordering providers office polyethylene glycol 3350 17 gram/dose powder 17 g PO ONCE Qty: 238 0RF Rx Instructions: Take per colonoscopy instructions provided by ordering providers office Discharge Instructions Additional Instructions: DSU Colonoscopy Post- Op Instructions Instructions for Everyone who is given Anesthesia: For your safety, please do the following for the next twenty-four (24) hours: *Do Not operate a motor vehicle (car, truck, motorcycle, etc.) *Do Not drink alcoholic beverages or use any recreational drugs for the first 24 hours or while taking pain medications. The medications in your body may have a reaction that can be dangerous. *Do Not make any important decisions or sign any important papers. Findings: -Severe diverticular disease. Make sure you are moving your bowels on a regular basis and you are not straining. or you are straining to move the bowels, it is recommended you start a fiber product daily such as Metamucil. if you find that you have constipation Follow up: No further repeat colonoscopy is recommended at this time. Of course, you should continue to have a yearly physical exam including a rectal exam. if youshould ever notice any pain or difficulty having a bowel movement, blood in the stool, unexplained weight loss, or change in your bowel habits, please contact your health provider 1. No lifting over 20 pounds or strenuous activity for the first 24 hours after your procedure. After 24 hours there are no restrictions on your activity but you may feel fatigued for a few days. 2. After you arrive home you may have a light meal and return to your normal diet as you can tolerate it without feeling sick to your stomach. 3. You may have a bloated, gaseous feeling in your belly (abdomen) after a colonoscopy. Passing gas and belching will help. Walking or lying down on your left side with your knees flexed may relieve the discomfort. Call the office at [phone] (Office) or [phone] (Hospital) right away if you notice any of the following: a.Vomiting of blood or ?coffee ground stools?. b.Rectal bleeding 1Tbsp, blood clots or continuous bleeding. c.Severe belly (abdominal) pain. d.A hard distended belly (abdomen) and an inability to pass gas. 4. Please don?t expect to have a normal BM (bowel movement) for 2-3 days after your procedure. 5. If there are questions regarding the findings of your procedure, please cont act your doctor 6. If you are unable to contact your doctor with a problem, contact the hospital at [phone]. 7. Continue all your regular medications unless directed otherwise. I understand the above instructions and have no questions. Signature of Patient or Adult Escort Name of Responsible Adult Escort Signature of Nurse Date/Time Stand Alone Forms: Anesthesia Discharge Yamileth Potts (ARACELYU) Activity:: see above Diet:: see above DS: Diagnosis Discharge Diagnosis (1) Diverticulosis of colon without diverticulitis: Status: Acute Asessment and Plan: The patient is seen and examined after their colonoscopy.? The patient has been able to pass gas.? They are not having abdominal pain.? They have been able to tolerate liquids and a snack.? They do not have any nausea or vomiting.? They are not having any chest pain or shortness of breath.??? They are not having any rectal bleeding. Their vital signs have been stable-see nursing notes. We discussed findings during their colonoscopy, and any biopsies that were done/polyps that were removed. The patient will be sent a letter with any biopsy results, and when to repeat the colonoscopy.-see discharge instructions. Patient was given explicit instructions to follow-up regarding colonoscopy-refer to discharge instructions.? We reviewed resumption of medications. Patient verbalized understanding and discharged in stable and satisfactory condition- See nursing notes. (2) Acute cholecystitis: (3) BPH (benign prostatic hyperplasia): (4) DDD (degenerative disc disease), lumbar: (5) Hypertension:
--- NOTE | 2022-09-06 09:06 | ANES.PREOP_ITS ---
General Info Date of Service Date Performed: 09/06/22 Height: 6 ft Weight: 90.718 kg Body Mass Index (BMI): 27.1 Surgical Procedure: Operation Date: 09/06/22 10:20 Proposed Procedure Side Surgeon karuna Damon, Meds Allergies and Home Medications Allergies Allergy/AdvReac Type Severity Reaction Status Date / Time lisinopril AdvReac Unknown Verified 09/06/22 09:45 Home Medication Medication Instructions Recorded fluoride (sodium) 1.1 % dental 1 applic dental DAILY 10/19/20 cream (SF 5000 Plus) losartan 25 mg tablet 100 mg PO HS 10/19/20 triamterene 37.5 1 cap PO DAILY 10/19/20 mg-hydrochlorothiazide 25 mg capsule amlodipine 5 mg tablet 5 mg PO HS 03/22/21 acetaminophen 500 mg tablet 500 mg PO Q6H PRN PRN pain #90 tabs 05/11/21 bimatoprost 0.01 % eye drops 1 drp ophthalmic (eye) DAILY 01/27/22 (Marjorie) meloxicam 15 mg tablet 15 mg PO DAILY 05/12/22 Current Visit Medications: Current Medications Generic Name Dose Route Start Last Admin Trade Name Freq PRN Reason Stop Dose Admin Hyoscyamine Sulfate 0.125 mg 09/06/22 10:28 Hyoscyamine 0.125 Mg Sl/Oral/Chew SL 10/06/22 10:27 DIRECTED PRN Ringer's Solution 1,000 mls @ 80 mls/hr 09/06/22 06:00 IV 09/06/22 23:59 [facility] IV Miscellaneous Supplies 1 each 09/06/22 06:00 Iv Access IV 09/06/22 23:59 DIRECTED TERRA Ondansetron HCl 4 mg 09/06/22 10:28 Ondansetron 4 Mg/2 Ml Vial IVP 10/06/22 10:27 Q4H PRN PRN Nausea / Vomiting Sodium Chloride 0 ml 09/06/22 06:00 Normal Saline Flush 10 Ml Syr IV 09/06/22 23:59 PRN PRN Sodium Chloride 0 ml 09/06/22 06:00 Normal Saline 10 Ml Vial IJ 09/06/22 23:59 DIRECTED PRN Sterile Water 0 ml 09/06/22 06:00 Water,Injection,Sterile 10 Ml Vial IJ 09/06/22 23:59 DIRECTED PRN PFSH Active Problems Active Problems: Problem Status Onset Code Diverticulosis of colon without diverticulitis K57.30 Screening for colon cancer Z12.11 Medical History Medical History Acute cholecystitis BPH (benign prostatic hyperplasia) DDD (degenerative disc disease), lumbar Hypertension Lumbar spondylosis Osteoarthritis Osteoarthritis involving joints of upper arms, bilateral SNHL (sensory-neural hearing loss), asymmetrical Surgical History Surgical History History of colonoscopy (~12/31/10) 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) Hx laparoscopic cholecystectomy Tobacco Smoking/Tobacco Use Status: Never Alcohol Alcohol Intake: current Alcohol intake frequency: a few times a week Substance Use Substance use: Occasionally Substance use type: marijuana Vital Signs and Lab Results Vital Signs Most Recent Vital Signs in EMR: Temp Pulse Resp BP Pulse Ox 36 C L 85 18 159/88 H 96 09/06/22 09:39 09/06/22 09:39 09/06/22 09:39 09/06/22 09:39 09/06/22 09:39 Lab Results Blood Type / Crossmatch: No Data to Display Complete Blood Count: No Data to Display Complete Metabolic Panel: No Data to Display Liver Function Panel: No Data to Display Coagulation Panel: 2 No Data to Display Cardiac Panel: No Data to Display Arterial Blood Gas: No Data to Display Venous Blood Gas: No Data to Display Pancreas Panel: No Data to Display Thyroid Panel: No Data to Display Infectious Disease: No Data to Display Blood Cultures: No Data to Display Toxicology Panel: No Data to Display Imaging and Studies Imaging and Studies Study information below may be from another EMR and interpreted by another provider. Please see original notes in EMR for more complete details. EKG Summary: DATE/TIME OF SERVICE: 03/16/21 0039 Exam: Resting ECG Reason for Exam: epigastric pain HR:70 bpm ECG Measurements Heart Rate 70 AXIS ME 178 P 52 QRSd 110 QRS 26 QT 426 T28 QTc 462 Conclusion Sinus rhythm...normal P axis, V-rate 60- 99 Anesthesia Assessment and Plan Anesthesia History Personal History: No History of Anesthesia Complications Family History: No Family History of Anesthesia Complications Exercise Tolerance Exercise Tolerance: Metabolic Equivalents>4 Pertinent Negatives Pertinent Negatives: No Symptoms of GERD, No Major Cardiovascular Symptoms or Complaints, No Major Pulmonary Symptoms or Complaints and No History of CVA/TIA Cardiac & Pulmonary Exam Cardiac Exam: Normal S1/S2 Heart Sounds Pulmonary Exam: Clear Bilateral Breath Sounds Implantable Cardiac Device Does patient have a Pacemaker or an ICD?: No Airway Exam Known Difficult Airway: No Mallampati Class: 1 Mouth Opening: Normal (> 3cm) Thyromental Distance: Greater than 3 cm Neck Range of Motion: Full ROM Neck Circumference: Thick Teeth Condition: Normal Dentition and Other ASA Classification ASA Score: ASA 2 Emergency Case?: No NPO Status NPO Status: NPO Clears >2 hours, Solids >8 hours Anesthesia Plan Resuscitation Status: Full Code Anesthesia Technique: General Anesthesia Airway Planned: Natural Airway Monitors Used: Standard Monitors Preoperative Comments:: 72 yo male for colo. Sig PMHx: HTN, never smoker, occ EtOH. Previous Anes: - lap brando yousif 2, grade 1, easy mask. no issues. - CRISTIANA, 3 attempt spinal, prop sedation, natural airway, no issues.
[2022-09-06 09:39] VITALS: BP 159/88; PULSE 85; RESP 18; TEMP 36; O2SAT 96
[2022-09-06] MEDS: Lactated Ringers 1,000 ML 80 ML IV (09:59)
--- NOTE | 2022-09-06 10:17 | HPE_ITS ---
Date of service: 09/06/22 Time of Service: 10:17 Assessment and Plan Assessment and plan (1) Diverticulosis of colon without diverticulitis: Status: Acute Assessment and plan: Plan: Colonoscopy w/ general & natural airway. The?patient will be scheduled by my office. -Patient does have a history of diverticular disease. He thinks he may also have some hemorrhoids. He has a history of glaucoma and hypertension.- The pt understands that they need to do a bowel prep and the importance of hydration during this.? The patient understands there is a theoretical risk of renal failure.? For healthy patients we use Gatorade/Miralax Prep.? ?For anyone with renal concerns- GoLytely will be used. Plavix and coumadin will need to be held except in unusual circumstances. ? Patients in A. Fib do not need to be bridged with Lovenox or on CVA prophylaxis.? A baby ASA can be continued but full dose ASA needs to be stopped for 10 days prior to the procedure. A complete H & P is required within 30 days of the procedure.? GETA w/natural airway is used for the colonoscopy.? Informed consent is obtained for the procedural (explained in simple layman's terms that?the pt and/or family could understand) explaining risks vs benefits and alternatives to the procedure and consequences if we do not do the procedure and need/rational for the procedure. Risks include but are not limited to: bleeding, infection, perforation of colon.? This would necessitate emergency surgery to repair the damage w/ possible ostomy; and other associated complications w/ the required surgery. ? Also complications of anesthesia including aspiration, AZ/CVA/, inability to complete the procedure. I discussed with the?patient would they could expect during the procedure, post procedure and recovery time and risks.? The patient understands that they need to have a ride home after the procedure.? The patient was given all this information in writing and expressed understanding. If there are any questions or concerns please feel free to contact our office.? Generally Colonoscopy does not require antibiotics prophylaxis, (2) Screening for colon cancer: Status: Acute (3) BPH (benign prostatic hyperplasia): (4) DDD (degenerative disc disease), lumbar: (5) Hypertension: (6) Lumbar spondylosis: (7) Osteoarthritis: (8) Osteoarthritis involving joints of upper arms, bilateral: (9) SNHL (sensory-neural hearing loss), asymmetrical: (10) Glaucoma: Status: Chronic History of Present Illness Narrative: today: 09/06/22 Patient is here today for colonoscopy for CRC screen.??? They completed a bowel prep with just a clear yellow residual effluent.? They not having any chest pain or shortness of breath, currently.? They are not experiencing any fever or chills.? They deny any productive cough or upper respiratory tract infection signs or symptoms.? They are not having abdominal pain, or nausea and vomiting.? They have not had any changes in medications, past medical history or past surgical history since previously being seen in the office. They have not had any accidents or have been in the ER since the clinic pre-operative evaluation. ??I reviewed the procedure with the patient today, including risks and benefits of the procedure, and what they could expect at home for recovery.? All questions are answered to the patient?s satisfaction today, and they are stable to proceed with the proposed procedure. PreOP from 07/28/22 72 y/o male with history of hypertension, BPH and sensorineural hearing loss presents for updated H&P for colonoscopy screening.? He denies having any changes since he was last seen by this provider.? His last screening was in 2010 and was remarkable for pandiverticulosis.?He denies a family history of colon cancer. He denies any changes in bowel habits including bloody or black tarry stools, abdominal pain, diarrhea or constipation. He denies constitutional symptoms. Denies use of marijuana or any other recreational or illegal drugs. He denies chest pain, palpitations, dyspnea or dyspnea with exertion. He reports walking several times a week for exercise. He denies prior history or family history of adverse reactions or complications with anesthesia. The patient denies any history of stroke, AZ, seizures, bleeding or clotting disorders. He reports having metal implanted in his right hip. The patient is here for Colonoscopy pre-op. His last screening was in 2010 and was remarkable for pandiverticulosis.? He has no family history of colon cancer. He has not had any bowel habit changes. -Discussed colonoscopy bowel prep as well as the procedure. Discussed possible complications of the procedure to include bleeding, pain, perforation, missed small lesion/polyp, sore throat, aspiration and adverse reaction to the medications. Questions were answered to patient?s satisfaction. No guarantees were implied or given.? On auscultation of had an irregular heartbeat.? He was completely asymptomatic.? Denies having any chest pain, shortness of breath, lightheadedness, dizziness.? He denies having or having any palpitations.? Called and spoke with [facility] and they were able to get him in for an EKG and a visit.? Note has been scanned into his chart.? EKG was obtained and 1 PVC and 1 PAC was noted.? He continued to be asymptomatic.? We will proceed with colonoscopy. Anesthesia: general (without airway) Previous surgical intolerances: None Previous surgical complications: None Pulmonary risk factors: None PFT's: None Planned procedure: Yes Sleep apnea risks: None Can climb one flight of stairs (12-13 steps) in less than 30 seconds without stopping and without symptoms: yes The surgery proposed for this patient is: Low risk Active cardiac conditions: None ECHO: None Stress Test: None none Active risk factors: None ASA (acetylsalicylic acid): No longer uses Beta blockers: Does not use Review of Systems All systems reviewed & are unremarkable except as noted in HPI and below PFSH All Active Problems (Updated 09/06/22 @ 10:25 by Smiley Damon DO) Glaucoma (Chronic) Diverticulosis of colon without diverticulitis (Acute) Screening for colon cancer (Acute) Medical History Acute cholecystitis BPH (benign prostatic hyperplasia) DDD (degenerative disc disease), lumbar Hypertension Lumbar spondylosis Osteoarthritis Osteoarthritis involving joints of upper arms, bilateral SNHL (sensory-neural hearing loss), asymmetrical Surgical History History of colonoscopy (~12/31/10) 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) Hx laparoscopic cholecystectomy Social History Smoking/Tobacco Use Status: Never Smoking risk assessment performed?: Yes Alcohol Intake: current Alcohol Intake frequency: a few times a week Alcohol type: beer Drug use: Occasionally Substance use type: marijuana Housing: apartment Do you feel safe at home: Yes Do you feel safe in your relationship?: Yes Meds Allergies and Home Medications Allergies Allergy/AdvReac Type Severity Reaction Status Date / Time lisinopril AdvReac Unknown Verified 09/06/22 09:45 Home Medications Medication Instructions Recorded Confirmed Type fluoride (sodium) 1.1 % dental 1 applic dental DAILY 10/19/20 09/06/22 History cream (SF 5000 Plus) losartan 25 mg tablet 100 mg PO HS 10/19/20 09/06/22 History triamterene 37.5 1 cap PO DAILY 10/19/20 09/06/22 History mg-hydrochlorothiazide 25 mg capsule amlodipine 5 mg tablet 5 mg PO HS 03/22/21 09/06/22 History acetaminophen 500 mg tablet 500 mg PO Q6H PRN PRN pain #90 tabs 05/11/21 09/06/22 Rx bimatoprost 0.01 % eye drops 1 drp ophthalmic (eye) DAILY 01/27/22 09/06/22 History (Marjorie) meloxicam 15 mg tablet 15 mg PO DAILY 05/12/22 09/06/22 History Exam Narrative Exam Narrative: PHYSICAL EXAM GENERAL APPEARANCE: Alert, healthy appearance, oriented, x 3,? in no acute distress HYDRATION: Well hydrated HEAD, EYES, EARS, NECK, THROAT: Head is normocephalic, pupils equal, round, reactive to light and accommodation, ocular movement intact, sclera clear and no jaundice. ?Dentition intact. LUNGS: normal respiration/normal chest excursion. ?Clear to auscultation bilaterally. ?No wheeze. ?HEART: Regular rate and rhythm. no murmurs ABDOMEN: soft and non-tender to palpation.? Normal bowel sounds.? Results Last Vital Signs Temp 36 C L 09/06/22 09:39 Pulse 85 09/06/22 09:39 Resp 18 09/06/22 09:39 BP 159/88 H 09/06/22 09:39 Pulse Ox 96 09/06/22 09:39 Time Spent Time spent with Patient: <40 minutes Time was spent: preparing to see the patient(eg.review tests), obtaining and/or reviewing separately otained hiistory, ordering medications,tests, procedures, referring, communicating with other health day care home provider, indepentently interpreting results, counseling the patient and care coordination
[2022-09-06 10:45] VITALS: BMI 27.1
[2022-09-06 10:57] VITALS: BP 113/74; PULSE 74; RESP 16; TEMP 36.2; O2SAT 95
--- NOTE | 2022-09-06 11:22 | W.ANESPOSTOP ---
Postoperative Evaluation Date, Time and Location Date Performed: 09/06/22 Time Performed: 11:03 Patient Location: Day Surgery Unit Vital Signs Most Recent Imported Vital Signs: Most Recent Vital Signs Temp Pulse Resp BP Pulse Ox 36.2 C L 74 16 113/74 95 09/06/22 10:57 09/06/22 10:57 09/06/22 10:57 09/06/22 10:57 09/06/22 10:57 Pain Score Most Recent Pain Score: Most Recent Pain Score Pain Level 0 09/06/22 10:57 Assessment Mental Status: Awake (Alert & Oriented to Patient Baseline) Airway and Respiratory Function: Patent airway with normal (patient baseline) respiratory exam Cardiovascular Function: Hemodynamically Stable Hydration Status: Adequately Hydrated Nausea & Vomiting: No Nausea or Vomiting Pain: Pt. Denies Any Pain Peripheral Nerve Block: Patient did not receive a nerve block
[2022-09-06 11:30] VITALS: BP 146/80; PULSE 76; RESP 16; TEMP 36; O2SAT 98
== END 2022-09-06 11:46 | disposition home or self-care (01) ==
PROVIDERS: PCP Family Medicine; Visit Provider Surgery
PROC: 0DJD8ZZ Inspection of Lower Intestinal Tract, Via Natural or Artificial Opening Endoscopic (ICD-10-PCS; CPT 45378; principal; 2022-09-06 10:15)
DX: Z12.11 Encounter for screening for malignant neoplasm of colon (principal); K57.30 Diverticulosis of large intestine without perforation or abscess without bleeding; K64.4 Residual hemorrhoidal skin tags; K64.1 Second degree hemorrhoids
CPT/HCPCS: G0121

== ENCOUNTER 2022-09-13 13:15 | Outpatient (REF) | payer OTHER, MEDICAID, SELFPAY ==
[2022-09-13 16:38] LABS: Hemoglobin A1C 5.8 % (<5.7)
== END 2022-09-13 13:16 | disposition home or self-care (01) ==
LOC: NCHCN 13:15
PROVIDERS: PCP Family Medicine; Visit Provider Family Medicine
DX: R73.03 Prediabetes (principal)
CPT/HCPCS: 83036

== ENCOUNTER 2022-09-21 14:17 | Outpatient (REF) | payer OTHER, MEDICAID, SELFPAY ==
[2022-09-21 21:22] LABS: Anion Gap 10.2 mmol/L (3-11); BUN 21 mg/dL (7-18); CO2 25.8 mmol/L (21.0-32.0); CREATININE 0.9 mg/dL (0.70-1.30); Calcium 9.4 mg/dL (8.5-10.1); Calculated LDL 147 mg/dL (<100); Chloride 98 mmol/L (98-107); Cholesterol 238 mg/dL (<200); Estimated GFR 90.18 (mL/min/1.73m2); Glucose 107 mg/dL (74-106); HDL Cholesterol 65 mg/dL (40-60); Magnesium 2.1 mg/dL (1.8-2.4); Potassium 3.9 mmol/L (3.5-5.1); Sodium 134 mmol/L (136-145); Triglyceride 134 mg/dL (<150)
[2022-09-22 20:30] LABS: PSA, Screening 1.3 ng/mL (<=6.5)
== END 2022-09-21 14:18 | disposition home or self-care (01) ==
LOC: NCHCN 14:17
PROVIDERS: PCP Family Medicine; Visit Provider Family Medicine
DX: R73.03 Prediabetes (principal); I49.1 Atrial premature depolarization; I49.3 Ventricular premature depolarization; F10.99 Alcohol use, unspecified with unspecified alcohol-induced disorder; R03.0 Elevated blood-pressure reading, without diagnosis of hypertension; E78.5 Hyperlipidemia, unspecified
CPT/HCPCS: 80048; 80061; 84153; 83735

== ENCOUNTER 2022-11-02 16:09 | Outpatient (REF) | payer OTHER, MEDICAID, SELFPAY ==
[2022-11-02 16:54] LABS: Sodium 136 mmol/L (136-145)
== END 2022-11-02 16:10 | disposition home or self-care (01) ==
LOC: NCHCN 16:09
PROVIDERS: PCP Family Medicine; Visit Provider Family Medicine
DX: R03.0 Elevated blood-pressure reading, without diagnosis of hypertension (principal); F10.10 Alcohol abuse, uncomplicated; Z12.5 Encounter for screening for malignant neoplasm of prostate; N40.0 Benign prostatic hyperplasia without lower urinary tract symptoms
CPT/HCPCS: 84153; 84295

== ENCOUNTER 2023-03-28 08:12 | Outpatient (REF) | payer OTHER, MEDICAID, SELFPAY ==
[2023-03-28 14:52] LABS: Calculated LDL 151 mg/dL (<100); Cholesterol 235 mg/dL (<200); HDL Cholesterol 60 mg/dL (40-60); Triglyceride 121 mg/dL (<150)
[2023-03-28 14:58] LABS: Hemoglobin A1C 5.9 % (<5.7)
== END 2023-03-28 08:13 | disposition home or self-care (01) ==
LOC: NCHCN 08:12
PROVIDERS: PCP Family Medicine; Visit Provider Family Medicine
DX: E78.5 Hyperlipidemia, unspecified (principal); R73.03 Prediabetes
CPT/HCPCS: 80061; 83036

== ENCOUNTER → 2023-04-19 01:10 | Outpatient (CLI) | payer OTHER, MEDICAID, SELFPAY ==
--- NOTE | 2023-04-19 07:30 | DI.US_ITS ---
APPROVED REPORT EXAM: Comprehensive 2D, Doppler, and color-flow Echocardiogram Patient Location: Out-Patient Utility Supervisor [employer]: Tammy Arvizu RDCS (AE) Other Information Study Quality: Adequate Conclusion Normal left ventricular wall thickness and chamber size. EF is 60%. Wall motion is normal Normal right ventricular size and systolic function Both atria are normal in size There is no structural or hemodynamically significant valvular disease Borderline dilated ascending aorta Wall motion Left Ventricle The left ventricle is normal size. The left ventricular systolic function is normal. The left ventric ular ejection fraction is within the normal range. There is normal left ventricular wall thickness. T here is normal LV segmental wall motion. There is no ventricular septal defect visualized. LVEF is 60 %. Right Ventricle Right ventricle is grossly normal in size. Right ventricular systolic function is grossly normal. Atria The left atrium size is normal. The right atrium size is normal. The interatrial septum is intact wit h no evidence for an atrial septal defect. Aortic Valve The aortic valve is normal in structure. Aortic valve is trileaflet. There is no aortic valvular sten osis. No aortic regurgitation is present. Mitral Valve The mitral valve is normal in structure. No evidence of mitral valve stenosis. Trace mitral regurgita tion. Tricuspid Valve The tricuspid valve is normal in structure. There is no tricuspid valve stenosis. Trace tricuspid reg urgitation. The RVSP is 30.5mmHg. Pulmonic Valve Pulmonic valve is not well visualized. There is no pulmonic valvular stenosis. There is no pulmonic v alvular regurgitation. Great Vessels The aortic root is normal in size. The ascending aorta is mildly dilated. Aortic arch is normal in ca liber. IVC is normal in size and collapses >50% with inspiration. 2D Dimensions IVSD d PLAX 0.99 cm M: 0.6-1.2 Ao Root d 3.03 cm M: 3.1 - 3.7 LVPW d PLAX 0.99 cm M: 0.6 - 1.2 Ao Asc Diam d 3.51 cm M: 2.6 - 3.4 LVID d PLAX 4.84 cm M: 4.2 - 5.8 LVDs 3.19 cm M: 2.5 - 4.0 LV EF Teichholz 63.0 % FS 34.13 % LV EDV (Teich) 109.8 mL LV ESV (Teich) 40.7 mL M-Mode TAPSE 2.53 cm (M/F) >1.7 Auto EF LV EDV A4C 97.6 mL LV EDV A2C 106.7 mL LV EDV BP 100.4 mL LV ESV A4C 41.2 mL LV ESV A2C 44.9 mL LV ESV BP 39.2 mL LVEF(%) A4C 57.7 % LVEF(%) A2C 57.9 % LVEF(%) BP 60.9 % LV SV A4C 56.4 ml LV SV A2C 61.8 ml LV SV BP 61.2 ml LV CO A4C 4.0 L/min LV CO A2C 4.5 L/min LV CO BP 4.2 L/min HR A4C 70.18 BPM HR A2C 73.47 BPM LV EDV Index (BP) LV Strain Long Pk Overal Avg (s) 20.76 LV Diastology MV E' medial 0.087 (>0.07 m/s) MV E Vmax 0.66 (0.4-1.3 m/s) MV E/E' MED 7.64 (<14) MV A Vmax 0.95 (0.4-1.3 m/s) MV E' lateral 0.109 (>0.1 m/s) E/A Ratio 0.7 MV E/E' LAT 6.08 (<14) MV E' Average 0.098 m/s MV E/E'(average) 6.77 Aortic Valve AoV Vmax 1.39 m/s LVOT Vmax 1.02 m/s AoV Peak Grad 7.7 mmHg LVOT Peak Grad 4.1 mmHg AoV Area (Vmax) 2.32 cm2 LVOT VTI 0.233 m AoV VTI 0.258 m LVOT Mean Grad 2.0 mmHg AoV Mean Jr. 0.89 m/s LVOT SV 74.12 mL AoV Mean Grad 3.8 mmHg LVOT Diam s 2.00 cm AoV Area (VTI) 2.88 cm2 Velocity Ratio 0.73 Mitral Valve MV DT 351 (160-240 msec) Pulmonary Valve PV Vmax 0.98 (0.5-1.5 m/s) RVOT Vmax 0.72 m/s PV Peak Grad 3.8 mmHg RVOT Peak Gr. 2.1 mmHg PV Mean Jr 0.72 m/s RVOT VTI 0.125 m PV Mean Grad 2.3 mmHg RVOT Mean Gr. 1.0 mmHg Tricuspid Valve RA Pressure 3.00 mmHg TR Vmax 2.62 m/s TV S' 0.16 m/s TR Peak Grad 27.5 mmHg RVSP (TR) 30.5 mmHg
== END ==
PROVIDERS: PCP Family Medicine; Visit Provider Family Medicine
DX: I49.3 Ventricular premature depolarization (principal)
CPT/HCPCS: 93306

== ENCOUNTER 2023-05-18 11:53 | Outpatient (CLI) | payer OTHER, MEDICAID, SELFPAY ==
--- NOTE | 2023-05-18 09:00 | DI.RAD_ITS ---
Exam(s) XR HIP LT COMPLETE AP PELVIS EXAM: XR HIP LT COMPLETE AP PELVIS CLINICAL HISTORY: LEFT HIP PAIN. TECHNIQUE: 2D digital imaging was performed of the left hip. Two views were obtained. AP pelvis an d lateral left hip views were obtained. COMPARISON: CR XR HIP RT COMPLETE AP PELVIS from 05/27/2021 CR XR HIP RT AP LAT ONLY from 05/12/2022 FINDINGS: BONES: No acute fracture is present. No bony destructive lesion is seen. JOINTS: No dislocation present. There is moderately severe narrowing of the superior joint space of t he left hip. There is a stable right total hip replacement. SOFT TISSUE: Vascular calcifications are present. IMPRESSION: 1. Moderately severe narrowing of the superior left hip joint space. 2. Right total hip replacement. DATA REPOSITORY: RADIATION DOSE DELIVERED:
== END 2023-05-18 11:54 | disposition home or self-care (01) ==
LOC: DIORS 11:53
PROVIDERS: PCP Family Medicine; Referring Provider Family Medicine; Visit Provider Student in an Organized Health Care Education/Training Program
DX: M16.12 Unilateral primary osteoarthritis, left hip
CPT/HCPCS: 99213; 73502

== ENCOUNTER 2023-06-27 11:06 | Outpatient (REF) | payer OTHER, MEDICAID, SELFPAY ==
[2023-06-27 15:12] LABS: Anion Gap 10.7 mmol/L (3-11); BUN 19 mg/dL (7-18); CO2 26.3 mmol/L (21.0-32.0); CREATININE 1.1 mg/dL (0.70-1.30); Calcium 9.4 mg/dL (8.5-10.1); Calculated LDL 129 mg/dL (<100); Chloride 102 mmol/L (98-107); Cholesterol 217 mg/dL (<200); Estimated GFR 70.44 (mL/min/1.73m2); Glucose 100 mg/dL (74-106); HDL Cholesterol 68 mg/dL (40-60); Potassium 3.9 mmol/L (3.5-5.1); Sodium 139 mmol/L (136-145); Triglyceride 104 mg/dL (<150)
== END 2023-06-27 11:07 | disposition home or self-care (01) ==
LOC: NCHCN 11:06
PROVIDERS: PCP Family Medicine; Visit Provider Family Medicine
DX: I10 Essential (primary) hypertension (principal); E11.9 Type 2 diabetes mellitus without complications
CPT/HCPCS: 80048; 80061; 83036

== ENCOUNTER → 2023-07-20 04:10 | Outpatient (CLI) | payer OTHER, MEDICAID, SELFPAY ==
--- NOTE | 2023-07-20 08:54 | DI.RAD_ITS ---
Exam(s) XR SHOULDER LT COMPLETE 2+V EXAM: XR SHOULDER LT COMPLETE 2+V CLINICAL HISTORY: M25.512 Pain left shoulder. TECHNIQUE: 2D digital imaging was performed. COMPARISON: CR LEFT SHOULDER COMPLETE from 01/25/2016 CR XR SHOULDER RT COMPLETE 2+V from 07/20/2023 FINDINGS: 3 views No evidence of fracture or dislocation. Advanced degenerative changes in the glenohumeral joint are again noted wivb-vi-doic narrowing of the joint space and prominent. Osteophyte on the inferior articular surface of the humeral head. There are no calcifications in the subacromial space although there is a linear calcification which appear s to be in the region of the superior labrum. AC joint exhibits only mild degenerative changes. Bone density normal. No osseous lesions. IMPRESSION: Advanced osteoarthritic degenerative changes in the left glenohumeral joint again noted. DATA REPOSITORY: RADIATION DOSE DELIVERED:
--- NOTE | 2023-07-20 08:54 | DI.RAD_ITS ---
Exam(s) XR SHOULDER RT COMPLETE 2+V EXAM: XR SHOULDER RT COMPLETE 2+V CLINICAL HISTORY: M25.511 Pain in RT shoulder. TECHNIQUE: 2D digital imaging was performed. COMPARISON: CR RIGHT SHOULDER COMPLETE from 10/27/2011 CR LEFT SHOULDER COMPLETE from 01/25/2016 FINDINGS: 3 views No evidence of acute fracture or dislocation. However, when compared to 2011 there has been signific ant progression of osteoarthritic degenerative change. There is now hhtl-bc-pctx narrowing of the gl enohumeral joint space as well as multiple degenerative subarticular cysts and there are prominent op posing osteophytes on the inferior articular surfaces of the osseous glenoid and humeral head. Also appears to be a few small loose bodies in the inferior recess. No calcifications seen in the subacro mial space. There appears to be os acromiale, best seen on the axial image. IMPRESSION: Compared to 2011 there has been severe progression of osteoarthritic degenerative changes in the lydia ohumeral joint, as described above. DATA REPOSITORY: RADIATION DOSE DELIVERED:
== END ==
PROVIDERS: PCP Family Medicine; Visit Provider Family Medicine
DX: M19.011 Primary osteoarthritis, right shoulder (principal); M19.012 Primary osteoarthritis, left shoulder
CPT/HCPCS: 73030

== ENCOUNTER 2024-01-04 09:39 | Outpatient (REF) | payer OTHER, MEDICAID, SELFPAY ==
--- OUTSIDE RECORDS SUMMARY | 2024-01-04 09:56 | XMS_ITS | Clinical Summary ---
Author Organization [facility] Address [address] [place] [id number] Care Team Providers Care Labor Utilization Superintendent Name Role Phone Lisa Borrero Primary Care Provider [phone] Social History Tobacco Use Types Packs/Day Years Used Date Smoking Tobacco: Never Assessed Sex and Gender Information Value Date Recorded Sex Assigned at Not on file Gender Identity Not on file Sexual Orientation Not on file Plan of Treatment Health Maintenance Due Date Last Done Comments Hepatitis C Screen 1950 RSV Immunization ( o r 60+ Years) (1 - 1-dose 60+ series) 2009 Fall Risk Screening 2014 COVID-19 Vaccine ( season) 2022 Care Teams Labor Utilization Superintendent Relationship Specialty Start Date End Date Lisa Borrero FNP [address] [facility] [place] [address] PCP - General 03/17/10
--- OUTSIDE RECORDS SUMMARY | 2024-01-04 09:56 | XMS_ITS | Encounter Summary ---
Author Organization [facility] Address [address] [place] [id number] Care Team Providers Care Professor Of Religious Studies Name Role Phone Unknown, Provider Primary Care Provider Unava ilable Encounter Details Date Type Department Care Team (Late st Contact Info) Description 03/15/2010 Results Only [facility] [phone] Tate Serna, DO [address] [place] [address] Social History Tobacco Use Types Packs/Day Years Used Date Smoking Tobacco: Never Assessed Sex and Gender Information Value Date Recorded Sex Assigned at Not on file Gender Identity Not on file Sexual Orientation Not on file documented as of this encounter Plan of Treatment Not on file documented as of this encounter Procedures Procedure Name Priority Date/Time Associated Diagnosis Comments SURGICAL PATHOLOGY Routine 03/15/2010 0:00 EST documented in this encounter Results * SURGICAL PATHOLOGY (03/15/2010 0:00 EST) Pathology Report: SURGICAL PATHOLOGY REPORT ? Reports generated via electronic interface contain original data; ? however they are lacking the format of the original report. ? Caution should be taken when reading/interpreti ng unformatted reports. ? Name: ? JATASHIAN, RANI ? Accession #: ? [id number] ? : ? 1950 (Age: 60) ??M ? Collect Date: ? 03/15/2010 ? Location: ? [facility] ? Receive Date: ? 03/16/2010 ? Provider: TATE SERNA DO ? Copy to: [facility]AK[facility] GRIMES ORTHO/PROSTHETIC AIDE ? Final Pathologic Diagnosis: ? Skin of back, excision: ? - Follicular cyst, infundibular type. ? Microscopic Description: ? There is a dermal cyst that is lined by stratified squamous epithelium that matures through a granular layer. ??The cyst is filled with laminated ? orthokeratin. ??(Dr. Fried)/mpl ? Document reviewed and electronically signed by: ? SHALINI L CHAPARRO MD ? Report ??Date: 03/17/2010 13:10 ? By the signature above, the attending physician certifies that he/she has ? personally conducted a gross and/or microscopic examination of the described ? specimens and rendered or confirmed the above diagnosis. ? Specimen(s) Received: ? Sebaceous cyst on back ? Clinical History: ? Sebaceous cyst; Clinical diagnosis code: 706.2 ? Gross Description: ? Received in formalin labelled Jasyn, Rani and sebaceous cyst back is a previously partially incised and fragmented 1.5 x 1.0 x 0.6 cm ferrari-white ? cystic structure with soft pasty contents. ??The outer surface is inked black. ?? The specimen is quadrisected and entirely submitted in a single cassette. (L. ?? Campbell)/mpl ? End of Report ? JESSICA POLO 03/15/2010 03/16/2010 8:2 9 EST Tate Serna DO PATHOLOGY ORDERABLES [facility] [address] [place] [address] documented in this encounter Visit Diagnoses Not on filedocumented in this encounter Care Teams Professor Of Religious Studies Relationship Specialty Start Date End Date Unknown, Provider, PCP - General 03/16/10 03/16/10 documented as of this encounter
--- OUTSIDE RECORDS SUMMARY | 2024-01-04 09:56 | XMS_ITS | Encounter Summary ---
Author Organization [facility] Address [address] [place] [address] Care Team Providers Care Vehicle Assembler Name Role Phone Lisa Borrero OMKAR Primary Care Provider [phone] Encounter Details Date Type Department Care Team (Late st Contact Info) Description 11/03/2022 Lab Requisition [facility] - [address] [id number] Outr Resulting Lab, Provider Social History Tobacco Use Types Packs/Day Years Used Date Smoking Tobacco: Never Assessed Sex and Gender Information Value Date Recorded Sex Assigned at Not on file Gender Identity Not on file Sexual Orientation Not on file documented as of this encounter Plan of Treatment Not on file documented as of this encounter Procedures Procedure Name Priority Date/Time Associated Diagnosis Comments PSA TOTAL, DIAGNOSTIC Routine 11/02/2022 9:15 EDT documented in this encounter Results * PSA TOTAL, DIAGNOSTIC (11/02/2022 9:15 EDT) PSA 1.0 <=6.5 ng/mL 11/03/2022 19:23 EDT [facility] Blood VENOUS BLOOD / Unknown 11/02/2022 9:15 EDT 11/03/2022 17:55 EDT Narrative [facility] - 11/03/2022 19:23 EDT NOTE: Serum PSA concentration should not be interpreted as absolute evidence for the presence or absence of malignant disease. Assayed on Siemens ADVIA [employer]olaaur XPT using chemiluminescent technology.??Values obtained by using different assay methods cannot be used interchangeably. Provider Outr Resulting Lab CHEMISTRY & BLOOD GAS ORDERABLES [facility] [address] [place] [address] documented in this encounter Visit Diagnoses Not on filedocumented in this encounter Care Teams Vehicle Assembler Relationship Specialty Start Date End Date Lisa Borrero FNP [address] [place] [address] PCP - General 03/17/10 documented as of this encounter
--- OUTSIDE RECORDS SUMMARY | 2024-01-04 09:56 | XMS_ITS | Encounter Summary ---
Author Organization [facility] Address [address] [place] [address] Care Team Providers Care Padder Cushion Name Role Phone Lisa Borrero OMKAR Primary Care Provider [phone] Encounter Details Date Type Department Care Team (Late st Contact Info) Description 09/22/2022 Lab Requisition [facility] Pathology & Laboratory Medicine - [address] [id number] Outr Resulting Lab, Provider Social History Tobacco [...] Associated Diagnosis Comments PSA TOTAL, DIAGNOSTIC Routine 09/21/2022 9:55 EDT documented in this encounter Results * PSA TOTAL, DIAGNOSTIC (09/21/2022 9:55 EDT) PSA 1.3 <=6.5 ng/mL 09/22/2022 20:24 EDT [facility] Blood VENOUS BLOOD / Unknown 09/21/2022 9:55 EDT 09/22/2022 18:18 EDT Narrative [facility] - 09/22/2022 20:24 EDT NOTE: Serum PSA concentration should not be interpreted as absolute evidence for the presence or absence of malignant disease. Assayed on Siemens ADVIA [employer] XPT using chemiluminescent technology.??Values obtained by using different assay methods cannot be used interchangeably. Provider Outr Resulting Lab CHEMISTRY & BLOOD GAS ORDERABLES [facility] [address] [place] [address] documented in this encounter Visit Diagnoses Not on filedocumented in this encounter Care Teams Padder Cushion Relationship Specialty Start Date End Date Lisa Borrero FNP [address] [place] [address] PCP - General 03/17/10 documented as of this encounter
--- OUTSIDE RECORDS SUMMARY | 2024-01-04 09:56 | XMS_ITS | Referral Summary ---
Author Organization [facility] Address [address] [place] [id number] Care Team Providers Care Tug Hand Name Role Phone Lisa Borrero Primary Care Provider [phone] Social History Tobacco Use Types Packs/Day Years Used Date Smoking Tobacco: Never Assessed Sex and Gender Information Value Date Recorded Sex Assigned at Not on file Gender Identity Not on file Sexual Orientation Not on file Plan of Treatment Not on file Care Teams Tug Hand Relationship Specialty Start Date End Date Lisa Borrero FNP [address] [place] [address] PCP - General 03/17/10
--- OUTSIDE RECORDS SUMMARY | 2024-01-04 09:56 | XMS_ITS | Encounter Summary ---
Author Organization [facility] Address [address] [place] [address] Care Team Providers Care Wildlife Conservation Professor Name Role Phone Lisa Borrero OMKAR Primary Care Provider [phone] Encounter Details Date Type Department Care Team (Late st Contact Info) Description 03/16/2021 Lab Requisition [facility] - [address] [address] Smiley Damon, DO [address] [place], [place] [id number] Acute cholecystitis Social History Tobacco Use Types Packs/Day Years Used Date Smoking Tobacco: Never Assessed Sex and Gender Information Value Date Recorded Sex Assigned at Not on file Gender Identity Not on file Sexual Orientation Not on file documented as of this encounter Plan of Treatment Not on file documented as of this encounter Procedures Procedure Name Priority Date/Time Associated Diagnosis Comments SURGICAL PATHOLOGY Today 03/16/2021 14 :38 EST Acute cholecystitis documented in this encounter Results * SURGICAL PATHOLOGY (03/16/2021 14:38 EST) Note to Patient The following pathology results have been interpreted by your pathologist and may be available to you before your health provider has had the opportunity to review them. Please allow time for your provider to receive these results and explore management options, if applicable. 03/18/2021 17:54 EST [facility] Final Diagnosis A. GALLBLADDER, CHOLECYSTECTOMY: - Acute gangrenous cholecystitis. - Cholelithiasis (gross only). 03/18/2021 17:54 [facility] Attestation By the signature below, the attending physician certifies that they have 1) personally conducted a gross and/or microscopic examination of the described specimen(s), and/or personally interpreted the results of laboratory testing of the described specimen(s), and 2) personally rendered or confirmed the above diagnosis. 03/18/2021 17:54 [facility] at 1754 Clinical History Acute cholecystitis; clinical diagnosis code: K81.0 03/18/2021 17:54 [facility] Gross Description A. Received in formalin labelled with proper patient identification (initials J, R) and gallbladder is a previously incised gallbladder with an attached segment of cystic duct (8.6 x 5.5 x 3.5 cm). A cystic duct lymph node is not present. The serosa is smooth and ferrari-yellow. The mucosa is reticulated, green isbell and the wall is 0.1 cm in thickness. The cystic duct lumen is patent and measures 0.6 cm in diameter. The cystic duct margin is inked blue. Two jagged green black calculi are present (3.0 x 2.8 x 2.5 cm and 3.2 x 2.2 x 1.8 cm). Two telephone sales representative sections and the en face cystic duct margin are submitted in A1-A2. JENNIFER VITALE(ASCP) 03/17/2021 10:38 03/18/2021 17:54 [facility] Performing Lab [facility] 03/18/2021 17:54 [facility] Scanned Images 03/18/2021 17:54 [facility] Tissue ENTIRE GALLBLADDER / Unknown 03/16/2021 14:38 EST 03/16/2021 23:43 EST Smiley Damon DO PATHOLOGY ORDERABLES [facility] [address] [place] [address] documented in this encounter Visit Diagnoses Diagnosis Acute cholecystitis documented in this encounter Care Teams Wildlife Conservation Professor Relationship Specialty Start Date End Date Lisa Borrero FNP [address] [place] [address] PCP - General 03/17/10 documented as of this encounter
[2024-01-04 15:14] LABS: Hemoglobin A1C 5.8 % (<5.7)
[2024-01-04 15:30] LABS: Anion Gap 11.4 mmol/L (3-11); BUN 19 mg/dL (7-18); CO2 26.6 mmol/L (21.0-32.0); CREATININE 1.2 mg/dL (0.70-1.30); Calcium 9.4 mg/dL (8.5-10.1); Calculated LDL 109 mg/dL (<100); Chloride 104 mmol/L (98-107); Cholesterol 200 mg/dL (<200); Estimated GFR 63.46 (mL/min/1.73m2); Glucose 101 mg/dL (74-106); HDL Cholesterol 57 mg/dL (40-60); Potassium 4.1 mmol/L (3.5-5.1); Sodium 142 mmol/L (136-145); Triglyceride 172 mg/dL (<150)
== END 2024-01-04 09:40 | disposition home or self-care (01) ==
LOC: NCHCN 09:39
PROVIDERS: PCP Family Medicine; Visit Provider Family Medicine
DX: I10 Essential (primary) hypertension (principal); R73.03 Prediabetes
CPT/HCPCS: 80048; 80061; 83036

== ENCOUNTER → 2024-02-15 14:23 | Outpatient (BNVA) | payer OTHER, MEDICAID, SELFPAY | PROVIDERS: PCP Family Medicine; Referring Provider Family Medicine; Visit Provider Student in an Organized Health Care Education/Training Program | DX: M16.12 Unilateral primary osteoarthritis, left hip (principal) | CPT/HCPCS: 99214 ==

== ENCOUNTER 2024-03-28 04:46 | Outpatient (CLI) | payer MEDICARE, MEDICAID, SELFPAY ==
[2024-03-28 12:01] LABS: HCT 48.1 % (40.0-50.0); HGB 15.7 g/dL (13.5-17.5); MCH 29.3 pg (27.0-33.0); MCHC 32.6 % (32.0-36.0); MCV 90 fL (80-95); MPV 9.9 fL (8.0-11.0); Platelet Count 244 10^3/uL (130-400); RBC 5.36 10^6/uL (4.36-5.78); RDW 12.8 % (11.8-14.1); RDW-SD 42.2 fL; WBC 9.47 10^3/uL (4.4-10.8)
[2024-03-28 12:36] LABS: Anion Gap 9.6 mmol/L (3-11); BUN 25 mg/dL (7-18); CO2 26.4 mmol/L (21.0-32.0); CREATININE 1.2 mg/dL (0.70-1.30); Calcium 9.7 mg/dL (8.5-10.1); Chloride 103 mmol/L (98-107); Estimated GFR 63.07 (mL/min/1.73m2); Glucose 104 mg/dL (74-106); Potassium 3.9 mmol/L (3.5-5.1); Sodium 139 mmol/L (136-145)
== END 2024-03-28 04:47 | disposition home or self-care (01) ==
LOC: LBO 04:46
PROVIDERS: PCP Family Medicine; Visit Provider Student in an Organized Health Care Education/Training Program
DX: M16.12 Unilateral primary osteoarthritis, left hip (principal); Z01.818 Encounter for other preprocedural examination
CPT/HCPCS: 36415; 80048; 85027

== ENCOUNTER 2024-04-10 06:00 | Day surgery (SDC) | payer MEDICARE, MEDICAID, SELFPAY ==
[2024-04-10] VITALS (29 sets, daily range): BP systolic 113–166; BP diastolic 52–94; PULSE 45–66; RESP 12–23; TEMP 35.9–36.5; O2SAT 92–100; BMI 28.0
[2024-04-10] MEDS: Lactated Ringers 1,000 ML 80 ML IV (06:45)
[2024-04-10] MEDS: Celecoxib 200 MG CAP 400 MG PO (06:49)
[2024-04-10] MEDS: Acetaminophen 500 MG TAB 1000 MG PO (06:50)
--- NOTE | 2024-04-10 06:58 | W.ANESPRE ---
General Info Date of Service Date Performed: 04/10/24 Height: 6 ft Weight: 93.6 kg Body Mass Index (BMI): 28.0 Surgical Procedure: Operation Date: 04/10/24 07:50 Proposed Procedure Side Surgeon p Hip Total Hip Anterior, Corail Left Wesly Hooks MD Meds Allergies and Home Medications Allergies Allergy/AdvReac Type Severity Reaction Status Date / Time lisinopril AdvReac Unknown Other (See Verified 04/08/24 13:46 Comment) Home Medication ?Medication ?Instructions ?Recorded losartan 25 mg tablet 100 mg PO HS 10/19/20 triamterene 37.5 1 cap PO DAILY 10/19/20 mg-hydrochlorothiazide 25 mg capsule amlodipine 5 mg tablet 5 mg PO HS 03/22/21 acetaminophen 500 mg tablet 500 mg PO Q6H PRN PRN pain #90 tabs 05/11/21 bimatoprost 0.01 % eye drops 1 drp ophthalmic (eye) DAILY 01/27/22 (Marjorie) metoprolol succinate 25 mg 25 mg PO HS 02/15/24 tablet,extended release 24 hr celecoxib 200 mg capsule 200 mg PO DAILY PRN 04/10/24 Current Visit Medications: Current Medications Generic Name Dose Route Start Last Admin Trade Name Freq PRN Reason Stop Dose Admin Acetaminophen 1,000 mg 04/10/24 06:00 04/10/24 06:50 Acetaminophen 500 Mg Tab PO 05/09/24 23:59 1,000 mg PREOP TERRA Administration Celecoxib 400 mg 04/10/24 06:00 04/10/24 06:49 Celecoxib 200 Mg Cap PO 05/09/24 23:59 400 mg PREOP TERRA Administration Ringer's Solution 1,000 mls @ 80 mls/hr 04/10/24 06:00 04/10/24 06:45 IV 05/09/24 23:59 80 mls/hr INFUSION TERRA Administration Cefazolin Sodium/Dextrose 2 gm in 50 mls @ 100 mls/hr 04/10/24 06:00 Ancef Duplex IVPB 05/09/24 23:59 PREOP TERRA Tranexamic Acid/Sodium Chloride 1,000 mg in 100 mls @ 600 mls/hr 04/10/24 06:00 IVPB 05/09/24 23:59 PREOP TERRA IV Miscellaneous Supplies 1 each 04/10/24 06:00 Iv Access IV 05/09/24 23:59 DIRECTED TERRA Sodium Chloride 0 ml 04/10/24 06:00 Normal Saline Flush 10 Ml Syr IV 05/09/24 23:59 PRN PRN Sodium Chloride 0 ml 04/10/24 06:00 Normal Saline 10 Ml Vial IJ 05/09/24 23:59 DIRECTED PRN Sterile Water 0 ml 04/10/24 06:00 Water,Injection,Sterile 10 Ml Vial IJ 05/09/24 23:59 DIRECTED PRN PFSH Active Problems Active Problems: Problem Status Onset Code Osteoarthritis of left hip Acute M16.12 Glaucoma Chronic H40.9 Diverticulosis of colon without diverticulitis Acute K57.30 Screening for colon cancer Acute Z12.11 Medical History Medical History Acute cholecystitis BPH (benign prostatic hyperplasia) SNHL (sensory-neural hearing loss), asymmetrical Lumbar spondylosis DDD (degenerative disc disease), lumbar Osteoarthritis involving joints of upper arms, bilateral Osteoarthritis Hypertension Surgical History Surgical History 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) Hx laparoscopic cholecystectomy History of colonoscopy (~09/06/22) 12/31/2010 Tobacco Smoking/Tobacco Use Status: Never Alcohol Alcohol Intake: current Alcohol intake frequency: a few times a week Alcohol type: beer Substance Use Substance use: Never Substance use type: does not use Vital Signs and Lab Results Vital Signs Most Recent Vital Signs in EMR: Most Recent Vital Signs Temp Pulse Resp BP Pulse Ox 36.1 C L 63 20 166/94 H 98 04/10/24 06:23 04/10/24 06:23 04/10/24 06:23 04/10/24 06:23 04/10/24 06:23 Lab Results Blood Type / Crossmatch: No Data to Display Complete Blood Count: White Blood Count 9.47 10^3/uL (4.4-10.8) 03/28/24 11:51 Red Blood Count 5.36 10^6/uL (4.36-5.78) 03/28/24 11:51 Hemoglobin 15.7 g/dL (13.5-17.5) 03/28/24 11:51 Hematocrit 48.1 % (40.0-50.0) 03/28/24 11:51 Platelet Count 244 10^3/uL (130-400) 03/28/24 11:51 Complete Metabolic Panel: Sodium 139 mmol/L (136-145) 03/28/24 11:51 Potassium 3.9 mmol/L (3.5-5.1) 03/28/24 11:51 Chloride 103 mmol/L (98-107) 03/28/24 11:51 Carbon Dioxide 26.4 mmol/L (21.0-32.0) 03/28/24 11:51 BUN 25 mg/dL (7-18) H 03/28/24 11:51 Creatinine 1.2 mg/dL (0.70-1.30) 03/28/24 11:51 Est GFR (CKD-EPI 2020) 63.07 (mL/min/1.73m2) 03/28/24 11:51 Calcium 9.7 mg/dL (8.5-10.1) 03/28/24 11:51 Glucose 104 mg/dL (74-106) 03/28/24 11:51 Liver Function Panel: No Data to Display Coagulation Panel: No Data to Display Cardiac Panel: No Data to Display Arterial Blood Gas: No Data to Display Venous Blood Gas: No Data to Display Pancreas Panel: No Data to Display Thyroid Panel: No Data to Display Infectious Disease: No Data to Display Blood Cultures: No Data to Display Toxicology Panel: No Data to Display Imaging and Studies Imaging and Studies Study information below may be from another EMR and interpreted by another provider. Please see original notes in EMR for more complete details. EKG Summary: DATE/TIME OF SERVICE: 03/16/21 0039 Exam: Resting ECG Reason for Exam: epigastric pain HR:70 bpm ECG Measurements Heart Rate 70 AXIS SC 178 P 52 QRSd 110 QRS 26 QT 426 T28 QTc 462 Conclusion Sinus rhythm...normal P axis, V-rate 60- 99 Echocardiogram Summary: 04/19/23 Conclusion Normal left ventricular wall thickness and chamber size. EF is 60%. Wall motion is normal Normal right ventricular size and systolic function Both atria are normal in size There is no structural or hemodynamically significant valvular disease Borderline dilated ascending aorta Anesthesia Assessment and Plan Anesthesia History Personal History: No History of Anesthesia Complications Family History: No Family History of Anesthesia Complications Exercise Tolerance Exercise Tolerance: Metabolic Equivalents>4 Pertinent Negatives Pertinent Negatives: No Symptoms of GERD, No Major Cardiovascular Symptoms or Complaints, No Major Pulmonary Symptoms or Complaints and No History of CVA/TIA Cardiac & Pulmonary Exam Cardiac Exam: Normal S1/S2 Heart Sounds Pulmonary Exam: Clear Bilateral Breath Sounds Implantable Cardiac Device Does patient have a Pacemaker or an ICD?: No Airway Exam Known Difficult Airway: No Mallampati Class: 2 Mouth Opening: Normal (> 3cm) Thyromental Distance: Greater than 3 cm Neck Range of Motion: Full ROM Neck Circumference: Thick Teeth Condition: Normal Dentition ASA Classification ASA Score: ASA 2 Emergency Case?: No NPO Status NPO Status: NPO Clears >2 hours, Solids >8 hours Anesthesia Plan Resuscitation Status: Full Code Anesthesia Technique: Spinal Anesthesia Airway Planned: Natural Airway Monitors Used: Standard Monitors Preoperative Comments:: Difficult spinal with last spinal. Record reviewed.
--- NOTE | 2024-04-10 07:19 | PDOC.DSDIS_ITS ---
Date of service: 04/10/24 Discharge Plan Disposition Patient Disposition: Home Condition: Good Discharge Details Reason For Visit: L THR Attending Provider: Wesly Hooks Primary Care Provider: Veena Ley Home Meds and New Rx's Prescriptions: New acetaminophen 500 mg tablet 1,000 mg PO TID Qty: 90 3RF aspirin 81 mg tablet,delayed release (DR/EC) 81 mg PO BID Qty: 60 0RF celecoxib 200 mg capsule 200 mg PO BID Qty: 60 0RF pantoprazole 40 mg tablet,delayed release (DR/EC) 40 mg PO DAILY Qty: 30 0RF dexamethasone 4 mg tablet 4 mg PO DAILY Qty: 2 0RF oxycodone 5 mg tablet 5 mg PO Q4H MDD 6 tabs PRN (Reason: pain) Qty: 20 0RF Continued Lumigan 0.01 % drops 1 drp ophthalmic (eye) DAILY amlodipine 5 mg tablet 5 mg PO HS metoprolol succinate 25 mg tablet extended release 24 hr 25 mg PO HS triamterene-hydrochlorothiazid 37.5-25 mg capsule 1 cap PO DAILY losartan 25 mg tablet 100 mg PO HS Discontinued acetaminophen 500 mg tablet 500 mg PO Q6H PRN PRN (Reason: pain) Qty: 90 3RF celecoxib 200 mg capsule 200 mg PO DAILY PRN Patient Comments: TAKE ONE CAPSULE BY MOUTH EVERY DAY WITH MEALS Discharge Instructions Additional Instructions: Total Hip Discharge Instructions Activity: The most important activity is to walk. You should try to take short walks a few times a day. You have no restrictions on movement or positioning, but do not try to force what you do. You will find some stiffness and weakness with hip flexion (lifting your knee). Do not try to strengthen this too early, continue to practice walking and stairs and this will come. - Outpatient physical therapy can be helpful to help return you to a normal gait and improve your flexibility and strength. This can start around 2 weeks. For some patients, it?s not necessary. Usually this is determined at the time of discharge or at the first post-operative visit. - You should wear the YARA hose on both legs for 2 weeks. Dressing: Keep the surgical dressing in place for at least one week. After the first week it may be removed and replace with light gauze and tape or nothing. It may get wet after 3 days but avoid soaking the dressing. If it gets wet, just lightly pat dry. It is important to always keep some gauze between skin folds, especially when you are sitting. Spend some time with the wound exposed when you are lying flat as the incision does wrinkle onto itself. Medications: - You should take Tylenol and an anti-inflammatory Celebrex as your primary pain control medications. If the Celebrex is too expensive or not covered, please call the office for another alternative (Advil/Ibuprofen or Naproxen/Aleve). - You have been prescribed a stronger pain medication Oxycodone for breakthrough pain, take as needed as prescribed. - You have also been prescribed a stomach acid reduction agent Pantoprozole to help reduce stomach acid and reflux. - You have also been prescribed Decadron to help with post-operative nausea and pain. You will take this for two days starting tomorrow. - You will be taking Aspirin 81mg twice a day for DVT prevention unless instructed otherwise. - If you have constipation you should take Colace or Miralax (both [id number]). It takes most people 3-4 days to have a bowel movement. Follow-up: 2 weeks If you have any acute concerns or questions, please do not hesitate to contact the office at [phone]. You may contact Dr. Hooks with any questions after hours through the hospital at [phone] or on his cell phone at [phone]. Referrals: Wesly Hooks MD [ [facility] STAFF PHYSICIAN] - Equipment/Supplies: Walker Activity:: Activity as Tolerated Shower/Bathe:: 72 hours Diet:: As Tolerated Discharge Orders Discharge Orders: Discharge Order (Routine); Ordered 04/10/24 Ordered By: Trenton Costello DS: Diagnosis Discharge Diagnosis (1) Osteoarthritis of left hip: Status: Acute
[2024-04-10] MEDS: ceFAZolin 2 GM/50 ML BAG IVPB (07:40)
[2024-04-10] MEDS: TRANEXAMIC ACID/SOD. CHL. 1,000 MG/100 ML BAG 600 MG IVPB (07:51)
--- NOTE | 2024-04-10 09:04 | ROE_ITS ---
Operative Note Operative Note PRE-OP DIAGNOSIS: Left Hip Osteoarthritis POST-OP DIAGNOSIS: same PROCEDURE: Left Anterior Total Hip Arthroplasty with Intraoperative Navigation SURGEON: Wesly Hooks AUTO DESIGN CHECKER: Trenton Costello ANESTHESIA TYPE: Spinal Refer to Anesthesia Record ESTIMATED BLOOD LOSS: 250 PATHOLOGY: none sent TOURNIQUET TIME: 0 COMPLICATIONS: None Patient was transported to: PACU Patient's condition: stable Implants: 1. Depuy [place] Acetabular Component, 58mm 2. Depuy Acetabular Liner, [id number] 3. Depuy Actis Standard Collared Femoral Stem, Size 7 4. Depuy Altrx Ceramic Femoral Head, Size 36+5mm Indications: I have seen Alcon in clinic for symptoms of hip arthritis, confirmed with radiographic findings. He has exhausted nonoperative methods and was having significant limitations in daily function and desired better function and less pain. I discussed the technical details of a hip replacement. I explained the risks of the procedure to include, but not limited to, bleeding, infection, pain, stiffness, fracture, damage to nerves and vessels, damage to muscles and tendons, loosening, instability, leg length inequality, need for repeat procedure, blood clot and cardiopulmonary demise. Despite these risks, Alcon elected to proceed. Findings: There was significant signs of arthritis throughout the hip with a very large and thickened ligamentum teres. Procedure Description: Alcon was greeted in the preoperative holding area where the correct side was identified and marked. The consent was reviewed with the patient and signed. The history and physical was updated. All questions were answered. He was taken back to the operating room. A spinal anesthestic was then administered. The feet were wrapped with cast padding and Coban and then placed into the boot liners and then into the boots. Care was taken to protect the skin and make sure the heels were fully down and the boots were stable. The patient was then positioned onto the HANA table. Both legs were held in a neutral position. SCDs were applied. The patient was then slid down onto a peroneal post. Prophylactic antibiotics in the form of Cefazolin were administered. 1g of Tranxemic Acid was given intravenously within 30 minutes of incision. The left leg was then prepped with Chloraprep and draped in a standard fashion. A second prep with Chloraprep was performed prior to placement of a shower-curtain type drape with Iodine impregnated skin protection. A timeout to confirm correct identity, side and site, procedure, allergies, anesthesia, and medical concerns was performed. An obliquely oriented incision was made starting lateral to the ASIS and running distal over the Tensor Fascia Amalia (TFL) muscle belly toward the fibular head, approximately 10cm. The skin and soft tissue was dissected sharply, through Lou?s fascia, and to the fascia of the TFL. With the fascia and superior border of the IT band identified, the fascia was incised with a new knife just above any perforators from the IT band. The TFL muscle belly was bluntly dissected away from the fascia and moved laterally. The fat between TFL and rectus was identified to ensure the dissection was not within the TFL. Blunt dissection created space between abductors and the capsule and retractor was placed over the lateral femoral neck. The fibers of the rectus femoris tendon were identified and these were freed from the anterior capsule. A second cobra retractor was placed around the medial femoral neck. The TFL was further retracted laterally to show the deep fascia. Careful dissection through this layer identified three main crossing vessels of the lateral femoral circumflex. These were cauterized in multiple locations and then cut without any noticeable bleeding. The TFL was further released bluntly from the deep fascia to expose anterior hip capsule and fat The soft tissue orthopaedic retractor was then placed beneath the TFL and against sartorius and medial soft tissues to protect and retract the soft tissues. A T-capsulotomy was then performed starting at the superior lateral acetabulum and moving distally to the intertrochanteric ridge. These capsular flaps were tagged with a No. 1 Vicryl and elevated from within. The capsular flaps were released to the shoulder of the lateral neck and to the lesser trochanter to give excellent visualization of the proximal femur. A neck osteotomy was performed using an oscillating saw based on preoperative templates. This cut started in the shoulder and of the lateral neck and exited medially. The saw was at all times directed medially to avoid injury to the greater trochanter. Gross traction was applied to the leg and the osteotomy opened. The femoral head was removed with a corkscrew, making sure to protect the TFL on its exit. There was a very thickened ligamentum teres which had to be transected to remove the head. Traction was released after head removal. This was measured on the back table to determine the starting reamer size. Por tions of the rectus obscuring visualization were minimally elevated off the superior acetabulum. An anterior retractor was placed over the anterior wall between capsule and labrum and attached to the Gripper retraction system. The femur was rotated to 90 degrees and medial capsule was fully released until the lesser trochanter was palpable and visible; the femur was returned to 30 degrees. A posterior retractor was placed similarly between capsule and labrum. This provided excellent visualization. The contents of the cotyloid fossa were removed with electrocautery and the labrum was removed with a knife. There was a notable floor osteophyte. There was significant chondromalacia of the superior acetabulum. Acetabular reaming began with a 50mm reamer. This first reaming was directed anterior to posterior and medial to get down to the true floor. This was inspected and reamed until the true floor was reached. The anterior retractor was then released and entry and exit was provided by traction on the capsular flaps. I then reamed sequentially up to a 58mm reamer where good fit was obtained. The larger reamers were oriented based on anatomical reference of the anterior and lateral teague to ensure proper abduction and anteversion. Positioning and size was confirmed with the fluoroscopy. A 58mm Depuy [place] acetabular component was selected. The acetabulum was reamed around the periphery with the selected acetabular size to prevent a rim fit. The deep tissues were irrigated. The acetabular component was then impacted in a position of about 40-45 degrees of abduction and 15-20 degrees of anteversion, using the patient?s anatomy as the ultimate landmark. Fluoroscopy was used to confirm this. There was excellent resident service coordinator of the acetabular component and the inserting handle was removed. The acetabular liner, Depuy [id number] polyethylene liner, was inserted and lined up with the tines of the acetabular component. There was no soft tissue interposition. The liner was then impacted into position and confirmed to be well-seated. A portion of the juaquin-articular cocktail was then injected around the acetabulum into the capsule and periosteum. This cocktail consisted of 123mg of Ropivacaine, 0.25mg of Epinephrine, 0.04mg of Clonidine, and 15mg of Ketorolac, diluted to 50cc. The leg was rotated to 120 degrees. Any remaining medial capsule was released until the lesser trochanter was easily palpable. A retractor was placed medially. The lateral capsule was further released into the shoulder to allow access to the greater trochanter. A [place] retractor was placed over the greater trochanter which allowed the trochanter to flip in front of the capsule for excellent exposure. The leg was brought down into maximal extension and 20 degrees of adduction while ensuring there was no impingement on the acetabulum. Any remnant capsule within the trochanter was released. Piriformis and obturator externis were identified and protected. There was excellent access to the proximal femur. The lateral neck remnant was removed with a rongeur. A blunt canal probe was used to identify the canal and trajectory for later broaching. A box osteotome initiated the broach course. A small curved rasp and a curved curette were used to work laterally. Broaching then began with a starter Actis broach. This was inserted manually around the trochanter and into the canal before mallet blows. The broach was seated to a few millimeters below the cut level based on the neck cut and the preoperative template. Sequential broaching was continued until a tight fit was obtained with good rotational control of the femur. A trial standard neck was inserted along with a +1.5 trial head. The leg was brought out of extension and adduction and then reduced with traction and internal rotation. The leg was stable anteriorly in a position of 30 degrees of extension and 90 degrees of external rotation. Fluoroscopy was used to ensure there was no fracture and the stem was seated well. Leg lengths were checked with an AP pelvis and pelvic reference points. [facility] [employer] navigation system was used to confirm appropriate positioning and leg length and offset. This correctly approximated the leg length but under-corrected the offset. This was corrected by advancing the broach 2-3mm and going to a +5mm head. Once content with the desired offset and leg lengths, the leg was brought back into extension, external rotation and adduction. The periosteum and surrounding tissue was injected with remaining portion of the juaquin-articular cocktail. The proximal femur was irrigated as well as the deep tissues. The Serious [place]uy Actis standard collared stem, size 7, was then manually inserted into the proximal femur making sure to control rotation. It was then malleted into position with light blows, giving breaks to allow bone expansion and decrease risk of fracture. The selected Depuy Altrx Ceramic Head, size 36+5mm, was then placed onto the clean and dry trunnion and secured with impaction onto the tapered fit. The leg was brought back out of extension and adduction and reduced with traction and internal rotation. Stability was confirmed with no shuck at 90 degrees of external rotation and 30 degrees of extension. No impingement through range of motion arc. Final x-ray images were obtained with fluoroscopy to confirm adequate positioning and no intraoperative fracture. The deep tissues were thoroughly irrigated with Surgiphor, betadine solution. This was allowed to sit in the wound for 3 minutes before being thoroughly i rrigated out with normal saline. The capsule was then reapproximated with the previously placed sutures and the indirect head of the rectus was inspected and reapproximated with a #1 Vicryl. The TFL fascia was finally closed with a No. 2 Stratafix, barbed suture. Deep tissues were then reapproximated with 0 Vicryl and a running 2-0 Vicryl. The skin was closed with a running 4-0 Monocryl in a subcuticular fashion. This was reinforced with skin glue. A Mepilex silver dressing was applied. At the end of the case, all counts were correct. Alcon was transferred to the hospital bed without difficulty and suffering no apparent complication. Alcon has a good prognosis. Physical therapy will start today and without restrictions, weight-bearing as tolerated. Aspirin 81mg BID will be used for DVT prophylaxis. Date of Procedure: 04/10/24
--- NOTE | 2024-04-10 09:10 | DI.RAD_ITS ---
Exam(s) XR HIP LT IN OR EXAM: XR HIP LT IN OR CLINICAL HISTORY: Osteoarthritis of left hip. TECHNIQUE: 2D and realtime digital imaging was performed. COMPARISON: CR XR HIP LT COMPLETE AP PELVIS from 05/18/2023 FINDINGS: The heart, it appears shows placement of the left hip prosthesis. The alignment appears satisfactory . Please see procedure note for details. Fluoro time: 31.4seconds RADIATION DOSE DELIVERED: Ka,r=4.23 mGy
[2024-04-10] MEDS: fentaNYL 100 MCG/2 ML VIAL IVP ×3 (09:38→10:04)
[2024-04-10] MEDS: oxyCODONE 5 MG TAB PO (11:10)
--- NOTE | 2024-04-10 11:53 | W.ANESPOSTOP ---
Postoperative Evaluation Date, Time and Location Date Performed: 04/10/24 Time Performed: 10:44 Patient Location: Day Surgery Unit Vital Signs Most Recent Imported Vital Signs: Most Recent Vital Signs Temp Pulse Resp BP Pulse Ox 35.9 C L 66 16 114/66 95 04/10/24 11:48 04/10/24 11:48 04/10/24 11:48 04/10/24 11:48 04/10/24 11:48 Pain Score Most Recent Pain Score: Most Recent Pain Score Pain Level 2 04/10/24 11:48 Assessment Mental Status: Awake (Alert & Oriented to Patient Baseline) Airway and Respiratory Function: Patent airway with normal (patient baseline) respiratory exam Cardiovascular Function: Hemodynamically Stable Hydration Status: Adequately Hydrated Nausea & Vomiting: No Nausea or Vomiting Pain: Pain is tolerable per patient Peripheral Nerve Block: Patient did not receive a nerve block
--- NOTE | 2024-04-10 12:40 | PT.INIE ---
PT Notes Visit Reasons: L THR Physical Therapy Day Surgery Initial Evaluation Date: 04/10/2024 Referring Doctor: JENNIFER Cordova/Dr. Hooks PT Orders: PT CONSULT: PT evaluation status post Ortho surgery Precautions: Activities as tolerated, weightbearing as tolerated left lower extremity,TEDS x 2 weeks Patient Profile/Admitting Diagnosis: Patient is 74-year-old male presenting status post elective left CRISTIANA under spinal anesthesia performed by Dr. Hooks on 04/10/2024. Postop uncomplicated. PMHX: Acute cholecystitis BPH (benign prostatic hyperplasia) SNHL (sensory-neural hearing loss), asymmetrical Lumbar spondylosis DDD (degenerative disc disease), lumbar Osteoarthritis involving joints of upper arms, bilateral Osteoarthritis Hypertension Surgical History 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) Hx laparoscopic cholecystectomy History of colonoscopy (~09/06/22) 12/31/2010 Social History/Home Situation: Patient resides with in second-floor [address] steps to enter with bilateral rails. Patient independent without assistive device prior to surgery. Patient independent ADLs, meal prep, driving, shopping. Patient reports being active with hiking and outdoor activities prior to hip replacements. Equipment Owned/DME: FWW[adjusted to proper height] Subjective: Patient reports feeling good eager to move and return home. Patient looking forward to spring where he can return to hiking. Objective: [] General Observation: male semireclined on stretcher ice pack to left hip, present Mental Status: Alert and oriented x 4, motivated cooperative eager to participate in PT eval; able to follow instructions Pain: Left hip 1?2 Vitals: BP 114/66, pulse 66, O2 sat 95% on room air ROM: [] Right Upper Extremity: WFL Left Upper Extremity: WFL Right Lower Extremity: WFL Left Lower Extremity: Within functional limits Strength: [] Right Upper Extremity: 5/5 Left Upper Extremity: 5/5 Right Lower Extremity: Globally hip 4/5 knee 5/5 ankle 4/5 Left Lower Extremity: Hip flexion: 3 -/5; hip abduction: 3 -/5; hip extension: 3 -/5; knee extension:>/=to 3/5; knee flexion: 3 -/5 ankle DF: 4/5 ; ankle PF: 4/5 Sensation: Intact BLE Bed Mobility/Transfers: Supine to sit independent Sit to stand independent Stand to sit independent Bed to chair SBA with FWW Gait: Patient ambulated with FWW SBA 200 feet level surfaces including turns demonstrating reciprocal pattern. Stairs: 3 sets of 5 stairs with bilateral rails step to pattern SBA to simulate entrance into home (13 [address]) Balance: Static Sitting: Normal Dynamic Sitting: Good Static Standing: Good Dynamic Standing: Fair plus Special Tests: [] Mobility Limitations Standardized Measure [] [facility] AM-PAC 6 clicks Basic Mobility Inpatient Short Form: [] Raw Score: 22 CMS Score: 20.91% Informed Consent/Education: Patient instructed in purpose of PT consult. Packet containing CRISTIANA exercise protocol has been given to patient. Education and training on initial set of exercises that can be done at home have been completed with patient. [id number]: Patient and participated in stair training, bed mobility, car transfer and donning and doffing clothing for ADL management. Patient's able to provide proper cueing for car transfer including lowering backrest to allow for increased foot clearance entering and exiting the vehicle. Assessment: Patient is a 74-year-old male who presents with clinical signs and symptoms consistent with current/admitting diagnoses that have resulted to mobility limitations, gait instability, generalized weakness, and impairment of motor control as demonstrated by the following impairment level findings: 1. Decreased strength to left hip major muscle groups 2. Impaired standing balance 3. Increased time to complete ADL/mobility tasks Impairments are contributing to the following functional limitations: 1. Inability to safely ambulate without assistive device 2. Increase completion time for mobility ADL performance 3. Increased fall risk 4. Difficulty performing stairs safely alone Patient is assessed as a moderate complexity based on the following: History: 74-year-old male with impairment level findings, functional limitations, and past medical history as indicated above Examination: Demonstrable impairment in strength, balance, and mobility level with underlying impairments and functional limitations as documented above Presentation: Evolving/stable Decision Making: Moderate Goals: N/A. Plan of Care/Treatment Plan: N/A. DISCHARGE RECOMMENDATIONS: Home with home exercise program and recommendation for outpatient PT when appropriate per MD TREATMENT CODE/TIME: 05000,[id number] Thank you for the opportunity to participate in the care of this patient. Janet Treviño PT [facility]
== END 2024-04-10 12:55 | disposition home or self-care (01) ==
PROVIDERS: PCP Family Medicine; Visit Provider Student in an Organized Health Care Education/Training Program
PROC: (CPT 27130; principal; 2024-04-10 07:30)
DX: M16.12 Unilateral primary osteoarthritis, left hip (principal); I10 Essential (primary) hypertension
CPT/HCPCS: 20985; 27130; 97162; 97530; 73501; C1776; J0690; J1100; J2003; J2250; J2371; J2401; J2405; J2704; J3010

== ENCOUNTER 2024-04-22 12:03 | Outpatient (CLI) | payer MEDICARE, MEDICAID, SELFPAY ==
--- NOTE | 2024-04-22 09:15 | DI.RAD_ITS ---
Exam(s) XR HIP LT COMPLETE AP PELVIS EXAM: XR HIP LT COMPLETE AP PELVIS INDICATION: 1ST POST OP S/P L CRISTIANA. COMPARISON: CR XR HIP LT COMPLETE AP PELVIS from 05/18/2023 XA XR HIP LT IN OR from 04/10/2024 TECHNIQUE: 2D digital imaging was performed. Two views. FINDINGS: Stable alignment of the bilateral hip prostheses. No abnormal bony lucencies. DATA REPOSITORY: RADIATION DOSE DELIVERED:
== END 2024-04-22 12:04 | disposition home or self-care (01) ==
LOC: DIORS 12:04
PROVIDERS: PCP Family Medicine; Visit Provider Physician Assistant
DX: Z96.642 Presence of left artificial hip joint (principal); Z47.1 Aftercare following joint replacement surgery
CPT/HCPCS: 99024; 73502

== ENCOUNTER → 2024-05-20 08:25 | Outpatient (BNVA) | payer MEDICARE, SELFPAY | PROVIDERS: PCP Family Medicine; Referring Provider Family Medicine; Visit Provider Student in an Organized Health Care Education/Training Program | DX: Z47.1 Aftercare following joint replacement surgery (principal); Z96.642 Presence of left artificial hip joint | CPT/HCPCS: 99024 ==

== ENCOUNTER 2024-07-08 14:08 | Outpatient (REF) | payer MEDICARE, MEDICAID, SELFPAY ==
[2024-07-08 15:38] LABS: Hemoglobin A1C 5.7 % (<5.7)
[2024-07-08 16:14] LABS: Anion Gap 8.3 mmol/L (3-11); BUN 25 mg/dL (7-18); CO2 26.7 mmol/L (21.0-32.0); CREATININE 1.3 mg/dL (0.70-1.30); Calcium 9.4 mg/dL (8.5-10.1); Chloride 104 mmol/L (98-107); Estimated GFR 57.29 (mL/min/1.73m2); Glucose 113 mg/dL (74-106); Potassium 4.2 mmol/L (3.5-5.1); Sodium 139 mmol/L (136-145)
[2024-07-09 19:11] LABS: Calculated LDL 141 mg/dL (<100); Cholesterol 217 mg/dL (<200); HDL Cholesterol 55 mg/dL (>or=40); Triglyceride 106 mg/dL (<150)
== END 2024-07-08 14:09 | disposition home or self-care (01) ==
LOC: NCHCN 14:08
PROVIDERS: PCP Family Medicine; Visit Provider Family Medicine
DX: I10 Essential (primary) hypertension (principal); R73.03 Prediabetes; E78.5 Hyperlipidemia, unspecified
CPT/HCPCS: 80048; 80061; 83036

== ENCOUNTER 2024-11-07 15:08 | Outpatient (REF) | payer MEDICARE, SELFPAY ==
[2024-11-11] LABS: B. miyamotoi PCR Negative (Negative); Babesia divergens/MO-1 Negative (Negative); Ehrlichia muris eauclairensis Negative (Negative)
[2024-11-11 12:59] LABS: Lyme Ab w Rflx to Lyme Confirm Negative (Negative)
== END 2024-11-07 15:09 | disposition home or self-care (01) ==
LOC: NCHCN 15:08
PROVIDERS: PCP Family Medicine; Visit Provider Family Medicine
DX: S30.860D Insect bite (nonvenomous) of lower back and pelvis, subsequent encounter (principal); W57.XXXD Bitten or stung by nonvenomous insect and other nonvenomous arthropods, subsequent encounter
CPT/HCPCS: 87798; 86618

== ENCOUNTER 2025-01-09 09:48 | Outpatient (REF) | payer MEDICARE, SELFPAY ==
[2025-01-09 17:51] LABS: Hemoglobin A1C 5.9 % (<5.7)
[2025-01-09 18:11] LABS: ALT 22 U/L (10-49); AST 23 U/L (<34); Albumin 4.4 g/dL (3.4-5.0); Alkaline Phosphatase 80 U/L (46-116); Anion Gap 8.6 mmol/L (3-11); BUN 17 mg/dL (9-23); Bilirubin, Total 0.60 mg/dL (0.2-1.2); CO2 25.4 mmol/L (20.0-31.0); Calcium 9.4 mg/dL (8.3-10.6); Chloride 103 mmol/L (98-107); Cholesterol 131 mg/dL (<200); Glucose 105 mg/dL (74-106); HDL Cholesterol 60 mg/dL (>40); Potassium 4.4 mmol/L (3.5-5.1); Sodium 137 mmol/L (136-145); Total Protein 7.3 g/dL (5.7-8.2)
== END 2025-01-09 09:49 | disposition home or self-care (01) ==
LOC: NCHCN 09:48
PROVIDERS: PCP Family Medicine; Visit Provider Family Medicine
DX: I10 Essential (primary) hypertension (principal); E78.5 Hyperlipidemia, unspecified; R73.03 Prediabetes
CPT/HCPCS: 80053; 80061; 83036

== ENCOUNTER 2025-01-16 10:28 | Outpatient (REF) | payer MEDICARE, SELFPAY | END 2025-01-16 10:29 | disposition home or self-care (01) | LOC: NCHCN 10:28 | PROVIDERS: PCP Family Medicine; Visit Provider Family Medicine | DX: I10 Essential (primary) hypertension (principal) | CPT/HCPCS: 82043; 82570 ==